=== PATIENT | female | born 1980 | race American Indian/Alaskan Native ===

== ENCOUNTER 2016-10-02 18:18 | Observation (INO) | payer MEDICAID ==
[2016-10-02 18:19] VITALS: BMI 24.3
[2016-10-02 18:38] VITALS: BP 132/86; PULSE 100; RESP 20; TEMP 98.8; O2SAT 96
[2016-10-02] MEDS ORDERED: Sodium Chloride 0.9% 1,000 ML IV ONE (19:29)
--- NOTE | 2016-10-02 19:29 | C.PDOC ---
History Of Present Illness Patient was brought by EMS for acute ETOH intoxication. Patient was drinking heavily since this morning. Denies any physical complaints at this time. Time Seen by Provider: 10/02/16 19:28 Chief Complaint (Nursing): Substance Abuse History Per: Patient History/Exam Limitations: no limitations Onset/Duration Of Symptoms: Hrs Current Symptoms Are (Timing): Better Suicide/Self Injury Attempted (Context): None Modifying Factor(s): Alcohol Severity: None Pain Scale Rating Of: 0 Associated Symptoms: denies: Depression, Suicidal Thoughts, Suicidal Plan Involuntary Hold By: None Recent travel outside of the [place]: No Additional History Per: Patient Past Medical History Reviewed: Historical Data, Nursing Documentation, Vital Signs Vital Signs: Last Vital Signs Temp 98.8 F 10/02/16 18:37 Pulse 100 H 10/02/16 18:37 Resp 20 10/02/16 18:37 BP 132/86 10/02/16 18:37 Pulse Ox 96 10/02/16 19:53 - Medical History PMH: Anemia, Anxiety (NO MEDS AT PRESENT), Arthritis, Asthma, Depression (NO MEDS AT PRESENT), Diabetes, Gastritis, Gastrointestinal Ulcer, Gall Bladder Disease, Pancreatitis Surgical History: Cholecystectomy, Endoscopy - [facility] Procedures CLOSED ENDOSCOPIC BIOPSY OF LARGE INTESTINE (01/22/15) ESOPHAGOGASTRODUODENOSCOPY [EGD] W/CLOSED BIOPSY (01/24/15) Family History: States: No Known Family Hx - Social History Hx Tobacco Use: Yes Hx Alcohol Use: Yes Hx Substance Use: No - Immunization History Hx Tetanus Toxoid Vaccination: Yes Hx Influenza Vaccination: No Hx Pneumococcal Vaccination: No Review Of Systems Constitutional: Negative for: Fever, Chills Eyes: Negative for: Redness ENT: Negative for: Throat Pain Cardiovascular: Negative for: Chest Pain Respiratory: Negative for: Shortness of Breath Gastrointestinal: Negative for: Nausea, Vomiting, Diarrhea Musculoskeletal: Negative for: Back Pain Skin: Negative for: Rash Neurological: Positive for: Other (ETOH intoxication). Negative for: Altered Mental Status Psych: Negative for: Anxiety Physical Exam - Physical Exam Appears: Non-toxic Skin: Warm, Dry Head: Atraumatic Oral Mucosa: Moist Neck: Supple Chest: Symmetrical, No Tenderness Cardiovascular: Rhythm Regular, No Murmur Respiratory: No Rales, No Rhonchi, No Wheezing Gastrointestinal/Abdominal: Soft, No Tenderness Back: Normal Inspection Extremity: Normal ROM Extremity: Bilateral: Atraumatic Neurological/Psych: Oriented x3 Gait: Steady ED Course And Treatment O2 Sat by Pulse Oximetry: 96 (Room air) Pulse Ox Interpretation: Normal Progress Note: Blood work and urinalysis ordered. IV fluids administered. went to re-asses the pt , but pt had eloped before any blood work has been done ED OBSERVATION Discharge: Yes Date of observation admission: 10/02/16 Time of observation admission: 19:31 - Observation admission statement Patient is being placed in observation because:: acute alcohol intoxication - Goals of Observation Goals of observation are:: sobriety Disposition Counseled Patient/Family Regarding: Studies Performed, Diagnosis - Disposition Disposition: ELOPEMENT - ER ONLY Disposition Time: 19:29 Condition: FAIR - Clinical Impression Clinical Impression: Alcohol intoxication - Scribe Statement The provider has reviewed the documentation as recorded by the Scribli Krishna All medical record entries made by the Scribe were at my direction and personally dictated by me. I have reviewed the chart and agree that the record accurately reflects my personal performance of the history, physical exam, medical decision making, and the department course for this patient. I have also personally directed, reviewed, and agree with the discharge instructions and disposition.
== END 2016-10-02 20:12 | disposition home or self-care (01) ==
LOC: C.ER 18:18 → C.9OBSV 19:30
PROVIDERS: ADMIT Emergency Medicine; ATTEND Emergency Medicine
DX: F10.120 Alcohol abuse with intoxication, uncomplicated (principal); Y90.9 Presence of alcohol in blood, level not specified; Z87.891 Personal history of nicotine dependence
CPT/HCPCS: 99282; G0378

== ENCOUNTER 2016-11-28 15:44 | Inpatient (IN) | payer MEDICAID ==
[2016-11-28 16:06] VITALS: BMI 26.6
[2016-11-28] MEDS ORDERED: Aluminum Hydroxide/Magnesium Hydroxide Susp (30 mL) PO STA (16:12)
[2016-11-28] MEDS ORDERED: Lidocaine 2% Viscous 100 ml PO STA (16:12)
[2016-11-28] MEDS ORDERED: Sodium Chloride 0.9% 500 ML IV ONE (16:12)
[2016-11-28] MEDS ORDERED: Belladonna-Phenobarbital PO STA (16:12)
[2016-11-28] MEDS ORDERED: Sodium Chloride 0.9% 1,000 ML ONE (16:31)
[2016-11-28] MEDS ORDERED: Aluminum Hydroxide/Magnesium Hydroxide Susp (30 mL) ONE (16:31)
[2016-11-28] MEDS ORDERED: Belladonna-Phenobarbital ONE (16:31)
[2016-11-28 16:32] LABS: BASO % 0.9 % (0.0-2.0); EOS # 0.1 K/uL (0.0-0.7); EOS % 1.7 % (0.0-4.0); HEMOGLOBIN 9.5 g/dL (11.0-16.0); LYMPH # 1.4 K/uL (1.0-4.3); LYMPH % 32.1 % (20.0-40.0); MEAN CORPUSCULAR HGB CONC 31.1 g/dL (33.0-37.0); MONO # 0.3 K/uL (0.0-0.8); MONO % 6.5 % (0.0-10.0); NEUT # 2.6 K/uL (1.8-7.0); NEUT % 58.8 % (50.0-75.0); NRBC % 0.1 % (0.0-2.0); RBC 3.95 Mil/uL (3.80-5.20); RED CELL DISTRIBUTION WIDTH 18.1 % (11.5-14.5); WHITE BLOOD COUNT 4.5 K/uL (4.8-10.8)
[2016-11-28 16:44] LABS: ALBUMIN 3.9 g/dL (3.5-5.0)
[2016-11-28 16:47] LABS: ALB/GLOB RATIO 1.4 (1.0-2.1); ALT/SGPT 40 U/L (9-52); AST/SGOT 54 U/L (14-36); BLOOD UREA NITROGEN 7 mg/dL (7-17); CALCIUM 8.9 mg/dl (8.6-10.4); GFR AFRICAN-AMERICAN > 60; GFR NON-AFRICAN AMERICAN > 60
[2016-11-28 16:53] LABS: LIPASE < 10 U/L (23-300)
[2016-11-28 17:23] LABS: BARBITURATES, UR NEGATIVE (NEGATIVE); BENZODIAZEPINES, UR NEGATIVE (NEGATIVE)
--- NOTE | 2016-11-28 17:23 | RAD ---
PROCEDURE: CHEST RADIOGRAPH, 1 VIEW HISTORY: abd pain COMPARISON: Comparison is made to 11/19/2014 FINDINGS: LUNGS: Clear. PLEURA: No pneumothorax or pleural fluid seen. CARDIOVASCULAR: Normal. OSSEOUS STRUCTURES: No significant abnormalities. VISUALIZED UPPER ABDOMEN: Normal. OTHER FINDINGS: Right-sided Infusaport is seen in place. IMPRESSION: No active disease.
[2016-11-28 17:27] LABS: OPIATES, UR NEGATIVE (NEGATIVE); PHENCYCLIDINE, UR NEGATIVE (NEGATIVE)
[2016-11-28] MEDS ORDERED: HYDROmorphone 0.5 mg/0.5 ml ISec IVP STA ×3 (17:33→18:43)
[2016-11-28 17:39] LABS: HCG,QUALITATIVE URINE NEGATIVE (NEGATIVE)
[2016-11-28 17:45] LABS: SQUAMOUS EPITHIAL 2 /hpf (0-5); URINE BILIRUBIN NEGATIVE (NEGATIVE); URINE BLOOD NEGATIVE (NEGATIVE); URINE CLARITY Clear (Clear); URINE COLOR Yellow (YELLOW); URINE GLUCOSE (UA) 3+ mg/dL (Normal); URINE LEUKOCYTE ESTERASE NEG Leu/uL (Negative); URINE NITRATE NEGATIVE (NEGATIVE); URINE PROTEIN 2+ mg/dL (NEGATIVE)
[2016-11-28] MEDS ORDERED: Sodium Chloride 0.9% 1,000 ML IV ONE (18:43)
--- NOTE | 2016-11-28 18:55 | C.PDOC ---
Time Seen by Provider: 11/28/16 16:04 Chief Complaint (Nursing): Chest Pain Past Medical History Vital Signs: Last Vital Signs Temp 99.6 F 11/28/16 16:05 Pulse 89 11/28/16 17:40 Resp 16 11/28/16 17:40 BP 135/91 H 11/28/16 17:40 Pulse Ox 98 11/28/16 17:40 - Medical History PMH: Anemia, Anxiety (NO MEDS AT PRESENT), Arthritis, Asthma, Depression (NO MEDS AT PRESENT), Diabetes, Gastritis, Gastrointestinal Ulcer, Gall Bladder Disease, Pancreatitis, Seizures Denies: Chronic Kidney Disease Surgical History: Cholecystectomy, Endoscopy - [facility] Procedures CLOSED ENDOSCOPIC BIOPSY OF LARGE INTESTINE (01/22/15) ESOPHAGOGASTRODUODENOSCOPY [EGD] W/CLOSED BIOPSY (01/24/15) Family History: States: Unknown Family Hx - Social History Hx Tobacco Use: Yes Hx Alcohol Use: Yes Hx Substance Use: No - Immunization History Hx Tetanus Toxoid Vaccination: Yes Hx Influenza Vaccination: No Hx Pneumococcal Vaccination: No ED Course And Treatment - Laboratory Results Result Diagrams: 11/28/16 16:26 11/28/16 16:26 O2 Sat by Pulse Oximetry: 98 Disposition Discussed With DrAnnette: Abhishek Booth Counseled Patient/Family Regarding: Studies Performed, Diagnosis - Disposition Disposition: HOSPITALIZED Disposition Time: 18:55 Condition: GUARDED - Clinical Impression Clinical Impression: Gastritis, Abdominal pain Decision To Admit - Pt Status Changed To: Hospital Disposition Of: Inpatient - Admit Certification Admit to Inpatient:: After my assessment, the patient will require hospitalization for at least two midnights. This is because of the severity of symptoms shown, intensity of services needed, and/or the medical risk in this patient being treated as an outpatient. - InPatient: Physician Admission Certification: I certify that this patient requires 2 or more midnights of care for the following reason:: unable to tolerate PO, will need GI work up and probable endoscopy - . Bed Request Type: Regular Patient Diagnosis: Gastritis, Abdominal pain
--- NOTE | 2016-11-28 19:01 | C.PDOC ---
History Of Present Illness 36 y/o female, with PMHx of asthma, HTN, DM, chronic pancreatitis, gastroparesis , and gastritis, presents to the ED for evaluation of epigastric pain which began around 2 days ago. She describes her pain as burning in nature and notes her pain radiates towards her chest. Patient also notes slight nausea and had slight vomiting in ED. As per patient, she has a previous history of alcohol abuse but notes she has not been drinking. She denies fever, chills, headache, shortness of breath. ADditionally, bob requests Dilaudid for pain and states she is allergic to morphine. Time Seen by Provider: 11/28/16 16:04 Chief Complaint (Nursing): Chest Pain History Per: Patient History/Exam Limitations: no limitations Onset/Duration Of Symptoms: Days Current Symptoms Are (Timing): Still Present Quality: "Pain", Other (+burning ) Associated Symptoms: Nausea Additional History Per: Patient Past Medical History Reviewed: Historical Data, Nursing Documentation, Vital Signs Vital Signs: Last Vital Signs Temp 98.7 F 12/02/16 17:00 Pulse 115 H 12/02/16 17:00 Resp 20 12/02/16 17:00 BP 137/97 H 12/02/16 17:00 Pulse Ox 100 12/02/16 17:00 - Medical History PMH: Anemia, Anxiety (NO MEDS AT PRESENT), Arthritis, Asthma, Depression (NO MEDS AT PRESENT), Diabetes, Gastritis, Gastrointestinal Ulcer, Gall Bladder Disease, Pancreatitis, Seizures Surgical History: Cholecystectomy, Endoscopy - [facility] Procedures CLOSED ENDOSCOPIC BIOPSY OF LARGE INTESTINE (01/22/15) ESOPHAGOGASTRODUODENOSCOPY [EGD] W/CLOSED BIOPSY (01/24/15) Family History: States: Unknown Family Hx - Social History Hx Tobacco Use: Yes Hx Alcohol Use: Yes Hx Substance Use: No - Immunization History Hx Tetanus Toxoid Vaccination: Yes Hx Influenza Vaccination: No Hx Pneumococcal Vaccination: No Review Of Systems Constitutional: Negative for: Fever, Chills Cardiovascular: Positive for: Chest Pain Respiratory: Negative for: Shortness of Breath Gastrointestinal: Positive for: Nausea, Vomiting, Abdominal Pain (epigastric ) Physical Exam - Physical Exam Appears: Non-toxic, Other (+painful distress ) Skin: Normal Color, Warm, Dry Head: Atraumatic, Normacephalic Eye(s): bilateral: Normal Inspection Oral Mucosa: Moist Neck: Supple Chest: Symmetrical, No Deformity, No Tenderness Cardiovascular: Rhythm Regular, No Murmur Respiratory: Normal Breath Sounds, No Rales, No Rhonchi, No Wheezing Gastrointestinal/Abdominal: Soft, No Tenderness (epigastric ), No Guarding, No Rebound Back: Normal Inspection, No Vertebral Tenderness Extremity: Normal ROM, No Tenderness, No Calf Tenderness, Capillary Refill ( less than 2 seconds), No Deformity, No Other (pitting edema ) Neurological/Psych: Normal Speech, Normal Cognition Gait: Steady ED Course And Treatment - Laboratory Results Result Diagrams: 12/01/16 07:14 11/30/16 06:38 ECG: Interpreted By Me, Viewed By Me ECG Rhythm: Sinus Rhythm Interpretation Of ECG: NSP [address] elevations or depressions. Rate From EC O2 Sat by Pulse Oximetry: 98 (on RA) Pulse Ox Interpretation: Normal - Other Rad CXR X-Ray: Interpreted by Me, Viewed By Me, Read By Radiologist Interpretation: Accession No. : [id number]. Patient Name / ID : DARIO Doan / [id number]. Exam Date : 11/28/2016 16:23:06 ( Approved ). Study Comment : Sex / Age : F / 36Y. Creator : Robert Galindo. Dictator : Robert Galindo. Sensory Scientist : Rehabilitation Nurse : Robert Galindo. Approver2 : Report Date : 11/28/2016 17:22:26. My Comment : . PROCEDURE: CHEST RADIOGRAPH, 1 VIEW. HISTORY: abd pain. COMPARISON: Comparison is made to 11/19/2014. FINDINGS: LUNGS: Clear. PLEURA: No pneumothorax or pleural fluid seen. CARDIOVASCULAR: Normal. OSSEOUS STRUCTURES: No significant abnormalities. VISUALIZED UPPER ABDOMEN: Normal. OTHER FINDINGS: Right-sided Infusaport is seen in place. IMPRESSION: No active disease. Medical Decision Making Medical Decision Making: Impression: 36y/o female with burning epigastric pain Prior Records reviewed: Patient has presented to ED multiples in the past for complaints related to abdominal pain. Patient has presented multiple times requesting Dilaudid. Progress: labs, EKG ordered and reviewed. Patient received Dilaudid IV, PO, Lidocaine 2% Viscous, Maalox PO, Pepcid IV, Zofran IV, and IV Fluids CXR ordered to r/o pneumothorax; results show no indication of such. Case discussed with Dr. Heath Booth who advises to order CT A/P. Disposition - Disposition Disposition: HOSPITALIZED Disposition Time: 18:55 Condition: GUARDED - Clinical Impression Clinical Impression: Gastritis, Abdominal pain - Scribe Statement The provider has reviewed the documentation as recorded by the Scribe (Fern Manuel) Provider Attestation: All medical record entries made by the Scribe were at my direction and personally dictated by me. I have reviewed the chart and agree that the record accurately reflects my personal performance of the history, physical exam, medical decision making, and the department course for this patient. I have also personally directed, reviewed, and agree with the discharge instructions and disposition.
[2016-11-28] MEDS ORDERED: HYDROmorphone 1 mg/ml ISec ONE (19:42)
[2016-11-28] MEDS ORDERED: (Novolog) Insulin Aspart, Recombinant 100 u/ml 10 ml vial SC ONE (21:38)
[2016-11-28] MEDS ORDERED: Albuterol HFA 90 mcg/actuation (8 g) IH PRN (21:42)
[2016-11-28] MEDS: Dextrose 5%/0.9% NS 1,000 ML IV SCH (22:05)
[2016-11-28] MEDS: HYDROmorphone 0.5 mg/0.5 ml ISec IVP PRN (22:16)
[2016-11-28] MEDS ORDERED: Insulin Detemir 100 units/ml Vial (Levemir) SC STA (23:26)
[2016-11-29] MEDS: HYDROmorphone 0.5 mg/0.5 ml ISec IVP PRN ×4 (04:06→22:28)
[2016-11-29] MEDS: Dextrose 5%/0.9% NS 1,000 ML IV SCH ×3 (06:29→21:49)
[2016-11-29 07:10] LABS: EOS # 0.2 K/uL (0.0-0.7); EOS % 4.2 % (0.0-4.0); HEMOGLOBIN 8.4 g/dL (11.0-16.0); LYMPH # 2.2 K/uL (1.0-4.3); MEAN CELL VOLUME 77.3 fL (81.0-99.0); MEAN CORPUSCULAR HEMOGLOBIN 24.3 pg (27.0-31.0); MEAN CORPUSCULAR HGB CONC 31.4 g/dL (33.0-37.0); MEAN PLATELET VOLUME 8.8 fL (7.2-11.7); MONO # 0.4 K/uL (0.0-0.8); MONO % 8.6 % (0.0-10.0); NEUT # 1.8 K/uL (1.8-7.0); NEUT % 38.2 % (50.0-75.0); RBC 3.47 Mil/uL (3.80-5.20); RED CELL DISTRIBUTION WIDTH 18.7 % (11.5-14.5); WHITE BLOOD COUNT 4.6 K/uL (4.8-10.8)
[2016-11-29 07:52] LABS: GFR AFRICAN-AMERICAN > 60; GFR NON-AFRICAN AMERICAN > 60
[2016-11-29 07:53] LABS: ALB/GLOB RATIO 1.3 (1.0-2.1); ALT/SGPT 34 U/L (9-52); AST/SGOT 38 U/L (14-36); BLOOD UREA NITROGEN 3 mg/dL (7-17); CALCIUM 8.1 mg/dl (8.6-10.4)
[2016-11-29 07:54] LABS: HDL CHOLESTEROL 51 mg/dL (30-70)
[2016-11-29 08:04] LABS: LDL CHOLESTEROL 74 mg/dL (0-129)
[2016-11-29] MEDS: (Novolog) Insulin Aspart, Recombinant 100 u/ml 10 ml vial SC SCH ×4 (08:14→21:57)
--- NOTE | 2016-11-29 08:25 | RAD ---
PROCEDURE: Radiographs of the chest and abdomen (obstructive series) HISTORY: abdominal pain COMPARISON: Comparison is made to the previous chest x-ray dated 11/28/[address] of the abdomen dated 11/07/2016 TECHNIQUE: AP radiograph of the chest, with upright and supine radiographs of the abdomen. FINDINGS: CHEST: Lungs: Clear. Cardiovascular: Normal size heart. No pulmonary vascular congestion. Pleura: No pleural fluid. No pneumothorax. Other findings: Right-sided Infusaport is seen in place. ABDOMEN AND PELVIS: Bowel: Unremarkable bowel gas pattern. No evidence of mechanical obstruction. Free air: None. Bones: Unremarkable. Other findings: Surgical clips at the right upper abdomen suggestive of prior cholecystectomy. Foci of calcification at the epigastric and mid upper abdomen corresponding to the calcifications seen in the pancreas in the prior CT and suggestive of chronic pancreatitis IMPRESSION: No radiographic evidence of acute pathology in the chest and abdomen. . No evidence of mechanical bowel obstruction.
[2016-11-29] MEDS ORDERED: Insulin Detemir 100 units/ml Vial (Levemir) SC SCH ×2 (10:00→22:00)
--- NOTE | 2016-11-29 10:22 | CP.PCM.PN ---
Subjective - Date & Time of Evaluation Date of Evaluation: 11/29/16 Time of Evaluation: 10:10 - Subjective Subjective: Patient is seen and examined at bedside. She is still complaining of epigastric burning pain radiating to the throat. Nauseous, no vomiting since last night. denies any other complaints. Objective - Vital Signs/Intake and Output Vital Signs (last 24 hours): Temp Pulse Resp BP Pulse Ox 98.2 F 63 20 152/95 H 100 11/29/16 08:30 11/29/16 08:30 11/29/16 08:30 11/29/16 08:30 11/29/16 08:30 Intake and Output: 11/29/16 11/29/16 06:59 18:59 Intake Total 1000 Balance 1000 - Medications Medications: Current Medications Albuterol (Ventolin Hfa 90 Mcg/Actuation (8 G)) 2 puff IH RQ6 PRN PRN Reason: SOB Hydromorphone HCl (Dilaudid) 0.5 mg IVP Q6H PRN PRN Reason: Pain, moderate (4-7) Last Admin: 11/29/16 10:06 Dose: 0.5 mg Dextrose/Sodium Chloride (Dextrose 5%/0.9% Ns 1000 Ml) 1,000 mls @ 100 mls/hr IV .Q10H ANUP Last Admin: 11/29/16 06:29 Dose: 100 mls/hr Insulin Aspart (Novolog) 0 unit SC ACHS ANUP PRN Reason: Protocol Last Admin: 11/29/16 08:14 Dose: Not Given Insulin Detemir (Levemir) 12 unit SC Q12H ANUP Metoclopramide HCl (Reglan) 10 mg IVP DAILY [facility] Ondansetron HCl (Zofran Inj) 4 mg IVP Q8 PRN PRN Reason: Nausea/Vomiting Pantoprazole Sodium (Protonix Inj) 40 mg IVP Q12 ANUP Last Admin: 11/28/16 22:12 Dose: 40 mg - Labs Labs: 11/29/16 07:00 11/29/16 07:00 Assessment and Plan - Assessment and Plan (Free Text) Assessment: Young female with Acute gastritis symptoms, H/O chronic gastritis, IDDM, S/P hospital discharge from [facility] 2 days ago, admitted for DKA, Chronic pancreatitis, Gastroparesis, h/ o ETOH abuse, Asthma Plan: Start clear liquids. Start Maalox as needed Supplement potassium for hypokalemia Continue with protonix BID Endocrinology and GI consults requested Continue with pain meds as needed
[2016-11-29] MEDS ORDERED: Potassium Chloride 20 mEq ER Tab PO STA (10:51)
[2016-11-29] MEDS: Alum-Mag Hydrox-Simethicone Susp (30 mL) PO SCH ×2 (12:25→18:17)
[2016-11-29 14:09] LABS: FOLATE 19.6 ng/mL
[2016-11-29 14:54] LABS: IRON 43 ug/dL (37-170)
[2016-11-29 15:04] LABS: % IRON SATURATION 14 (20-55); TOTAL IRON BINDING CAPACITY 315 ug/dL (250-450)
[2016-11-29] MEDS ORDERED: (Novolog) Insulin Aspart, Recombinant 100 u/ml 10 ml vial SC SCH (16:30)
[2016-11-30] MEDS: Sodium Chloride 0.45% 1,000 ML IV SCH (00:23)
[2016-11-30] MEDS: Alum-Mag Hydrox-Simethicone Susp (30 mL) PO SCH ×3 (03:00→17:36)
--- NOTE | 2016-11-30 03:16 | HP ---
CHIEF COMPLAINT: Severe epigastric burning pain associated with nausea and vomiting, not able to tolerate any p.o. feeds for the past 2 days. HISTORY OF PRESENT ILLNESS: Ms. Anderson is a 36-year-old female with past medical history of insulin-dependent diabetes mellitus for the past 10 years, asthma, questionable seizure disorder, chronic pancreatitis from ETOH abuse, chronic gastritis, history of gastroparesis, anxiety, who has been following up with Dr. Castro as per the patient and did not want to follow up with him and is in the process of looking for a new physician, would like to follow up with Dr. Chisholm in the future, who was admitted to [facility] on Wednesday with complaints of epigastric burning pain associated with nausea and vomiting and at [facility], she was found to be in DKA. She was treated and she discharged on Wednesday. The patient claims that after her hospital discharge, her epigastric burning pain persisted and since then she has not been able to tolerate any p.o. feeds because of the pain, now feels like a ball of fire coming up from epigastric region to the throat. The pain was 8-9/10, not associated with any headache, dizziness, diaphoresis, not associated with any other symptoms. As such, she was not able to tolerate any p.o. feeds, thus she came into the emergency room. In the emergency room, the patient was given multiple doses of pain medications and antacids with which the patient's symptoms persisted and not able to tolerate p.o. The patient is being admitted for further evaluation and management. When I examined the patient, she denies any headaches, dizziness, denies any vomiting, but complaining of nausea. Her burning pain is slightly better with Dilaudid. Denies any abdominal pain, diarrhea, or constipation. Denies any urinary complaints. Denies any leg pains or leg cramps. Denies any other neurologic symptoms. PAST MEDICAL HISTORY: As described chronic gastritis, chronic pancreatitis, gastroparesis, ETOH abuse, asthma, diabetes mellitus, questionable seizure disorder, not on any medication. PAST SURGICAL HISTORY: Cholecystectomy. FAMILY HISTORY: Coronary artery disease and bypass surgery in mother. Hypertension in mother. Father has history of asthma. PERSONAL HISTORY: She is , having 1 daughter, currently unemployed. SOCIAL HISTORY: She smokes 6 cigarettes per day for many years. Used to drink 1 pint of vodka every day. She stopped drinking about a year ago. Denies any other drug abuse. ALLERGIES: SHE IS ALLERGIC TO MORPHINE, DEVELOPS HIVES AND ITCHING. HOME MEDICATIONS: Include: 1. Protonix 40 mg daily. 2. Reglan 10 mg daily. 3. Levemir 20 units twice a day. 4. Neurontin 300 mg p.o. t.i.d. 5. Pepcid 20 mg daily. 6. Creon 31,000 units p.o. b.i.d. 7. Albuterol as needed. 8. NovoLog 10 units t.i.d. 9. Pancrease. 10. Metformin. REVIEW OF SYSTEMS: As described in history of present illness. All other systems reviewed and were found to be negative. PHYSICAL EXAMINATION GENERAL: Young female lying in bed in no acute distress. VITAL SIGNS: Blood pressure 152/95, pulse 63, respirations 20, temperature 98.2 degrees Fahrenheit, and O2 saturation 100% on room air. HEENT: Pupils are equal, round, and reacting to light and accommodation. Extraocular muscles intact. No icterus. Mild pallor. No oral thrush. No cranial congestion. NECK: Supple. No JVD. No thyromegaly. CVS: S1 and S2 present and regular. CHEST/LUNGS: Clear bilaterally on expiration. Bilateral vesicular breath sounds. No wheezing. No rhonchi. ABDOMEN: Soft. Bowel sounds present. Epigastric tenderness noted. No guarding. No rigidity. No rebound tenderness noted. EDGER HAND: Alert, awake, and oriented x3. No focal deficits noted. EXTREMITIES: No edema. Palpable peripheral pulses. LABORATORY DATA: From ED shows WBC of 4.5, hemoglobin 9.5, hematocrit 30.4, and platelets 151. Sodium 135, potassium 3.7, chloride 98, bicarbonate 22, BUN 7, creatinine 0.6, glucose 283, calcium 8.9, total bilirubin 0.6, AST 54, ALT 40, alkaline phosphatase 83, total protein 6.5, albumin 3.9, lipase less than 10. UA: Specific gravity 1.036, pH 5.0, protein 2+, glucose 3+, ketones 1+. Urine drug screen negative. Beta HCG negative. Abdominal series negative for any obstruction or any acute pathology. Chest x-ray, no active disease. ASSESSMENT: A young female with multiple medical problems with ethanol abuse resulting in chronic pancreatitis, chronic gastritis, gastroparesis, insulin-dependent diabetes mellitus, asthma, questionable seizure disorder, anxiety, who was [facility] for diabetic ketoacidosis and discharged on Wednesday. The patient returning to [facility] ED for epigastric burning pain, nausea, vomiting, not able to tolerate oral. The patient is being admitted for further management. 1. Epigastric burning pain, probably secondary to exacerbation of her gastritis symptoms. 2. Gastroparesis. 3. Chronic pancreatitis. 4. Uncontrolled diabetes mellitus. 5. History of anxiety, not on any medication. 6. Status post colonoscopy in 11/2015 and status post esophagogastroduodenoscopy in 01/2015, negative Helicobacter pylori. PLAN: The patient is being admitted to medical floor. The patient is kept n.p.o., given IV fluids, D5 normal saline at 100 mL an hour, given medication of Dilaudid, continue with Protonix 40 mg IV twice daily. I will do Accu-Chek q.6 hours. We will obtain hemoglobin A1c level and obtain GI consult with *------*, who was known to the patient. We will obtain endocrinology consult with Dr. Machuca. When the patient is able to tolerate p.o., we will start clear liquids and then advance as tolerated. We will give Zofran as needed and Reglan as ordered. I will give SCD for DVT prophylaxis. We will ask further recommendation as her clinical course progresses. Abhishek Booth MD
[2016-11-30] MEDS: HYDROmorphone 0.5 mg/0.5 ml ISec IVP PRN ×4 (04:31→23:58)
[2016-11-30 06:57] LABS: HEMOGLOBIN 8.2 g/dL (11.0-16.0); MEAN CELL VOLUME 77.2 fL (81.0-99.0); MEAN CORPUSCULAR HEMOGLOBIN 24.3 pg (27.0-31.0); MEAN CORPUSCULAR HGB CONC 31.5 g/dL (33.0-37.0); MEAN PLATELET VOLUME 9.4 fL (7.2-11.7); RBC 3.37 Mil/uL (3.80-5.20); RED CELL DISTRIBUTION WIDTH 17.8 % (11.5-14.5); WHITE BLOOD COUNT 4.5 K/uL (4.8-10.8)
[2016-11-30 07:19] LABS: ALBUMIN 3.1 g/dL (3.5-5.0); ALT/SGPT 31 U/L (9-52); AST/SGOT 24 U/L (14-36); CALCIUM 8.3 mg/dl (8.6-10.4); GFR AFRICAN-AMERICAN > 60; GFR NON-AFRICAN AMERICAN > 60
--- NOTE | 2016-11-30 07:42 | PN ---
ENDOCRINOLOGY FOLLOWUP NOTE: SUBJECTIVE: This is a 36-year-old female with recent uncontrolled type 2 insulin-requiring diabetes, presenting here with diffuse abdominal pain and apparent intractable vomiting episodes and is now being followed closely for metabolic management. The patient apparently is chemically dependent on Dilaudid medications for pain relief and has been to several hospitals in the past and also to this hospital for several readmissions with the same identical complaint of abdominal pain. Her GI workup apparently has been all normal at this time as noted. LABORATORY DATA: Her latest chemistry showed a BUN of 3, sodium 138, potassium 3.4, chloride 102, CO2 of 25, glucose 139, and creatinine 0.7. Her glucose levels now are ranging from 162-169 and 384 mg/dL. ASSESSMENT AND PLAN: Her diffuse abdominal pain has subsided at this time, and her diet has been advanced to a liquid diet for lunchtime and we will actually advance to a regular solid, carb-consistent diet as ordered with heart-healthy portions also as ordered for dinnertime today. We will also modify her basal and bolus insulin regimen and increase Levemir to 20 units subcutaneous at bedtime daily to start tonight. We will also be adding NovoLog given as 8 units subcutaneous t.i.d before meals as given. We will titrate incrementally as indicated to optimize metabolic control. We will obtain serial lipase and lipid profile levels as ordered. We will follow, advise, and support. Marie De La Rosa MD
[2016-11-30 07:44] LABS: ALB/GLOB RATIO 1.2 (1.0-2.1); BLOOD UREA NITROGEN 2 mg/dL (7-17)
[2016-11-30] MEDS: (Novolog) Insulin Aspart, Recombinant 100 u/ml 10 ml vial SC SCH ×7 (08:43→22:00)
[2016-11-30] MEDS ORDERED: Potassium Chloride 20 mEq ER Tab PO STA (10:11)
--- NOTE | 2016-11-30 10:12 | CP.PCM.PN ---
Subjective - Date & Time of Evaluation Date of Evaluation: 11/30/16 Time of Evaluation: 10:20 - Subjective Subjective: Progress nite dictated # [id number] Objective - Vital Signs/Intake and Output Vital Signs (last 24 hours): Temp Pulse Resp BP Pulse Ox 98.2 F 74 20 129/85 100 11/30/16 07:27 11/30/16 07:27 11/30/16 07:27 11/30/16 07:27 11/30/16 07:27 Intake and Output: 11/30/16 11/30/16 06:59 18:59 Intake Total 6850 Balance 6850 - Medications Medications: Current Medications Al Hydrox/Mg Hydrox/Simethicone (Maalox Plus 30 Ml) 30 ml PO Q8H [facility] Last Admin: 11/30/16 03:00 Dose: 30 ml Albuterol (Ventolin Hfa 90 Mcg/Actuation (8 G)) 2 puff IH RQ6 PRN PRN Reason: SOB Hydromorphone HCl (Dilaudid) 0.5 mg IVP Q6H PRN PRN Reason: Pain, moderate (4-7) Last Admin: 11/30/16 04:31 Dose: 0.5 mg Sodium Chloride (Sodium Chloride 0.45%) 1,000 mls @ 75 mls/hr IV .[id number] [facility] Last Admin: 11/30/16 00:23 Dose: 75 mls/hr Insulin Aspart (Novolog) 0 unit SC ACHS ANUP PRN Reason: Protocol Last Admin: 11/30/16 08:43 Dose: Not Given Insulin Aspart (Novolog) 10 unit SC AC [facility] Last Admin: 11/30/16 08:43 Dose: Not Given Insulin Detemir (Levemir) 20 unit SC HS [facility] Last Admin: 11/29/16 21:55 Dose: 20 unit Metoclopramide HCl (Reglan) 10 mg IVP DAILY [facility] Last Admin: 11/30/16 09:19 Dose: 10 mg Ondansetron HCl (Zofran Inj) 4 mg IVP Q8 PRN PRN Reason: Nausea/Vomiting Pantoprazole Sodium (Protonix Inj) 40 mg IVP Q12 [facility] Last Admin: 11/30/16 09:19 Dose: 40 mg Potassium Chloride (K-Dur 20 Meq Er Tab) 40 meq PO STAT STA Stop: 11/30/16 10:12 - Labs Labs: 11/30/16 06:38 11/30/16 06:38
[2016-11-30] MEDS ORDERED: Sodium Chloride 0.9% 1,000 ML IV ONE (13:50)
[2016-11-30] MEDS ORDERED: Propofol 10 mg/ml Inj (20 ML) ONE ×2 (13:50→14:00)
[2016-11-30 16:17] VITALS: RESP 20
[2016-11-30] MEDS: Sucralfate 1 gm/10 ml Oral Susp UD PO SCH (16:30)
[2016-11-30] MEDS: LIPASE/PROTEASE/AMYLASE 4,200 U ECC PO SCH (18:00)
[2016-11-30] MEDS ORDERED: Insulin Detemir 100 units/ml Vial (Levemir) SC SCH ×2 (22:00)
--- NOTE | 2016-12-01 00:13 | CON ---
DATE: 11/29/2016 HISTORY OF PRESENT ILLNESS: I was called for a GI consultation by the admitting MD. The patient is seen and fully examined and chart reviewed on 11/29/2016 for GI consultation. All the available lab and radiology study results, current and previous medication list, current and previous medical events as well as allergies to medication list were reviewed, is discussed at length with the staff on the floor. This is a 36-year-old female, with past medical history including, but not limited to chronic pancreatitis, peptic ulcer disease, diabetic gastroparesis, apparently was admitted to the hospital due to severe midepigastric pain, started couple of days ago, sharp, burning in nature, radiates to the lower abdomen as well as her chest with nausea, dyspepsia, with more than 1 episode of vomiting. No reported active bleeding. No chills or fever. No actual chest pain or palpitation. PAST MEDICAL HISTORY: Including but not limited to: 1. Osteoarthritis. 2. Bronchial asthma. 3. Depression. 4. Severe anxiety syndrome. 5. Recurrent episodes of pancreatitis. 6. Seizure disorder. 7. Peptic ulcer disease. 8. Diabetic gastroparesis with gastric ulcer. 9. Status post cholecystectomy. 10. Periods of anemia before. FAMILY HISTORY: Unknown. SOCIAL HISTORY: Reports cigarette smoking and alcohol intake. CURRENT MEDICATIONS: Medication list were reviewed. ALLERGIES TO MEDICATIONS: MORPHINE AND SHELLFISH. LABORATORY DATA: Most recent lab workup showed low hemoglobin of 8.4, hematocrit 26.8 with low indices, highly suggestive of hypochromic microcytic anemia, with low white blood cells and thrombocytopenia of 125 with low potassium of 3.4, low BUN and creatinine 3 and 0.5. Increased blood glucose level of 384, AST mildly elevated *------*, but normal AST with low albumin 3.0, low total protein 5.3. B12 and folate was reported to be within normal limit. Abdominal obstructive series was reported to be negative. PHYSICAL EXAMINATION GENERAL: A 36-year-old female, awake, alert and oriented complaining of severe abdominal pain. VITAL SIGNS: Afebrile, pulse of 82, respiratory rate 20-22, with blood pressure of 130/84. HEENT: Showed pale dry oral mucous membrane. Nonicteric sclerae. LUNGS: Scattered crepitation. Decreased air entry at bases. HEART: Positive S1 and S2. ABDOMEN: Soft with diffuse tenderness mainly in the mid epigastric area. No masses or organomegaly. No rebound tenderness or guarding. RECTAL: Patient refused. EXTREMITIES: Without edema, clubbing or cyanosis. NEUROLOGIC: No neurological deficits, sensory or motor. IMPRESSION: 1. Acute gastritis with element of gastroparesis. 2. Rule out gastric versus duodenal ulcer. 3. Chronic pancreatitis by history. 4. Poorly controlled diabetes mellitus. 5. Hypochromic microcytic anemia through large blood loss versus occult gastrointestinal malignancy, less likely. 6. Known history of depression as well as severe anxiety syndrome. SUGGESTIONS: 1. I agree with your plan. 2. Reglan IV. 3. *------*. 4. Proton pump inhibitors IV. 5. Cancer markers. 6. Abdominal ultrasound. 7. Creon p.o. 24,000 units twice a day with meals. 8. Upper endoscopy when the patient is more stable clinically. 9. Further recommendation to follow. Thank you for letting me participate in your patient's case management. Xander Dominique MD
[2016-12-01] MEDS: Sodium Chloride 0.45% 1,000 ML IV SCH (01:24)
[2016-12-01] MEDS: Alum-Mag Hydrox-Simethicone Susp (30 mL) PO SCH ×3 (02:30→17:55)
--- NOTE | 2016-12-01 02:36 | PN ---
DATE: 11/30/2016 SUBJECTIVE: The patient was seen and examined this morning. The patient is feeling slightly better. Her epigastric pain is improved from yesterday, but still not able to tolerate p.o. feeds. She is scheduled for possible endoscopy today. Denies any other new complaints. PHYSICAL EXAMINATION GENERAL: Young female, lying in bed, in no acute distress. VITAL SIGNS: Blood pressure 109/79, pulse 77, respirations 12, temperature 97.8 degrees Fahrenheit, O2 saturations 100% on room air. HEENT: Pupils equal, round, and reacting to light and accommodation. Extraocular muscles intact. No icterus. Positive pallor. No oral thrush. No pharyngeal congestion. NECK: Supple. No JVD. No thyromegaly. CHEST: Lungs are clear bilaterally on respiration. LUNGS: Bilateral vesicular breath sounds. No wheezing. No rhonchi. CARDIOVASCULAR: S1 and S2 present, regular. ABDOMEN: Soft. Bowel sounds present. Epigastric tenderness noted. No guarding, no rigidity, no rebound tenderness noted. [employer]: Alert, awake, and oriented x3. No focal deficits noted. EXTREMITIES: No edema. Palpable peripheral pulses. LABORATORY DATA: Labs from this morning, WBC 4.5, hemoglobin 8.2, hematocrit 26, platelets 123. Sodium 135, potassium 3.5, chloride 100, bicarbonate 26, BUN 2, creatinine 0.6, glucose 127, total bilirubin 0.4, AST 24, ALT 31, alkaline phosphatase 52, total protein 5.6, albumin 3.1. Urine test negative. MEDICATIONS: Her medications include Maalox, albuterol, Dilaudid as needed, insulin, Protonix. ASSESSMENT AND PLAN: Young female with history of diabetes mellitus, gastroparesis, chronic gastritis status post EGD, status post colonoscopy; asthma, recently admitted for DKA, admitted to [facility] for acute gastritis symptoms with persistent nausea and vomiting, not able to tolerate p.o. The patient underwent EGD today consistent with esophagitis, gastritis. Endocrinology and GI consults appreciated, we will continue with current medication, will follow up with the GI. If the patient is clinically stable, we will plan discharging the patient home in a.m. Abhishek Booth MD [facility] # [id number]
[2016-12-01 02:59] LABS: MCH 24.3 pg (27.0-33.0); MCV 79.8 fL (80.0-100.0)
--- NOTE | 2016-12-01 04:56 | PN ---
ROOM: 361 This is a 36-year-old female with recent uncontrolled type 2 insulin-requiring diabetes, presenting here with epigastric pain and apparent chemical dependence on narcotic analgesics, especially Dilaudid and is now also being followed closely for metabolic management. Her oral intake is quite variable at this time as noted. She underwent an upper endoscopy today with concomitant withholding of the morning insulin regimen and expected hyperglycemic accelerations by mid-day today as noted. Her morning glucose levels were actually excellent ranging from 100 to 127 mg/dL. It was 354 early this morning as noted. The latest chemistries showed a BUN of 2, sodium 135, potassium 3.5, chloride 100, CO2 26, glucose 141, and creatinine 0.6. So, at this time, we will modify her basal and bolus insulin regimen and increase the NovoLog to 14 units subcu t.i.d. before meals, to start tonight as ordered. We will also increase and titrate her basal insulin with Levemir to be given as 24 units subcu at bedtime daily to start tonight. We will continue the low-dose correction scale using NovoLog insulin as ordered. We will follow and advise accordingly. Marie De La Rosa MD
[2016-12-01] MEDS: HYDROmorphone 0.5 mg/0.5 ml ISec IVP PRN ×2 (06:10→11:00)
[2016-12-01 07:30] LABS: BASO % 0.4 % (0.0-2.0); EOS # 0.1 K/uL (0.0-0.7); EOS % 2.8 % (0.0-4.0); HEMOGLOBIN 8.9 g/dL (11.0-16.0); LYMPH # 1.3 K/uL (1.0-4.3); MEAN CELL VOLUME 77.5 fL (81.0-99.0); MEAN CORPUSCULAR HEMOGLOBIN 24.4 pg (27.0-31.0); MEAN CORPUSCULAR HGB CONC 31.4 g/dL (33.0-37.0); MEAN PLATELET VOLUME 10.1 fL (7.2-11.7); MONO # 0.4 K/uL (0.0-0.8); MONO % 8.1 % (0.0-10.0); NEUT % 62.7 % (50.0-75.0); NRBC % 0.1 % (0.0-2.0); RBC 3.67 Mil/uL (3.80-5.20); RED CELL DISTRIBUTION WIDTH 18.3 % (11.5-14.5); WHITE BLOOD COUNT 4.9 K/uL (4.8-10.8)
[2016-12-01] MEDS ORDERED: Insulin Detemir 100 units/ml Vial (Levemir) SC SCH ×2 (07:30→22:00)
[2016-12-01] MEDS: (Novolog) Insulin Aspart, Recombinant 100 u/ml 10 ml vial SC SCH ×7 (08:07→21:58)
[2016-12-01] MEDS: Sucralfate 1 gm/10 ml Oral Susp UD PO SCH ×2 (08:10→16:21)
[2016-12-01 08:21] LABS: FERRITIN 45.1 ng/mL
[2016-12-01 08:51] LABS: FOLATE 15.7 ng/mL
[2016-12-01] MEDS: LIPASE/PROTEASE/AMYLASE 4,200 U ECC PO SCH ×3 (10:15→17:52)
--- NOTE | 2016-12-01 10:35 | CP.PCM.PN ---
Subjective - Date & Time of Evaluation Date of Evaluation: 12/01/16 Time of Evaluation: 10:05 - Subjective Subjective: Progress note dictated # [id number] Objective - Vital Signs/Intake and Output Vital Signs (last 24 hours): Temp Pulse Resp BP Pulse Ox 98.3 F 93 H 20 127/84 99 12/01/16 08:00 12/01/16 08:00 12/01/16 08:00 12/01/16 08:00 12/01/16 08:00 Intake and Output: 12/01/16 12/01/16 06:59 18:59 Intake Total 600 180 Balance 600 180 - Medications Medications: Current Medications Al Hydrox/Mg Hydrox/Simethicone (Maalox Plus 30 Ml) 30 ml PO Q8H [facility] Last Admin: 12/01/16 02:30 Dose: Not Given Albuterol (Ventolin Hfa 90 Mcg/Actuation (8 G)) 2 puff IH RQ6 PRN PRN Reason: SOB Docusate Sodium (Colace) 100 mg PO DAILY [facility] Last Admin: 12/01/16 10:15 Dose: 100 mg Ferrous Sulfate (Feosol) 325 mg PO TID [facility] Last Admin: 12/01/16 10:15 Dose: 325 mg Hydromorphone HCl (Dilaudid) 0.5 mg IVP Q6H PRN PRN Reason: Pain, moderate (4-7) Last Admin: 12/01/16 06:10 Dose: 0.5 mg Sodium Chloride (Sodium Chloride 0.45%) 1,000 mls @ 75 mls/hr IV .[id number] [facility] Last Admin: 12/01/16 01:24 Dose: Not Given Insulin Aspart (Novolog) 0 unit SC ACHS [facility] PRN Reason: Protocol Last Admin: 12/01/16 08:07 Dose: 3 unit Insulin Aspart (Novolog) 14 unit SC AC [facility] Last Admin: 12/01/16 08:07 Dose: 14 unit Insulin Detemir (Levemir) 24 unit SC HS [facility] Last Admin: 11/30/16 21:57 Dose: 24 unit Metoclopramide HCl (Reglan) 10 mg IVP DAILY [facility] Last Admin: 11/30/16 09:19 Dose: 10 mg Metoclopramide HCl (Reglan) 5 mg IVP Q6 [facility] Last Admin: 12/01/16 06:11 Dose: 5 mg Ondansetron HCl (Zofran Inj) 4 mg IVP Q8 PRN PRN Reason: Nausea/Vomiting Pantoprazole Sodium (Protonix Inj) 40 mg IVP Q12 [facility] Last Admin: 11/30/16 21:35 Dose: 40 mg Sucralfate (Carafate Oral Susp) 1 gm PO ACBD [facility] Last Admin: 12/01/16 08:10 Dose: 1 gm - Labs Labs: 12/01/16 07:14 11/30/16 06:38
[2016-12-01] MEDS: Ferric Sodium Gluconat Complex 62.5 mg/5 ml Vial IVPB SCH (11:35)
--- NOTE | 2016-12-01 15:34 | CP.PCM.CON ---
History of Present Illness - History of Present Illness History of Present Illness: 36 year old female with a history of alcohol abuse complicated by pancreatitis, DM s/p complicated by DKA recently discharged from [facility], admitted with burning epigatric pain, found to be anemic. The patient is s/p EGD which revealed a non bleeding gastric ulcer, esophagitis and gastritis. She denies abnormal bleeding and bruising. She does note her periods used to be heavy but have normalized. She denies fevers and chills. She has no weightloss. Past medical history: DM, alcohol abuse, pancreatitis. Past surgical history: Cholecystectomy Family history: Denies hematologic and oncologic problems Social history: Smokes 5 cigarettes daily, drinks a pint of vodka daily, denies illicit drug use. Allergies: Morphine, Shellfish Review of systems: All remaining review of systems including HEENT, cardiovascular, respiratory, gastrointestinal, genitourinary, musculoskeletal, dermatologic, neurologic, and psychiatric are negative unless mentioned in the HPI. Past Patient History - Infectious Disease Hx of Infectious Diseases: None - Past Medical History & Family History Past Medical History?: Yes - Past Social History Smoking Status: Light Smoker < 10 Cigarettes Daily - CARDIAC Hx Cardiac Disorders: No - PULMONARY Hx Respiratory Disorders: Yes Hx Asthma: Yes - NEUROLOGICAL Hx Neurological Disorder: Yes Hx Seizures: Yes - HEENT Hx HEENT Problems: No - RENAL Hx Chronic Kidney Disease: No - ENDOCRINE/METABOLIC Hx Endocrine Disorders: Yes Hx Diabetes Mellitus Type 1: Yes - HEMATOLOGICAL/ONCOLOGICAL Hx Blood Disorders: Yes Hx Anemia: Yes - INTEGUMENTARY Hx Dermatological Problems: No - MUSCULOSKELETAL/RHEUMATOLOGICAL Hx Musculoskeletal Disorders: Yes Hx Arthritis: Yes Hx Falls: No - GASTROINTESTINAL Hx Gastrointestinal Disorders: Yes Hx Gall Bladder Disease: Yes Hx Gastritis: Yes Hx Pancreatitis: Yes - GENITOURINARY/GYNECOLOGICAL Hx Genitourinary Disorders: No - PSYCHIATRIC Hx Psychophysiologic Disorder: Yes Hx Anxiety: Yes (NO MEDS AT PRESENT) Hx Depression: Yes (NO MEDS AT PRESENT) Hx Substance Use: No - SURGICAL HISTORY Hx Surgeries: Yes Hx Cholecystectomy: Yes - ANESTHESIA Hx Anesthesia: Yes Hx Anesthesia Reactions: No Hx Malignant Hyperthermia: No Has any member of the family had a problem w/ anesthesia?: No Meds Allergies/Adverse Reactions: Allergies Allergy/AdvReac Type Severity Reaction Status Date / Time morphine Allergy ANAPHYLAXIS Verified 11/28/16 15:56 shellfish derived Allergy ANAPHYLAXIS Verified 11/28/16 15:56 - Medications Medications: Current Medications Al Hydrox/Mg Hydrox/Simethicone (Maalox Plus 30 Ml) 30 ml PO Q8H [facility] Last Admin: 12/01/16 11:35 Dose: 30 ml Albuterol (Ventolin Hfa 90 Mcg/Actuation (8 G)) 2 puff IH RQ6 PRN PRN Reason: SOB Docusate Sodium (Colace) 100 mg PO DAILY [facility] Last Admin: 12/01/16 10:15 Dose: 100 mg Ferric Sodium Gluconate Complex (Ferrlecit) 125 mg IVPB DAILY [facility] Stop: 12/06/16 11:16 Last Admin: 12/01/16 11:35 Dose: 125 mg Ferrous Sulfate (Feosol) 325 mg PO TID [facility] Last Admin: 12/01/16 13:40 Dose: 325 mg Sodium Chloride (Sodium Chloride 0.45%) 1,000 mls @ 75 mls/hr IV .[id number] [facility] Last Admin: 12/01/16 01:24 Dose: Not Given Insulin Aspart (Novolog) 0 unit SC ACHS [facility] PRN Reason: Protocol Last Admin: 12/01/16 12:43 Dose: Not Given Insulin Aspart (Novolog) 14 unit SC AC [facility] Last Admin: 12/01/16 12:42 Dose: 14 unit Insulin Detemir (Levemir) 34 unit SC HS [facility] Metoclopramide HCl (Reglan) 10 mg IVP DAILY [facility] Last Admin: 12/01/16 11:35 Dose: 10 mg Metoclopramide HCl (Reglan) 5 mg IVP Q6 [facility] Last Admin: 12/01/16 11:52 Dose: Not Given Ondansetron HCl (Zofran Inj) 4 mg IVP Q8 PRN PRN Reason: Nausea/Vomiting Pantoprazole Sodium (Protonix Inj) 40 mg IVP Q12 [facility] Last Admin: 12/01/16 11:34 Dose: 40 mg Sucralfate (Carafate Oral Susp) 1 gm PO ACBD [facility] Last Admin: 12/01/16 08:10 Dose: 1 gm Physical Exam - Head Exam Head Exam: ATRAUMATIC - Eye Exam Eye Exam: Normal appearance - ENT Exam ENT Exam: Mucous Membranes Dry - Respiratory Exam Respiratory Exam: NORMAL BREATHING PATTERN - Cardiovascular Exam Cardiovascular Exam: +S1, +S2 - GI/Abdominal Exam GI & Abdominal Exam: Normal Bowel Sounds - Extremities Exam Extremities exam: Positive for: normal inspection - Neurological Exam Neurological exam: Oriented x3 - Psychiatric Exam Psychiatric exam: Normal Affect, Normal Mood - Skin Skin Exam: Warm Results - Vital Signs Recent Vital Signs: Last Vital Signs Temp 98.3 F 12/01/16 08:00 Pulse 93 H 12/01/16 08:00 Resp 20 12/01/16 08:00 BP 127/84 12/01/16 08:00 Pulse Ox 99 12/01/16 08:00 - Labs Result Diagrams: 12/01/16 07:14 11/30/16 06:38 Labs: Laboratory Results - last 24 hr 11/29/16 11/30/16 11/30/16 13:39 17:58 21:24 WBC RBC Hgb Hct MCV MCH MCHC RDW Plt Count MPV Neut % (Auto) Lymph % (Auto) Dent % (Auto) Eos % (Auto) Baso % (Auto) Neut # Lymph # Dent # Eos # Baso # Differential Comment Retic Count Hemoglobinopathy Red Blood Count 3.42 L Hemoglobinopathy Hct 27.3 L Hemoglobinopathy Hgb 8.3 L Hemoglobinopathy MCV 79.8 L Hemoglobinopathy MCH 24.3 L Hemoglobinopathy RDW 19.1 H POC Glucose (mg/dL) 421 H* 294 H Ferritin Vitamin B12 Folate Stool Occult Blood Blood Type Antibody Screen 11/30/16 12/01/16 12/01/16 23:00 07:14 07:14 WBC 4.9 RBC 3.67 L Hgb 8.9 L Hct 28.4 L MCV 77.5 L MCH 24.4 L MCHC 31.4 L RDW 18.3 H Plt Count 104 L MPV 10.1 Neut % (Auto) 62.7 Lymph % (Auto) 26.0 Dent % (Auto) 8.1 Eos % (Auto) 2.8 Baso % (Auto) 0.4 Neut # 3.0 Lymph # 1.3 Dent # 0.4 Eos # 0.1 Baso # 0.0 Differential Comment Retic Count Hemoglobinopathy Red Blood Count Hemoglobinopathy Hct Hemoglobinopathy Hgb Hemoglobinopathy MCV Hemoglobinopathy MCH Hemoglobinopathy RDW POC Glucose (mg/dL) Ferritin 45.1 Vitamin B12 540 Folate 15.7 Stool Occult Blood Negative Blood Type Antibody Screen 12/01/16 12/01/16 12/01/16 07:14 07:14 07:20 WBC RBC Hgb Hct MCV MCH MCHC RDW Plt Count MPV Neut % (Auto) Lymph % (Auto) Dent % (Auto) Eos % (Auto) Baso % (Auto) Neut # Lymph # Dent # Eos # Baso # Differential Comment Cancelled Retic Count 2.2 H Hemoglobinopathy Red Blood Count Hemoglobinopathy Hct Hemoglobinopathy Hgb Hemoglobinopathy MCV Hemoglobinopathy MCH Hemoglobinopathy RDW POC Glucose (mg/dL) 362 H Ferritin Vitamin B12 Folate Stool Occult Blood Blood Type A POSITIVE Antibody Screen Negative 12/01/16 10:36 WBC RBC Hgb Hct MCV MCH MCHC RDW Plt Count MPV Neut % (Auto) Lymph % (Auto) Dent % (Auto) Eos % (Auto) Baso % (Auto) Neut # Lymph # Dent # Eos # Baso # Differential Comment Retic Count Hemoglobinopathy Red Blood Count Hemoglobinopathy Hct Hemoglobinopathy Hgb Hemoglobinopathy MCV Hemoglobinopathy MCH Hemoglobinopathy RDW POC Glucose (mg/dL) 232 H Ferritin Vitamin B12 Folate Stool Occult Blood Blood Type Antibody Screen Assessment & Plan (1) Anemia Assessment and Plan: borderline iron stores; likely chronic blood loss EGD findings noted will give IV ferrlecit outpatient f/u of blood counts Thank you f Status: Acute (2) Thrombocytopenia Assessment and Plan: mild likely alcohol related Status: Acute (3) Leukopenia Assessment and Plan: mild, improved likely alcohol related Thank you for this interesting consult. Status: Acute
--- NOTE | 2016-12-01 15:58 | PN ---
LOCATION: [facility], Bed B. SUBJECTIVE: This is a 36-year-old female seen and examined in rounds without significant clinical changes, but intermittent periods of abdominal pain, receiving Dilaudid with relief. The entire chart is reviewed including, but not limited to most recent lab and radiologic study results, current and previous medication list, current and previous medical events. The patient still has low hemoglobin of 8.9, hematocrit 28.4 with low indices, highly suggestive of hypochromic microcytic anemia with low platelet count 104, with reticulocyte count elevated to 2.2. Blood glucose level is still elevated to 362 with normal B12 and normal folate level so far. PHYSICAL EXAMINATION: GENERAL: A 36-year-old female, afebrile, awake, alert, oriented. VITAL SIGNS: Pulse of 90, blood pressure 132/82, respiratory rate 18-20. HEENT: Showed pale dry oral mucous membrane. Nonicteric sclerae. LUNG: Few scattered crepitation. Decreased air entry at bases. HEART: Positive S1 and S2. ABDOMEN: Soft, bowel sounds are present. No masses or organomegaly. No rebound tenderness or guarding. Midepigastric tenderness was positive. RECTAL: Patient refused. EXTREMITIES: Without significant edema, clubbing or cyanosis. NEUROLOGIC: No reported new neurological deficits, sensory or motor. IMPRESSION: 1. Re-exacerbation of peptic ulcer disease, pathology results are still pending. 2. Known history of seizure disorder. 3. Poorly controlled diabetes mellitus with evidence of diabetic gastroparesis. 4. Status post cholecystectomy by history. 5. Hypochromic macrocytic anemia of unclear etiology, rule out lower gastrointestinal tract blood loss. 6. Known history of bronchial asthma. 7. Reported episodes of acute pancreatitis, which could be secondary to alcohol intake, by history. SUGGESTIONS: 1. I agree with your plan. 2. Abdominal ultrasound with attention to biliary tree and pancreas. 3. Pancreatic enzymes, p.o., Creon [id number] unit twice a day. 4. Further recommendations to follow. Xander Dominique MD
[2016-12-01] MEDS ORDERED: Potassium Chloride 20 mEq ER Tab PO STA (16:05)
--- NOTE | 2016-12-01 17:17 | CON ---
ENDOCRINOLOGY CONSULT DATE: ROOM: 361 HISTORY OF PRESENT ILLNESS: This is a 36-year-old female with known history of type 2 insulin-requiring diabetes, presenting here with diffuse abdominal pain, localized specifically to the epigastric area and apparently of progressive intensity, prompting an ER consult and subsequent admission. She has had multiple admissions for the same nature of abdominal pain and apparently is chemically dependent on narcotic analgesics, especially Dilaudid with an apparent allergy to morphine. In fact, in the emergency room, she was again begging for Dilaudid for pain relief as noted. PAST MEDICAL HISTORY: As mentioned above, history of type 2 insulin-requiring diabetes, on a combination of Levemir given as 20 units subcu b.i.d. with NovoLog given as 10 units subcu t.i.d. before meals and metformin 500 mg b.i.d.; history of hypertension; cardiovascular disease; dyslipidemia; history of chronic asthma with occasional admissions for asthmatic bronchitis; history of chronic recurrent pancreatitis related to underlying chronic alcoholism; history of chronic gastritis and apparent gastroparesis; history of seizure disorder, but is not on any kind of medications at this time; history of generalized anxiety and depression, but has been off psychotropic medications; also history of chronic anemia is noted. FAMILY HISTORY: Positive for diabetes and hypertension. SOCIAL HISTORY: Admits to chronic alcoholism, although denies any recent use of alcohol in the past week or so prior to admission. She denies any other substance abuse, however, admits to nicotine dependence also. REVIEW OF SYSTEMS: Admits to episodic bouts of dizziness and lightheadedness, worse on the day of admission, with occasional bifrontal headaches, easy fatigability and tiredness with suboptimal energy level. No chest pains or palpitations, but admits to occasional bouts of shortness of breath, especially with exertion. Her oral intake is variable with nausea, dyspepsia, vague upper abdominal pain, and supervening episodic bouts of vomiting prompting this admission. Also, admits to occasional precordial chest pain with shortness of breath, especially on exertion. Her oral intake is variable, with nausea, dyspepsia, and vague upper abdominal pain, again worse in the last 2 days prior to admission. Also, admits to persistent polyuria and nocturia and a about 5-pound or so weight loss. PHYSICAL EXAMINATION GENERAL: This is an obviously ill female in no apparent distress. VITAL SIGNS: Blood pressure 140/80, pulse of 70 beats per minute and regular, temperature 98, respirations 20. Height is 5 feet 8 inches and weight is 175 pounds. HEENT: Head normocephalic. Sclerae anicteric, with pink conjunctivae, and fundoscopy not possible at this time. Ears, nose, and throat are otherwise normal. NECK: Supple. Thyroid gland is normal sized. No carotid bruits or any cervical adenopathy ------. LUNGS: Scattered rhonchi. CARDIOPULMONARY: S1, S2 are rapid and regular. ABDOMEN: Flat, soft, with massive direct tenderness, but no evidence of rebound tenderness. Bowel sounds are present. LABORATORY DATA: The chemistry shows a BUN of 7, sodium 135, potassium 3.7, chloride 98, CO2 of 22, glucose 283, and creatinine 0.6. Glucose levels have ranged from 335 to 384 mg/dL. Her lipase level is less than 10. ASSESSMENT: This is a 36-year-old female with recent uncontrolled type 2 insulin-requiring diabetes presenting here with hyperglycemia accelerations related to poor suboptimal metabolic control of her diabetic condition, especially as an outpatient as noted. She also has chronic recurrent pancreatitis, presenting most significantly with diffuse epigastric and upper abdominal pain. Since she has some underlying dyslipidemia, this is clearly a secondary type 2 diabetes and is clearly insulin-requiring as noted. PLAN: As discussed with the patient and staff, we will intensify her glucose monitoring to at least done four times a day at a.c. and bedtime with minimal coverage with NovoLog insulin, only to be given above 300. ------ hyperglycemia and detailed orders have been given. As her oral intake improves and as she is advanced to solid foods following a GI workup at this time, then we will start her back on her basal and bolus insulin regimen as well. We will titrate ------. We will also modify the ------ hyperglycemia and details orders have been given. We will follow back. Marie De La Rosa MD
--- NOTE | 2016-12-01 23:37 | PN ---
DATE: 12/01/2016 SUBJECTIVE: The patient is seen and examined at bedside. The patient is feeling better; still complaining of epigastric pain. Requesting for more pain medication. Not able to tolerate p.o. Denies any other complaints. PHYSICAL EXAMINATION GENERAL: Young female lying in bed, in no acute distress. VITAL SIGNS: Blood pressure 127/84, pulse 93, respirations 20, temperature 98 and O2 sat 99% on room air. HEENT: Pupils equal, round and reactive to light and accommodation. Extraocular muscles intact. No icterus. Positive pallor. No oral thrush. No cranial contusion. NECK: Supple. No JVD. No thyromegaly. CHEST: Lungs are clear bilaterally on respiration. LUNGS: Bilaterally with clear breath sounds. No wheezing. No rhonchi. CARDIOVASCULAR: S1 and S2 present, regular. ABDOMEN: Soft. Bowel sounds present. Nontender. No guarding. No rigidity. No rebound tenderness noted. AUTO BODY MAN: Alert, awake, and oriented x3. No focal deficits noted. EXTREMITIES: No edema. Palpable peripheral pulses. LABORATORY DATA: WBC 4.9, hemoglobin 8.9, hematocrit 28.4 and platelets 104. Retic count 2.2. B12 is 540, folate 15.7, glucose 232, ferritin 45.1. Occult blood negative. Sickle cell screen negative. Hemoglobin electrophoresis pending. MEDICATIONS: Include Maalox 30 p.o. q.8 hours, albuterol, Colace 100 mg daily, Ferrlecit 125 mg IV daily, Feosol 325 mg p.o. t.i.d., insulin 14 units subq before meals and 34 units of Levemir subq at bedtime, Reglan 5 mg IV push q.6 hours, *------* Protonix 40 mg IV push q.12 hours, Carafate 1 g p.o. before meals twice a day. ASSESSMENT AND PLAN: *------* with chronic gastritis, acute gastritis, gastroparesis, uncontrolled diabetes mellitus, chronic pancreatitis, anemia, probably anemia of chronic disease and chronic blood loss. We will continue with current therapy. Hematology consult appreciated. The patient is started on IV Ferrlecit. We will continue with IV Ferrlecit and p.o. iron. We will advance diet as tolerated. We will continue with Carafate. We will hold Dilaudid. Continue with current insulin regimen. Follow up with gastroenterology. Abhishek Booth MD
--- NOTE | 2016-12-02 00:22 | PN ---
ENDOCRINOLOGY FOLLOWUP NOTE DATE: ROOM: 361 SUBJECTIVE: This is a 36-year-old female with recent uncontrolled type 2 insulin-requiring diabetes, now being followed closely for metabolic management. Her glycemic levels are fluctuating and today's glucose levels have ranged from 232 to 362 mg/dL. It was 2 nights before at bedtime. The latest chemistry showed a BUN of 2, sodium 135, potassium 3.5, chloride 100, CO2 of 26, glucose 141 and creatinine 0.6, so at this time, we will modify her basal and bolus insulin regimen and increase the Levemir of 34 units subcu at bedtime daily to start tonight. We will also increase the NovoLog to 14 units subcu t.i.d. before meals to start at dinner time today as ordered. We will continue the low-dose correction scale using NovoLog insulin as given. We will titrate incremental as indicated to optimize metabolic control. We will follow and advise accordingly. Marie De La Rosa MD
[2016-12-02] MEDS ORDERED: HYDROmorphone 0.5 mg/0.5 ml ISec IVP STA (01:05)
[2016-12-02] MEDS ORDERED: (Novolog) Insulin Aspart, Recombinant 100 u/ml 10 ml vial SC ONE (02:06)
[2016-12-02] MEDS: Alum-Mag Hydrox-Simethicone Susp (30 mL) PO SCH ×3 (02:32→18:13)
[2016-12-02] MEDS: Sodium Chloride 0.45% 1,000 ML IV SCH ×2 (03:35→18:13)
[2016-12-02] MEDS: LIPASE/PROTEASE/AMYLASE 4,200 U ECC PO SCH ×4 (08:00→18:08)
[2016-12-02] MEDS: Sucralfate 1 gm/10 ml Oral Susp UD PO SCH ×2 (08:11→18:13)
[2016-12-02] MEDS: (Novolog) Insulin Aspart, Recombinant 100 u/ml 10 ml vial SC SCH ×7 (08:12→22:38)
--- NOTE | 2016-12-02 10:33 | CP.PCM.PN ---
Subjective - Date & Time of Evaluation Date of Evaluation: 12/02/16 Time of Evaluation: 10:10 - Subjective Subjective: Progress note dictated #[id number] Objective - Vital Signs/Intake and Output Vital Signs (last 24 hours): Temp Pulse Resp BP Pulse Ox 98.5 F 86 20 119/70 100 12/02/16 07:26 12/02/16 07:26 12/02/16 07:26 12/02/16 07:26 12/02/16 07:26 Intake and Output: 12/02/16 12/02/16 06:59 18:59 Intake Total 360 Balance 360 - Medications Medications: Current Medications Al Hydrox/Mg Hydrox/Simethicone (Maalox Plus 30 Ml) 30 ml PO Q8H [facility] Last Admin: 12/02/16 02:32 Dose: Not Given Albuterol (Ventolin Hfa 90 Mcg/Actuation (8 G)) 2 puff IH RQ6 PRN PRN Reason: SOB Docusate Sodium (Colace) 100 mg PO DAILY [facility] Last Admin: 12/01/16 10:15 Dose: 100 mg Ferric Sodium Gluconate Complex (Ferrlecit) 125 mg IVPB DAILY [facility] Stop: 12/06/16 11:16 Last Admin: 12/01/16 11:35 Dose: 125 mg Ferrous Sulfate (Feosol) 325 mg PO TID [facility] Last Admin: 12/01/16 17:52 Dose: 325 mg Sodium Chloride (Sodium Chloride 0.45%) 1,000 mls @ 75 mls/hr IV .[id number] [facility] Last Admin: 12/02/16 03:35 Dose: Not Given Insulin Aspart (Novolog) 0 unit SC ACHS [facility] PRN Reason: Protocol Last Admin: 12/02/16 08:12 Dose: Not Given Insulin Aspart (Novolog) 14 unit SC AC [facility] Last Admin: 12/02/16 08:12 Dose: Not Given Insulin Detemir (Levemir) 34 unit SC HS [facility] Last Admin: 12/01/16 21:53 Dose: 34 unit Metoclopramide HCl (Reglan) 10 mg IVP DAILY [facility] Last Admin: 12/01/16 11:35 Dose: 10 mg Metoclopramide HCl (Reglan) 5 mg IVP Q6 [facility] Last Admin: 12/02/16 06:00 Dose: Not Given Ondansetron HCl (Zofran Inj) 4 mg IVP Q8 PRN PRN Reason: Nausea/Vomiting Pantoprazole Sodium (Protonix Inj) 40 mg IVP Q12 [facility] Last Admin: 12/01/16 21:52 Dose: 40 mg Sucralfate (Carafate Oral Susp) 1 gm PO ACBD [facility] Last Admin: 12/02/16 08:11 Dose: Not Given - Labs Labs: 12/01/16 07:14 11/30/16 06:38
[2016-12-02] MEDS: Ferric Sodium Gluconat Complex 62.5 mg/5 ml Vial IVPB SCH (11:45)
[2016-12-02] MEDS ORDERED: Tramadol 25 mg PO STA (20:06)
--- NOTE | 2016-12-02 20:55 | DS ---
DATE: 12/02/2016 Room 361 at [facility]. SUBJECTIVE: This is a 36-year-old female with recent uncontrolled type 2 insulin requiring diabetes, now being followed closely for metabolic management. She is also undergoing GI workup at this time for recurrent abdominal pain as noted. LABORATORY DATA: Her latest chemistry showed a BUN of 2, sodium 135, potassium 3.5, chloride 100, CO2 of 26, glucose 141, and creatinine 0.6. Her glucose levels have ranged from 294 to 362, 306, and 364 mg/dL. The fasting glucose this morning was 498 mg/dL. ASSESSMENT AND PLAN: So at this time, we will modify her basal and bolus insulin regimen and increase the Levemir to 40 units subcutaneous at bedtime daily and NovoLog to 16 units subcutaneous t.i.d. before meals as ordered. We will titrate incremental as indicated to optimize metabolic control. We will continue her low-dose correction scale using NovoLog insulin as given. We will repeat the chemistry and supplement accordingly as needed. We also reinforced diabetic education and dietary instructions at the time of this admission as noted. We will also consult with the psychology for behavioral therapies regarding her constant dependence on narcotic analgesics for pain relief. We will follow and advice accordingly. Marie De La Rosa MD
[2016-12-02] MEDS ORDERED: Insulin Detemir 100 units/ml Vial (Levemir) SC SCH (22:00)
[2016-12-03] MEDS: Alum-Mag Hydrox-Simethicone Susp (30 mL) PO SCH ×2 (02:30→11:25)
[2016-12-03] MEDS: Sodium Chloride 0.45% 1,000 ML IV SCH (06:30)
[2016-12-03 06:36] LABS: BASO % 0.7 % (0.0-2.0); EOS # 0.1 K/uL (0.0-0.7); EOS % 2.4 % (0.0-4.0); HEMOGLOBIN 9.8 g/dL (11.0-16.0); LYMPH # 2.1 K/uL (1.0-4.3); LYMPH % 38.7 % (20.0-40.0); MEAN CELL VOLUME 77.4 fL (81.0-99.0); MEAN CORPUSCULAR HEMOGLOBIN 24.6 pg (27.0-31.0); MEAN CORPUSCULAR HGB CONC 31.8 g/dL (33.0-37.0); MEAN PLATELET VOLUME 9.1 fL (7.2-11.7); MONO # 0.9 K/uL (0.0-0.8); MONO % 16.1 % (0.0-10.0); NEUT # 2.3 K/uL (1.8-7.0); NEUT % 42.1 % (50.0-75.0); NRBC % 0.1 % (0.0-2.0); RBC 3.98 Mil/uL (3.80-5.20); RED CELL DISTRIBUTION WIDTH 19.2 % (11.5-14.5); WHITE BLOOD COUNT 5.5 K/uL (4.8-10.8)
[2016-12-03 07:13] LABS: ALBUMIN 3.4 g/dL (3.5-5.0)
[2016-12-03 07:16] LABS: ALB/GLOB RATIO 1.4 (1.0-2.1); AST/SGOT 20 U/L (14-36); GFR AFRICAN-AMERICAN > 60; GFR NON-AFRICAN AMERICAN > 60
[2016-12-03 07:17] LABS: ALT/SGPT 29 U/L (9-52); BLOOD UREA NITROGEN 8 mg/dL (7-17); CALCIUM 8.7 mg/dl (8.6-10.4)
--- NOTE | 2016-12-03 08:17 | PN ---
DATE: 12/02/2016 SUBJECTIVE: Patient is seen and examined at bedside. Patient is still complaining of epigastric burning pain and not able to tolerate regular diet. Denies any other complaints. All other systems reviewed and were found to be negative. PHYSICAL EXAMINATION GENERAL: Young female lying in bed, in no acute distress. VITAL SIGNS: Blood pressure 137/97, pulse 115, respirations 20, temperature 98.7 degrees Fahrenheit, O2 sat 100% on room air. HEENT: Pupils equal and reacting to light and accommodation. Extraocular muscles intact. No icterus. Positive pallor. No oral thrush. No pharyngeal congestion. NECK: Supple. No JVD. LUNGS: Bilateral vesicular breath sounds. No wheezing. No rhonchi. CVS: S1 and S2 present, regular. ABDOMEN: Soft, nontender, bowel sounds present. No guarding. No rigidity. No rebound tenderness noted. ENERGY ECONOMIST: Alert, awake, oriented x 3. No focal deficits noted. EXTREMITIES: No edema. Palpable peripheral pulses. MEDICATIONS: Include Maalox, albuterol, Flexeril, Colace, Ferrlecit, Feosol, Levemir, Reglan, Protonix, IV fluids, Carafate. LABORATORY DATA: Her Accu-Cheks are high at 484, 498, 306, 364, 358. ASSESSMENT AND PLAN: A young female with history of diabetes mellitus, chronic pancreatitis, gastroparesis, acute gastritis on chronic gastritis, esophagitis status post EGD consistent with esophagitis, gastritis, with consistent symptoms and not able to tolerate p.o., anemia, on IV iron therapy, uncontrolled diabetes mellitus. Continue with current medications. We will follow up with GI. We will adjust her insulin regimen as her Accu-Cheks are high. If patient tolerates p.o. feeds, we will plan discharging the patient home in a.m. Abhishek Booth MD
[2016-12-03] MEDS: Sucralfate 1 gm/10 ml Oral Susp UD PO SCH (08:32)
[2016-12-03] MEDS: (Novolog) Insulin Aspart, Recombinant 100 u/ml 10 ml vial SC SCH ×3 (08:33→11:24)
[2016-12-03 08:54] VITALS: BP 120/82; PULSE 95; TEMP 98.8; O2SAT 99
[2016-12-03 10:34] LABS: HEMOGLOBIN A 87.5 Percent (>96.0); HEMOGLOBIN A2 3.8 Percent (1.8-3.5)
--- NOTE | 2016-12-03 11:14 | CP.PCM.PN ---
Subjective - Date & Time of Evaluation Date of Evaluation: 12/03/16 Objective - Vital Signs/Intake and Output Vital Signs (last 24 hours): Temp Pulse Resp BP Pulse Ox 98.8 F 95 H 20 120/82 99 12/03/16 08:53 12/03/16 08:53 12/03/16 08:53 12/03/16 08:53 12/03/16 08:53 Intake and Output: 12/03/16 12/03/16 06:59 18:59 Intake Total 400 Balance 400 - Medications Medications: Current Medications Al Hydrox/Mg Hydrox/Simethicone (Maalox Plus 30 Ml) 30 ml PO Q8H [facility] Last Admin: 12/03/16 02:30 Dose: Not Given Albuterol (Ventolin Hfa 90 Mcg/Actuation (8 G)) 2 puff IH RQ6 PRN PRN Reason: SOB Cyclobenzaprine HCl (Flexeril) 10 mg PO Q8 [facility] Stop: 12/05/16 14:01 Last Admin: 12/03/16 06:21 Dose: 10 mg Docusate Sodium (Colace) 100 mg PO DAILY [facility] Last Admin: 12/02/16 11:46 Dose: Not Given Ferric Sodium Gluconate Complex (Ferrlecit) 125 mg IVPB DAILY [facility] Stop: 12/06/16 11:16 Last Admin: 12/02/16 11:45 Dose: 125 mg Ferrous Sulfate (Feosol) 325 mg PO TID [facility] Last Admin: 12/02/16 17:58 Dose: 325 mg Sodium Chloride (Sodium Chloride 0.45%) 1,000 mls @ 75 mls/hr IV .[id number] [facility] Last Admin: 12/03/16 06:30 Dose: Not Given Insulin Aspart (Novolog) 0 unit SC ACHS [facility] PRN Reason: Protocol Last Admin: 12/03/16 08:34 Dose: 5 unit Insulin Aspart (Novolog) 16 unit SC AC [facility] Last Admin: 12/03/16 08:33 Dose: 16 unit Insulin Detemir (Levemir) 40 unit SC HS [facility] Last Admin: 12/02/16 22:10 Dose: Not Given Metoclopramide HCl (Reglan) 10 mg IVP DAILY [facility] Last Admin: 12/02/16 11:00 Dose: 10 mg Metoclopramide HCl (Reglan) 5 mg IVP Q6 [facility] Last Admin: 12/03/16 06:00 Dose: Not Given Ondansetron HCl (Zofran Inj) 4 mg IVP Q8 PRN PRN Reason: Nausea/Vomiting Pantoprazole Sodium (Protonix Inj) 40 mg IVP Q12 [facility] Last Admin: 12/02/16 22:38 Dose: Not Given Sucralfate (Carafate Oral Susp) 1 gm PO ACBD [facility] Last Admin: 12/03/16 08:32 Dose: Not Given - Labs Labs: 12/03/16 06:26 12/03/16 06:26
[2016-12-03] MEDS: LIPASE/PROTEASE/AMYLASE 4,200 U ECC PO SCH (11:27)
[2016-12-03] MEDS ORDERED: (Novolog) Insulin Aspart, Recombinant 100 u/ml 10 ml vial SC SCH (11:30)
[2016-12-03] MEDS: Ferric Sodium Gluconat Complex 62.5 mg/5 ml Vial IVPB SCH (11:34)
--- NOTE | 2016-12-03 14:47 | PN ---
ENDOCRINOLOGY FOLLOWUP NOTE Room 361, [facility]. SUBJECTIVE: This is a 36-year-old female with recent uncontrolled type 2 insulin-requiring diabetes, now with marked hyperglycemic acceleration overnight. On the report, her dietary regimen and is being followed closely for metabolic management. LABORATORY DATA: Her glycemic levels are fluctuating and today's glucose levels have ranged from 496 to over 500 mg/dL. It was 132 to 368 last night as noticed. The latest chemistry showed a BUN of 8, sodium of 130, potassium of 5.2, chloride of 91, CO2 of 28, glucose of 404, and creatinine of 0.7. ASSESSMENT AND PLAN: So, at this time, we will modify her basal and bolus insulin regimen and increase the Levemir to 50 units subcutaneously at bedtime daily to start tonight. We will also increase the NovoLog to 24 units subcutaneously t.i.d. before meals to start at lunch time today as ordered. We will continue the low-dose correction scale using NovoLog insulin as given. We will consult ____ nurse educator and storage garage manager for nutritional counseling especially for adherence to the meal portions and meal trays as given. We will follow and advise accordingly. Marie De La Rosa MD
[2016-12-03] MEDS ORDERED: Insulin Detemir 100 units/ml Vial (Levemir) SC SCH (22:00)
--- NOTE | 2016-12-04 13:59 | CARD ---
APPROVED REPORT EKG Measurement Heart [id number] <Conclusion> Normal sinus rhythm with sinus arrhythmia Normal ECG
== END 2016-12-03 01:30 | disposition left against medical advice (07) | DRG 182 ==
LOC: C.ER 15:44 → C.9E 18:56 → C.3T 20:38
PROVIDERS: ADMIT Internal Medicine; ATTEND Internal Medicine
PROC: 0DB68ZX Excision of Stomach, Via Natural or Artificial Opening Endoscopic, Diagnostic (ICD-10-PCS; principal; 2016-11-30 13:55)
DX: K29.00 Acute gastritis without bleeding (principal); E11.43 Type 2 diabetes mellitus with diabetic autonomic (poly)neuropathy; K31.84 Gastroparesis; K25.9 Gastric ulcer, unspecified as acute or chronic, without hemorrhage or perforation; D69.59 Other secondary thrombocytopenia; K86.0 Alcohol-induced chronic pancreatitis; E11.65 Type 2 diabetes mellitus with hyperglycemia; K86.1 Other chronic pancreatitis; I10 Essential (primary) hypertension; F10.20 Alcohol dependence, uncomplicated; D50.9 Iron deficiency anemia, unspecified; F17.210 Nicotine dependence, cigarettes, uncomplicated; G40.909 Epilepsy, unspecified, not intractable, without status epilepticus; I25.10 Atherosclerotic heart disease of native coronary artery without angina pectoris; J45.909 Unspecified asthma, uncomplicated; K21.0 Gastro-esophageal reflux disease with esophagitis; F41.8 Other specified anxiety disorders; M19.90 Unspecified osteoarthritis, unspecified site; Z79.4 Long term (current) use of insulin; Z90.49 Acquired absence of other specified parts of digestive tract

== ENCOUNTER 2017-09-08 22:48 | Inpatient (IN) | payer MEDICAID ==
[2017-09-08 22:49] VITALS: BMI 24.3
[2017-09-08] MEDS ORDERED: Sodium Chloride 0.9% 1,000 ML IV ONE (23:30)
[2017-09-08 23:53] LABS: BASO # 0.1 K/uL (0.0-0.2); BASO % 1.1 % (0.0-2.0); EOS % 0.2 % (0.0-4.0); HEMOGLOBIN 12.3 g/dL (11.0-16.0); LYMPH # 2.2 K/uL (1.0-4.3); LYMPH % 19.6 % (20.0-40.0); MEAN CELL VOLUME 77.2 fL (81.0-99.0); MEAN CORPUSCULAR HEMOGLOBIN 24.9 pg (27.0-31.0); MEAN CORPUSCULAR HGB CONC 32.2 g/dL (33.0-37.0); MEAN PLATELET VOLUME 8.9 fL (7.2-11.7); MONO # 0.5 K/uL (0.0-0.8); MONO % 4.3 % (0.0-10.0); NEUT # 8.4 K/uL (1.8-7.0); NEUT % 74.8 % (50.0-75.0); NRBC % 0.1 % (0.0-2.0); RBC 4.93 Mil/uL (3.80-5.20); RED CELL DISTRIBUTION WIDTH 18.1 % (11.5-14.5); WHITE BLOOD COUNT 11.3 K/uL (4.8-10.8)
[2017-09-09] MEDS ORDERED: Iohexol 350mg/ml 100 ML ONE (00:08)
[2017-09-09 00:48] LABS: ALB/GLOB RATIO 1.4 (1.0-2.1); ALBUMIN 4.7 g/dL (3.5-5.0); ALT/SGPT 23 U/L (9-52); AST/SGOT 40 U/L (14-36); BLOOD UREA NITROGEN 16 mg/dL (7-17); CALCIUM 9.2 mg/dl (8.6-10.4); GFR AFRICAN-AMERICAN > 60; GFR NON-AFRICAN AMERICAN > 60; LIPASE 31 U/L (23-300)
[2017-09-09 01:09] LABS: VENOUS BLOOD GAS BASE EXCESS -17.4 mmol/L (0.0-2.0); VENOUS BLOOD GAS PCO2 25 mmHg (40-60); VENOUS BLOOD GAS PO2 52 mm/Hg (30-55); VENOUS BLOOD PH 7.18 (7.32-7.43)
[2017-09-09] MEDS ORDERED: Sodium Chloride 0.9% 1,000 ML IV ONE (01:30)
[2017-09-09] MEDS ORDERED: Sodium Bicarbonate (8.4%) 50 Meq Syringe IVP ONE ×2 (01:30)
[2017-09-09 01:33] LABS: SQUAMOUS EPITHIAL 1 /hpf (0-5); URINE BILIRUBIN NEGATIVE (NEGATIVE); URINE BLOOD 1+ (NEGATIVE); URINE CLARITY Clear (Clear); URINE COLOR Yellow (YELLOW); URINE GLUCOSE (UA) 1+ mg/dL (Normal); URINE LEUKOCYTE ESTERASE NEG Leu/uL (Negative); URINE PROTEIN 1+ mg/dL (NEGATIVE); URINE UROBILINOGEN NORMAL mg/dL (0.2-1.0)
[2017-09-09] MEDS ORDERED: Sodium Chloride 0.9% 1,000 ML ONE (01:37)
[2017-09-09] MEDS ORDERED: Sodium Bicarbonate (8.4%) 50 Meq Syringe ONE (01:37)
--- NOTE | 2017-09-09 02:05 | C.PDOC ---
History Of Present Illness 37 year old female presents to the ER with a complaint of multiple episodes of vomiting and feeling nauseous for the past few days, associated with mild abdominal pain. Patient states the vomiting is nonbilious and nonbloody. Patient admits to drinking today and notes she did not take her insulin. Denies fever, chest pain, SOB, or cough. Time Seen by Provider: 09/08/17 23:29 Chief Complaint (Nursing): Abdominal Pain History Per: Patient History/Exam Limitations: no limitations Onset/Duration Of Symptoms: Days Current Symptoms Are (Timing): Still Present Radiation Of Pain To:: None Quality Of Discomfort: Unable To Describe Associated Symptoms: Nausea, Vomiting. denies: Fever, Chills, Other (Chest pain , SOB, cough) Exacerbating Factors: None Alleviating Factors: None Recent travel outside of the [place]: No Abnormal Vaginal Bleeding: No Past Medical History Reviewed: Historical Data, Nursing Documentation, Vital Signs Vital Signs: Last Vital Signs Temp 98.9 F 09/09/17 03:56 Pulse 108 H 09/09/17 03:56 Resp 15 09/09/17 03:56 BP 122/62 09/09/17 03:56 Pulse Ox 97 09/09/17 05:01 - Medical History PMH: Anemia, Anxiety (NO MEDS AT PRESENT), Arthritis, Asthma, Depression (NO MEDS AT PRESENT), Diabetes, Gastritis, Gastrointestinal Ulcer, Gall Bladder Disease, Pancreatitis, Seizures Surgical History: Cholecystectomy, Endoscopy - [facility] Procedures CLOSED ENDOSCOPIC BIOPSY OF LARGE INTESTINE (01/22/15) ESOPHAGOGASTRODUODENOSCOPY [EGD] W/CLOSED BIOPSY (01/24/15) EXCISION OF STOMACH, ENDO, DIAGN (11/28/16) Family History: States: Unknown Family Hx - Social History Hx Tobacco Use: Yes Hx Alcohol Use: Yes Hx Substance Use: No - Immunization History Hx Tetanus Toxoid Vaccination: Yes Hx Influenza Vaccination: No Hx Pneumococcal Vaccination: No Review Of Systems Constitutional: Negative for: Fever, Chills Cardiovascular: Negative for: Chest Pain Respiratory: Negative for: Cough, Shortness of Breath Gastrointestinal: Positive for: Nausea, Vomiting, Abdominal Pain Physical Exam - Physical Exam Appears: Non-toxic Skin: Normal Color, Warm, Dry Head: Atraumatic, Normacephalic Eye(s): bilateral: Normal Inspection Oral Mucosa: Dry Chest: Symmetrical, No Tenderness Cardiovascular: Rhythm Regular Respiratory: Normal Breath Sounds, No Rales, No Rhonchi, No Wheezing Gastrointestinal/Abdominal: Soft, Tenderness (mild diffuse), No Guarding, No Rebound Neurological/Psych: Oriented x3, Normal Speech ED Course And Treatment - Laboratory Results Result Diagrams: 09/08/17 23:49 09/09/17 03:37 O2 Sat by Pulse Oximetry: 97 (room air) Pulse Ox Interpretation: Normal Progress Note: Case discussed with skiing teacher, Dr. Ruff, who states patient does not require ICU but recommend slow bicarbonate drip with aggressive hydration. Patient is to be admitted to PMD Dr. Castro. Disposition - Disposition Disposition: HOSPITALIZED Disposition Time: 03:30 Condition: STABLE - Clinical Impression Clinical Impression: Alcoholic ketoacidosis - Scribe Statement The provider has reviewed the documentation as recorded by the Scribli Krishna All medical record entries made by the Scribe were at my direction and personally dictated by me. I have reviewed the chart and agree that the record accurately reflects my personal performance of the history, physical exam, medical decision making, and the department course for this patient. I have also personally directed, reviewed, and agree with the discharge instructions and disposition.
--- NOTE | 2017-09-09 02:15 | CT ---
EXAM: CT Abdomen and Pelvis With Intravenous Contrast CLINICAL HISTORY: 37 years old, female; Pain; Abdominal pain; Patient HX: 11-08-15 images sent; Additional info: Diffuse abdominal pain TECHNIQUE: Axial computed tomography images of the abdomen and pelvis with intravenous contrast. All CT scans at this facility use one or more dose reduction techniques, viz.: automated exposure control; ma/kV adjustment per patient size (including targeted exams where dose is matched to indication; i.e. head); or iterative reconstruction technique. Coronal and sagittal reformatted images were created and reviewed. CONTRAST: 100 mL of [id number] administered intravenously. COMPARISON: CT - ABD PELVIS W/O PO OR IV CONT 2015-11-08 10:09 FINDINGS: Lung bases: Unremarkable. No mass. No consolidation. ABDOMEN: Liver: There is a diffuse decrease in hepatic parenchymal density, consistent with fatty infiltration. Trace pneumobilia in the left hepatic lobe probably secondary to previous surgery. Gallbladder and bile ducts: There has been a cholecystectomy. No ductal dilation. Pancreas: There are punctate pancreatic parenchymal calcifications, consistent with chronic pancreatitis. No ductal dilation. Spleen: Unremarkable. No splenomegaly. Adrenals: Unremarkable. No mass. Kidneys and ureters: Unremarkable. No solid mass. No hydronephrosis. Stomach and bowel: Unremarkable. No obstruction. No mucosal thickening. PELVIS: Appendix: A normal appendix is identified. A normal appendix is identified. Bladder: Unremarkable. No mass. Reproductive: Low-density mass in the posterior uterus measuring 5.6 x 1.2 cm probably a fibroid. There is a tampon present. ABDOMEN and PELVIS: Intraperitoneal space: Unremarkable. No free air. No significant fluid collection. Bones/joints: No acute fracture. No dislocation. Soft tissues: Unremarkable. Vasculature: Unremarkable. No abdominal aortic aneurysm. Lymph nodes: Unremarkable. No enlarged lymph nodes. IMPRESSION: No acute findings. Fatty liver. Cholecystectomy. Trace left hepatic lobe pneumobilia probably secondary to prior surgery. Uterine fibroid.
[2017-09-09] MEDS ORDERED: Morphine 4 MG/ML VIAL IV STA (02:27)
[2017-09-09] MEDS ORDERED: Morphine 4 MG/ML VIAL ONE (02:33)
[2017-09-09 03:56] LABS: ALB/GLOB RATIO 1.4 (1.0-2.1); ALBUMIN 3.4 g/dL (3.5-5.0); ALT/SGPT 18 U/L (9-52); AST/SGOT 36 U/L (14-36); BLOOD UREA NITROGEN 14 mg/dL (7-17); GFR AFRICAN-AMERICAN > 60; GFR NON-AFRICAN AMERICAN > 60
[2017-09-09 04:03] LABS: VENOUS BLOOD GAS PCO2 23 mmHg (40-60); VENOUS BLOOD GAS PO2 49 mm/Hg (30-55); VENOUS BLOOD PH 7.23 (7.32-7.43)
[2017-09-09] MEDS ORDERED: Sodium Bicarbonate (8.4%) 50 Meq Syringe IV ONE (04:16)
[2017-09-09 07:36] VITALS: BP 121/67; PULSE 90; RESP 18; TEMP 98.1; O2SAT 98
[2017-09-09] MEDS ORDERED: Sodium Bicarbonate 8.4% 100 MEQ in Sodium Chloride 0.45% 900 ML IV SCH (09:45)
--- NOTE | 2017-09-09 23:36 | CP.PCM.HP ---
History of Present Illness - History of Present Illness History of Present Illness: CC: abdominal pain History Of Present Illness 37 year old female who is non complaint to medications, diet and chronic alcoholic with abusive habbits presents to the ER with a complaint of multiple episodes of vomiting and feeling nauseous for the past few days, associated with mild abdominal pain. Patient states the vomiting is nonbilious and nonbloody. Patient admits to drinking today and notes she did not take her insulin. Denies fever, chest pain, SOB, or cough.she denies any urinary complains Present on Admission - Present on Admission Any Indicators Present on Admission: Yes Review of Systems - Review of Systems Systems not reviewed;Unavailable: Acuity of Condition, Unstable Vital Signs - Constitutional Constitutional: Fatigue, Lethargy, Malaise - Cardiovascular Cardiovascular: Dyspnea - Respiratory Respiratory: absent: As Per HPI, Cough, Dyspnea, Hemoptysis, Dyspnea on Exertion , Wheezing, Snoring, Stridor, Pain on Inspiration, Chest Congestion, Excessive Mucous Production, Change in Mucous Color, Pain with Coughing, Other - Gastrointestinal Gastrointestinal: As Per HPI, Abdominal Pain, Nausea - Genitourinary Genitourinary: absent: As Per HPI, Change in Urinary Stream, Difficulty Urinating, Dysuria, Flank Pain, Hematuria, Pyuria, Nocturia, Urinary Incontinence, Urinary Frequency, Urinary Hesitance, Urinary Urgency, Voiding Freq/Small Amts, Freq UTI, Hx Renal/Bladder Calculi, Hx /Renal Surgery, Bladder Distension, Other - Reproductive: Female Reproductive:Female: absent: As Per HPI, Amenorrhea, Amenorrhea/ Control, Currently Menstual, Cycle <21 Days, Cycle >35 Days, Cycle Variable, Menses 1-7 Days, Menses >/= 8 Days, Menses Variable, Cycle > 4 Weeks Between, No Menses for 6 Months, Heavy Menses, Light Menses, Normal Menses, Spotting Between Cycles , S/P Hysterectomy, Menopausal, Post Menopausal, Premenarche, Abnormal Vaginal Bleeding, Dysmenorrhea, Dyspareunia, Genital Lesions, Genital Pruritis, Pelvic Pain, Prolapse Symptoms, Sexual Dysfunction, Vaginal Discharge, Vaginal Dryness , Vaginal Odor, Vaginal Pruritis, Other - Endocrine Endocrine: absent: As Per HPI, Change in Body Appearance, Change in Libido, Cold Intolorance, Deepening of Voice, Excessive Sweating, Fatigue, Flushing, Heat Intolorance, Increase in Ring/Shoe/Hat Size, Palpitations, Polydipsia, Polyphagia, Polyuria, Other Past Patient History - Infectious Disease Hx of Infectious Diseases: None - Past Medical History & Family History Past Medical History?: Yes - Past Social History Smoking Status: Light Smoker < 10 Cigarettes Daily - PULMONARY Hx Asthma: Yes - NEUROLOGICAL Hx Seizures: Yes - HEENT Hx HEENT Problems: No - RENAL Hx Chronic Kidney Disease: No - ENDOCRINE/METABOLIC Hx Endocrine Disorders: Yes Hx Diabetes Mellitus Type 1: Yes - HEMATOLOGICAL/ONCOLOGICAL Hx Anemia: Yes - INTEGUMENTARY Hx Dermatological Problems: No - MUSCULOSKELETAL/RHEUMATOLOGICAL Hx Arthritis: Yes - GASTROINTESTINAL Hx Gall Bladder Disease: Yes Hx Gastritis: Yes Hx Pancreatitis: Yes - GENITOURINARY/GYNECOLOGICAL Hx Genitourinary Disorders: No - PSYCHIATRIC Hx Anxiety: Yes (NO MEDS AT PRESENT) Hx Depression: Yes (NO MEDS AT PRESENT) Hx Substance Use: No - SURGICAL HISTORY Hx Cholecystectomy: Yes - ANESTHESIA Hx Anesthesia: Yes Hx Anesthesia Reactions: No Hx Malignant Hyperthermia: No Meds Allergies/Adverse Reactions: Allergies Allergy/AdvReac Type Severity Reaction Status Date / Time shellfish derived Allergy ANAPHYLAXIS Verified 09/08/17 23:21 Physical Exam - Constitutional Appears: Toxic, Confused - Head Exam Head Exam: ATRAUMATIC, NORMAL INSPECTION, NORMOCEPHALIC - Eye Exam Eye Exam: EOMI, Normal appearance, PERRL Pupil Exam: NORMAL ACCOMODATION, PERRL - Respiratory Exam Respiratory Exam: Clear to Auscultation Bilateral, NORMAL BREATHING PATTERN - Cardiovascular Exam Cardiovascular Exam: REGULAR RHYTHM - GI/Abdominal Exam GI & Abdominal Exam: Normal Bowel Sounds, Soft. absent: Tenderness - Rectal Exam Rectal Exam: Deferred Results - Vital Signs Recent Vital Signs: Last Vital Signs Temp 98.1 F 09/09/17 07:35 Pulse 90 09/09/17 07:35 Resp 18 09/09/17 07:35 BP 121/67 09/09/17 07:35 Pulse Ox 98 09/09/17 07:35 - Labs Result Diagrams: 09/08/17 23:49 09/09/17 03:37 Labs: Laboratory Results - last 24 hr 09/08/17 09/08/17 09/09/17 23:49 23:49 01:03 WBC 11.3 H D RBC 4.93 Hgb 12.3 D Hct 38.1 MCV 77.2 L MCH 24.9 L MCHC 32.2 L RDW 18.1 H Plt Count 264 MPV 8.9 Neut % (Auto) 74.8 Lymph % (Auto) 19.6 L [place] % (Auto) 4.3 Eos % (Auto) 0.2 Baso % (Auto) 1.1 Neut # (Auto) 8.4 H Lymph # (Auto) 2.2 [place] # (Auto) 0.5 Eos # (Auto) 0.0 Baso # (Auto) 0.1 pO2 52 VBG pH 7.18 L* VBG pCO2 25 L VBG HCO3 10.8 VBG Total CO2 10.1 L VBG O2 Sat (Calc) 82.3 H VBG Base Excess -17.4 L VBG Potassium 5.7 H Glucose 318 H Lactate 6.6 H* Crit Value Called To Mery rn Crit Value Called By Tiffany restaurant area director Crit Value Read Back Y Blood Gas Notified Time 108 Sodium 140 139.0 Potassium 6.1 H Chloride 102 102.0 Carbon Dioxide 8 L* D Anion Gap 35 H BUN 16 Creatinine 1.0 Est GFR ( Amer) > 60 Est GFR (Non-Af Amer) > 60 Random Glucose 290 H Calcium 9.2 Total Bilirubin 0.5 AST 40 H ALT 23 Alkaline Phosphatase 116 Total Protein 8.1 Albumin 4.7 Globulin 3.4 Albumin/Globulin Ratio 1.4 Lipase 31 Venous Blood Potassium 5.7 H Urine Color Urine Clarity Urine pH Ur Specific [place] Urine Protein Urine Glucose (UA) Urine Ketones Urine Blood Urine Nitrate Urine Bilirubin Urine Urobilinogen Ur Leukocyte Esterase Urine WBC (Auto) Urine RBC (Auto) Ur Squamous Epith Cells Hyaline Casts Alcohol, Quantitative 195 H Serum Ketones Small 09/09/17 09/09/17 09/09/17 01:26 03:37 03:55 WBC RBC Hgb Hct MCV MCH MCHC RDW Plt Count MPV Neut % (Auto) Lymph % (Auto) [place] % (Auto) Eos % (Auto) Baso % (Auto) Neut # (Auto) Lymph # (Auto) [place] # (Auto) Eos # (Auto) Baso # (Auto) pO2 49 VBG pH 7.23 L VBG pCO2 23 L VBG HCO3 11.9 VBG Total CO2 10.3 L VBG O2 Sat (Calc) 83.5 H VBG Base Excess -16.0 L VBG Potassium 4.9 Glucose 282 H Lactate 5.3 H* Crit Value Called To Karolyn pearson/rn Crit Value Called By Jose Daniel santizo/rt Crit Value Read Back Y Blood Gas Notified Time 405 Sodium 142 140.0 Potassium 5.0 Chloride 112 H 110.0 H Carbon Dioxide 9 L* Anion Gap 27 H BUN 14 Creatinine 0.8 Est GFR ( Amer) > 60 Est GFR (Non-Af Amer) > 60 Random Glucose 230 H Calcium 7.0 L Total Bilirubin 0.4 AST 36 ALT 18 Alkaline Phosphatase 81 Total Protein 5.9 L Albumin 3.4 L D Globulin 2.5 Albumin/Globulin Ratio 1.4 Lipase Venous Blood Potassium 4.9 Urine Color Yellow Urine Clarity Clear Urine pH 5.0 Ur Specific [place] 1.019 Urine Protein 1+ H Urine Glucose (UA) 1+ Urine Ketones 2+ H Urine Blood 1+ H Urine Nitrate Negative Urine Bilirubin Negative Urine Urobilinogen Normal Ur Leukocyte Esterase Neg Urine WBC (Auto) 1 Urine RBC (Auto) 1 Ur Squamous Epith Cells 1 Hyaline Casts 3-5 H Alcohol, Quantitative Serum Ketones Assessment & Plan (1) Abdominal pain Status: Acute (2) Alcohol intoxication Status: Acute (3) Anemia Status: Acute (4) Chronic pancreatitis due to acute alcohol intoxication Status: Acute
== END 2017-09-09 10:33 | disposition left against medical advice (07) | DRG 749 ==
LOC: C.ER 22:48 → C.5S 09-09 04:18
PROVIDERS: ADMIT Internal Medicine; ATTEND Internal Medicine
PROC: HZ2ZZZZ Detoxification Services for Substance Abuse Treatment (ICD-10-PCS; principal; 2017-09-09)
DX: F10.120 Alcohol abuse with intoxication, uncomplicated (principal); E87.2 Acidosis; K86.0 Alcohol-induced chronic pancreatitis; D64.9 Anemia, unspecified; J45.909 Unspecified asthma, uncomplicated; Z79.4 Long term (current) use of insulin; F17.210 Nicotine dependence, cigarettes, uncomplicated; E11.9 Type 2 diabetes mellitus without complications; Y90.6 Blood alcohol level of 120-199 mg/100 ml

== ENCOUNTER 2017-09-26 12:10 | Inpatient (IN) | payer MEDICAID ==
[2017-09-26 12:10] VITALS: BMI 24.3
[2017-09-26] MEDS ORDERED: Sodium Chloride 0.9% 1,000 ML IV STA ×2 (12:29→13:52)
[2017-09-26 12:46] LABS: BASO % 0.6 % (0.0-2.0); EOS % 1.1 % (0.0-4.0); HEMOGLOBIN 11.2 g/dL (11.0-16.0); LYMPH # 0.9 K/uL (1.0-4.3); MEAN CELL VOLUME 76.7 fL (81.0-99.0); MEAN CORPUSCULAR HEMOGLOBIN 25.2 pg (27.0-31.0); MEAN CORPUSCULAR HGB CONC 32.8 g/dL (33.0-37.0); MEAN PLATELET VOLUME 8.4 fL (7.2-11.7); MONO # 0.2 K/uL (0.0-0.8); MONO % 6.1 % (0.0-10.0); NEUT # 2.2 K/uL (1.8-7.0); NEUT % 66.2 % (50.0-75.0); NRBC % 0.2 % (0.0-2.0); RBC 4.46 Mil/uL (3.80-5.20); RED CELL DISTRIBUTION WIDTH 17.8 % (11.5-14.5)
[2017-09-26 12:52] LABS: VENOUS BLOOD GAS BASE EXCESS -13.1 mmol/L (0.0-2.0); VENOUS BLOOD GAS PCO2 29 mmHg (40-60); VENOUS BLOOD GAS PO2 37 mm/Hg (30-55); VENOUS BLOOD PH 7.25 (7.32-7.43)
[2017-09-26] MEDS ORDERED: Sodium Chloride 0.9% 1,000 ML ONE (12:53)
[2017-09-26 12:55] LABS: WHITE BLOOD COUNT 3.3 K/uL (4.8-10.8)
--- NOTE | 2017-09-26 13:05 | RAD ---
PROCEDURE: CHEST RADIOGRAPH, 1 VIEW HISTORY: Cough. Right side port. COMPARISON: Frontal chest radiograph 11/28/2016. FINDINGS: Right MediPort unchanged in position. LUNGS: Clear. PLEURA: No pneumothorax or pleural fluid seen. CARDIOVASCULAR: Normal. OSSEOUS STRUCTURES: No significant abnormalities. VISUALIZED UPPER ABDOMEN: Normal. OTHER FINDINGS: None. IMPRESSION: No interval acute cardiopulmonary disease appreciated.
[2017-09-26 13:23] LABS: ALB/GLOB RATIO 1.4 (1.0-2.1); ALBUMIN 4.5 g/dL (3.5-5.0); ALT/SGPT 35 U/L (9-52); AST/SGOT 39 U/L (14-36); BLOOD UREA NITROGEN 9 mg/dL (7-17); CALCIUM 9.1 mg/dl (8.6-10.4); GFR AFRICAN-AMERICAN > 60; GFR NON-AFRICAN AMERICAN > 60; LIPASE 16 U/L (23-300)
[2017-09-26] MEDS ORDERED: Insulin Human Regular 100 UNIT in Sodium Chloride 0.9% 99 ML IV STA ×2 (13:53→17:41)
[2017-09-26] MEDS ORDERED: Sodium Chloride 0.9% 1,000 ML IV ONE (14:00)
--- NOTE | 2017-09-26 14:05 | C.PDOC ---
History Of Present Illness Pt was seen here yesterday and diagnosed with DKA and she left AMA. She returns here today because she is not feeling better. Time Seen by Provider: 09/26/17 12:23 Chief Complaint (Nursing): Abdominal Pain History Per: Patient Onset/Duration Of Symptoms: Days Current Symptoms Are (Timing): Still Present Severity: Severe Location Of Pain/Discomfort: Epigastric Quality Of Discomfort: Unable To Describe Associated Symptoms: Nausea, Vomiting Alleviating Factors: None Additional History Per: Prior Records Past Medical History Reviewed: Historical Data, Nursing Documentation, Vital Signs Vital Signs: Last Vital Signs Temp 99.2 F 09/26/17 12:16 Pulse 103 H 09/26/17 12:16 Resp 18 09/26/17 12:16 BP 113/82 09/26/17 12:16 Pulse Ox 100 09/26/17 12:16 - Medical History PMH: Anemia, Anxiety, Arthritis, Asthma, Depression, Diabetes, Gastritis, Gastrointestinal Ulcer, Gall Bladder Disease, Pancreatitis, Seizures Surgical History: Cholecystectomy, Endoscopy - [facility] Procedures CLOSED ENDOSCOPIC BIOPSY OF LARGE INTESTINE (01/22/15) DETOXIFICATION SERVICES FOR SUBSTANCE ABUSE TREATMENT (09/09/17) ESOPHAGOGASTRODUODENOSCOPY [EGD] W/CLOSED BIOPSY (01/24/15) EXCISION OF STOMACH, ENDO, DIAGN (11/28/16) Family History: States: Unknown Family Hx - Social History Hx Tobacco Use: Yes Hx Alcohol Use: Yes Hx Substance Use: No - Immunization History Hx Tetanus Toxoid Vaccination: Yes Hx Influenza Vaccination: No Hx Pneumococcal Vaccination: No Review Of Systems Except As Marked, All Systems Reviewed And Found Negative. Constitutional: Positive for: Weakness, Malaise. Negative for: Fever Respiratory: Positive for: Cough. Negative for: Hemoptysis Gastrointestinal: Positive for: Nausea, Vomiting, Abdominal Pain Musculoskeletal: Negative for: Neck Pain Skin: Negative for: Rash Neurological: Negative for: Weakness, Numbness Physical Exam - Physical Exam Appears: In Acute Distress, Chronically Ill Skin: Normal Color, Warm, Dry Head: Atraumatic, Normacephalic Eye(s): bilateral: PERRL, EOMI Neck: Normal ROM, Supple Cardiovascular: Rhythm Regular Respiratory: Normal Breath Sounds, No Accessory Muscle Use Gastrointestinal/Abdominal: Soft, Tenderness (epigastric) Back: No CVA Tenderness Extremity: Normal ROM Neurological/Psych: Oriented x3, Normal Motor, Normal Sensation ED Course And Treatment - Laboratory Results Result Diagrams: 09/26/17 12:42 09/26/17 12:42 Lab Interpretation: Abnormal Interpretation Of Abnormal: Acidosis. hyperglycemia. Elevated ketones. O2 Sat by Pulse Oximetry: 100 Pulse Ox Interpretation: Normal - Radiology CXR: Viewed By Me, Read By Radiologist CXR Interpretation: Yes: No Acute Disease - Physician Consult Information Physician Contacted: Lyn Manuel (ICU) Outcome Of Conversation: He evaluated pt in the ED. Progress - Interventions Interventions:: Observation, Intravenous fluid - Medications Administered Intravenous: Antiemetic, Opiate - Data Reviewed Data Reviewed: Lab, Diagnostic imaging, Old records - Patient Status Patient status: Partially improved - Continuity of Care Discussed patient case with:: Patient, ED Nurse, PMD Discussed pt. case with production consultant/specialty: Pulmonary/Crit. Care - Patient Plan Patient Plan: Admission, ICU Disposition Discussed With : Ismael Castro Comment: He accepted pt on his service. Doctor Will See Patient In The: Hospital Counseled Patient/Family Regarding: Studies Performed, Diagnosis - Disposition Disposition: HOSPITALIZED Disposition Time: 14:08 Condition: SERIOUS - Clinical Impression Clinical Impression: DKA (diabetic ketoacidoses)
[2017-09-26] MEDS ORDERED: Morphine 4 MG/ML VIAL ONE (14:07)
--- NOTE | 2017-09-26 14:20 | CP.PCM.CON ---
History of Present Illness - History of Present Illness History of Present Illness: 37 y/o female with pmx of Diabetes, diabetic gastropathy, currently smoking ( puja 100) presents to [facility] with co abdominal pain. LMP 4 weeks ago , pain described as dull (similar to previous DKA), PAtient denies any exacerbating or relieving factor, no recent travel, no sick contact, (+)ETOH Review of Systems - Constitutional Constitutional: Malaise, Weakness. absent: Increased Appetite - Cardiovascular Cardiovascular: absent: Chest Pain, Chest Pain at Rest, Chest Pain with Activity , Syncope - Respiratory Respiratory: Cough. absent: Excessive Mucous Production - Gastrointestinal Gastrointestinal: Abdominal Pain, Vomiting. absent: Diarrhea, Hematemesis, Hematochezia, Loose Stools - Genitourinary Genitourinary: absent: Hematuria, Pyuria - Reproductive: Female Reproductive:Female: Normal Menses. absent: Currently Menstual, Dyspareunia, Pelvic Pain, Sexual Dysfunction - Endocrine Endocrine: Polydipsia, Polyuria Past Patient History - Infectious Disease Hx of Infectious Diseases: None - Past Medical History & Family History Past Medical History?: Yes - Past Social History Smoking Status: Light Smoker < 10 Cigarettes Daily - PULMONARY Hx Asthma: Yes - NEUROLOGICAL Hx Seizures: Yes - HEENT Hx HEENT Problems: No - RENAL Hx Chronic Kidney Disease: No - ENDOCRINE/METABOLIC Hx Endocrine Disorders: Yes Hx Diabetes Mellitus Type 1: Yes Other/Comment: Diabetic Ketoacidosis - 08/2017 - HEMATOLOGICAL/ONCOLOGICAL Hx Anemia: Yes - INTEGUMENTARY Hx Dermatological Problems: No - MUSCULOSKELETAL/RHEUMATOLOGICAL Hx Arthritis: Yes - GASTROINTESTINAL Hx Gall Bladder Disease: Yes Hx Gastritis: Yes Hx Pancreatitis: Yes - GENITOURINARY/GYNECOLOGICAL Hx Genitourinary Disorders: No - PSYCHIATRIC Hx Anxiety: Yes Hx Depression: Yes Hx Substance Use: No - SURGICAL HISTORY Hx Cholecystectomy: Yes - ANESTHESIA Hx Anesthesia: Yes Hx Anesthesia Reactions: No Hx Malignant Hyperthermia: No Meds Allergies/Adverse Reactions: Allergies Allergy/AdvReac Type Severity Reaction Status Date / Time shellfish derived Allergy ANAPHYLAXIS Verified 09/26/17 12:15 - Medications Medications: Current Medications Sodium Chloride (Sodium Chloride 0.9%) 1,000 mls @ 1,000 mls/hr IV .Q1H ONE Stop: 09/26/17 14:59 Insulin Human Regular 100 unit (/ Sodium Chloride) 100 mls @ 2 mls/hr IV .Q24H STA PRN Reason: Protocol Stop: 09/27/17 13:52 Sodium Chloride (Sodium Chloride 0.9%) 1,000 mls @ 1,000 mls/hr IV .Q1H STA Stop: 09/26/17 14:51 Insulin Detemir (Levemir) 20 unit SC BID ANUP Metoclopramide HCl (Reglan) 10 mg IVP ACHS ANUP Physical Exam - Head Exam Head Exam: ATRAUMATIC, NORMAL INSPECTION, NORMOCEPHALIC - Eye Exam Pupil Exam: NORMAL ACCOMODATION - ENT Exam ENT Exam: Mucous Membranes Moist - Respiratory Exam Respiratory Exam: Clear to Auscultation Bilateral, NORMAL BREATHING PATTERN. absent: Rhonchi, Wheezes, Respiratory Distress, Stridor - Cardiovascular Exam Cardiovascular Exam: REGULAR RHYTHM, +S1, +S2 - GI/Abdominal Exam GI & Abdominal Exam: Normal Bowel Sounds, Soft, Tenderness. absent: Rebound, Rigid - Extremities Exam Additional comments: dry skin Results - Vital Signs Recent Vital Signs: Last Vital Signs Temp 99.2 F 09/26/17 12:16 Pulse 103 H 09/26/17 12:16 Resp 18 09/26/17 12:16 BP 113/82 09/26/17 12:16 Pulse Ox 100 09/26/17 14:09 - Labs Result Diagrams: 09/26/17 12:42 09/26/17 12:42 Labs: Laboratory Results - last 24 hr 09/26/17 09/26/17 09/26/17 12:42 12:42 12:48 WBC 3.3 L D RBC 4.46 Hgb 11.2 Hct 34.2 MCV 76.7 L MCH 25.2 L MCHC 32.8 L RDW 17.8 H Plt Count 273 MPV 8.4 Neut % (Auto) 66.2 Lymph % (Auto) 26.0 [place] % (Auto) 6.1 Eos % (Auto) 1.1 Baso % (Auto) 0.6 Neut # (Auto) 2.2 Lymph # (Auto) 0.9 L [place] # (Auto) 0.2 Eos # (Auto) 0.0 Baso # (Auto) 0.0 pO2 37 VBG pH 7.25 L VBG pCO2 29 L VBG HCO3 13.7 VBG Total CO2 13.6 L VBG O2 Sat (Calc) 74.7 H VBG Base Excess -13.1 L VBG Potassium 4.1 Glucose 423 H* D Lactate 0.9 FiO2 21.0 Crit Value Called To Madelin Crit Value Called By Arley Crit Value Read Back Y Blood Gas Notified Time 1252 Sodium 133 130.0 L Potassium 4.3 Chloride 99 97.0 L Carbon Dioxide 11 L* D Anion Gap 28 H BUN 9 Creatinine 0.8 Est GFR ( Amer) > 60 Est GFR (Non-Af Amer) > 60 Random Glucose 386 H Calcium 9.1 Phosphorus 2.9 Magnesium 1.7 Total Bilirubin 1.0 AST 39 H ALT 35 Alkaline Phosphatase 103 Total Protein 7.6 Albumin 4.5 Globulin 3.1 Albumin/Globulin Ratio 1.4 Lipase 16 L Venous Blood Potassium 4.1 B-Hydroxybutyrate 5.73 H Assessment & Plan - Assessment and Plan (Free Text) Assessment: DKA: likely non-compliance, start insulin ggt and IVF NS, switch to D51/2NS at 125 ml/hr when BGM < 200, BGM q1hrs, CMP/mag/phos q6hrs -check HBA1c and lipids, utox, oxycodone -check BHCG -dvt ppx heparin sq -pud ppx protonix Patient states that she has has many DKA episodes with poor IV access for which she had a subQ portcath Patient remains hemodynamically stable. lactic, UA, utox pending - Date & Time Date: 09/26/17 Time: 14:00
[2017-09-26] MEDS ORDERED: Sodium Chloride 0.9% 2,000 ML ONE (14:22)
[2017-09-26 16:38] LABS: AMYLASE 68 U/L (30-110)
[2017-09-26] MEDS ORDERED: Morphine 4 MG/ML VIAL IV PRN ×2 (17:22→21:27)
[2017-09-26] MEDS ORDERED: Sodium Chloride 0.9% 1,000 ML IV SCH (17:30)
[2017-09-26] MEDS: Insulin Detemir 100 units/ml Vial (Levemir) SC SCH (18:04)
[2017-09-26] MEDS: Potassium Ch 20mEq in D5-1/2NS 1,000 ML IV SCH (18:14)
[2017-09-26 21:05] LABS: ALB/GLOB RATIO 1.2 (1.0-2.1); ALBUMIN 3.5 g/dL (3.5-5.0); ALT/SGPT 40 U/L (9-52); AST/SGOT 30 U/L (14-36); BLOOD UREA NITROGEN 7 mg/dL (7-17); CALCIUM 8.5 mg/dl (8.6-10.4); GFR AFRICAN-AMERICAN > 60; GFR NON-AFRICAN AMERICAN > 60
[2017-09-26] MEDS: Magnesium Sulfate 1 gm in D5W 1 GM/100 ML BAG IVPB SCH ×2 (21:42→22:26)
[2017-09-26] MEDS: Potassium Chloride 20 mEq/15 ml LIQ UD PO SCH (21:48)
[2017-09-26] MEDS ORDERED: Potassium Phosphate 15 MMOLE in Sodium Chloride 0.9% 250 ML IVPB ONE (22:00)
--- NOTE | 2017-09-27 00:01 | CP.PCM.HP ---
History of Present Illness - History of Present Illness History of Present Illness: CC:abdominal pain History of Present Illness: 37 y/o female with pmx of Diabetes, diabetic gastropathy, currently smoking ( puja 100) presents to [facility] with co abdominal pain. LMP 4 weeks ago , pain described as dull (similar to previous DKA), PAtient denies any exacerbating or relieving factor, no recent travel, no sick contact, (+)ETOH Present on Admission - Present on Admission Any Indicators Present on Admission: Yes Past Patient History - Infectious Disease Hx of Infectious Diseases: None - Past Medical History & Family History Past Medical History?: Yes - Past Social History Smoking Status: Light Smoker < 10 Cigarettes Daily - CARDIAC Hx Cardiac Disorders: No - PULMONARY Hx Respiratory Disorders: Yes Hx Asthma: Yes - NEUROLOGICAL Hx Neurological Disorder: Yes Hx Seizures: Yes - HEENT Hx HEENT Problems: No - RENAL Hx Chronic Kidney Disease: No - ENDOCRINE/METABOLIC Hx Endocrine Disorders: Yes Hx Diabetes Mellitus Type 1: Yes Other/Comment: Diabetic Ketoacidosis - 08/2017 - HEMATOLOGICAL/ONCOLOGICAL Hx Blood Disorders: Yes Hx Anemia: Yes - INTEGUMENTARY Hx Dermatological Problems: No - MUSCULOSKELETAL/RHEUMATOLOGICAL Hx Musculoskeletal Disorders: Yes Hx Arthritis: Yes Hx Falls: No - GASTROINTESTINAL Hx Gastrointestinal Disorders: Yes Hx Gall Bladder Disease: Yes Hx Gastritis: Yes Hx Pancreatitis: Yes - GENITOURINARY/GYNECOLOGICAL Hx Genitourinary Disorders: No - PSYCHIATRIC Hx Psychophysiologic Disorder: Yes Hx Anxiety: Yes Hx Depression: Yes Hx Substance Use: No - SURGICAL HISTORY Hx Surgeries: Yes Hx Cholecystectomy: Yes - ANESTHESIA Hx Anesthesia: Yes Hx Anesthesia Reactions: No Hx Malignant Hyperthermia: No Meds Allergies/Adverse Reactions: Allergies Allergy/AdvReac Type Severity Reaction Status Date / Time shellfish derived Allergy ANAPHYLAXIS Verified 09/26/17 12:15 Physical Exam - Constitutional Appears: Toxic, No Acute Distress - Eye Exam Eye Exam: EOMI, Normal appearance, PERRL Pupil Exam: NORMAL ACCOMODATION, PERRL - ENT Exam ENT Exam: Mucous Membranes Moist, Normal Exam - Neck Exam Neck exam: Positive for: Normal Inspection - Respiratory Exam Respiratory Exam: Clear to Auscultation Bilateral, NORMAL BREATHING PATTERN - Cardiovascular Exam Cardiovascular Exam: REGULAR RHYTHM - GI/Abdominal Exam GI & Abdominal Exam: Normal Bowel Sounds, Tenderness Results - Vital Signs Recent Vital Signs: Last Vital Signs Temp 98.1 F 09/26/17 20:00 Pulse 79 09/26/17 23:09 Resp 10 L 09/26/17 23:09 BP 121/71 09/26/17 23:09 Pulse Ox 98 09/26/17 22:09 - Labs Result Diagrams: 09/27/17 06:14 09/27/17 10:50 Labs: Laboratory Results - last 24 hr 09/26/17 09/26/17 09/26/17 12:42 12:42 12:48 WBC 3.3 L D RBC 4.46 Hgb 11.2 Hct 34.2 MCV 76.7 L MCH 25.2 L MCHC 32.8 L RDW 17.8 H Plt Count 273 MPV 8.4 Neut % (Auto) 66.2 Lymph % (Auto) 26.0 [place] % (Auto) 6.1 Eos % (Auto) 1.1 Baso % (Auto) 0.6 Neut # (Auto) 2.2 Lymph # (Auto) 0.9 L [place] # (Auto) 0.2 Eos # (Auto) 0.0 Baso # (Auto) 0.0 pO2 37 VBG pH 7.25 L VBG pCO2 29 L VBG HCO3 13.7 VBG Total CO2 13.6 L VBG O2 Sat (Calc) 74.7 H VBG Base Excess -13.1 L VBG Potassium 4.1 Glucose 423 H* D Lactate 0.9 FiO2 21.0 Crit Value Called To Madelin Crit Value Called By Arley Crit Value Read Back Y Blood Gas Notified Time 1252 Sodium 133 130.0 L Potassium 4.3 Chloride 99 97.0 L Carbon Dioxide 11 L* D Anion Gap 28 H BUN 9 Creatinine 0.8 Est GFR ( Amer) > 60 Est GFR (Non-Af Amer) > 60 POC Glucose (mg/dL) Random Glucose 386 H Calcium 9.1 Phosphorus 2.9 Magnesium 1.7 Total Bilirubin 1.0 AST 39 H ALT 35 Alkaline Phosphatase 103 Total Protein 7.6 Albumin 4.5 Globulin 3.1 Albumin/Globulin Ratio 1.4 Amylase 68 Lipase 16 L Beta HCG, Quant < 2.39 Venous Blood Potassium 4.1 B-Hydroxybutyrate 5.73 H 09/26/17 09/26/17 09/26/17 14:39 15:48 17:08 WBC RBC Hgb Hct MCV MCH MCHC RDW Plt Count MPV Neut % (Auto) Lymph % (Auto) [place] % (Auto) Eos % (Auto) Baso % (Auto) Neut # (Auto) Lymph # (Auto) [place] # (Auto) Eos # (Auto) Baso # (Auto) pO2 VBG pH VBG pCO2 VBG HCO3 VBG Total CO2 VBG O2 Sat (Calc) VBG Base Excess VBG Potassium Glucose Lactate FiO2 Crit Value Called To Crit Value Called By Crit Value Read Back Blood Gas Notified Time Sodium Potassium Chloride Carbon Dioxide Anion Gap BUN Creatinine Est GFR ( Amer) Est GFR (Non-Af Amer) POC Glucose (mg/dL) 326 H 282 H 289 H Random Glucose Calcium Phosphorus Magnesium Total Bilirubin AST ALT Alkaline Phosphatase Total Protein Albumin Globulin Albumin/Globulin Ratio Amylase Lipase Beta HCG, Quant Venous Blood Potassium B-Hydroxybutyrate 09/26/17 09/26/17 09/26/17 18:02 19:01 19:58 WBC RBC Hgb Hct MCV MCH MCHC RDW Plt Count MPV Neut % (Auto) Lymph % (Auto) [place] % (Auto) Eos % (Auto) Baso % (Auto) Neut # (Auto) Lymph # (Auto) [place] # (Auto) Eos # (Auto) Baso # (Auto) pO2 VBG pH VBG pCO2 VBG HCO3 VBG Total CO2 VBG O2 Sat (Calc) VBG Base Excess VBG Potassium Glucose Lactate FiO2 Crit Value Called To Crit Value Called By Crit Value Read Back Blood Gas Notified Time Sodium Potassium Chloride Carbon Dioxide Anion Gap BUN Creatinine Est GFR ( Amer) Est GFR (Non-Af Amer) POC Glucose (mg/dL) 240 H 219 H 199 H Random Glucose Calcium Phosphorus Magnesium Total Bilirubin AST ALT Alkaline Phosphatase Total Protein Albumin Globulin Albumin/Globulin Ratio Amylase Lipase Beta HCG, Quant Venous Blood Potassium B-Hydroxybutyrate 09/26/17 09/26/17 09/26/17 20:38 20:57 21:57 WBC RBC Hgb Hct MCV MCH MCHC RDW Plt Count MPV Neut % (Auto) Lymph % (Auto) [place] % (Auto) Eos % (Auto) Baso % (Auto) Neut # (Auto) Lymph # (Auto) [place] # (Auto) Eos # (Auto) Baso # (Auto) pO2 VBG pH VBG pCO2 VBG HCO3 VBG Total CO2 VBG O2 Sat (Calc) VBG Base Excess VBG Potassium Glucose Lactate FiO2 Crit Value Called To Crit Value Called By Crit Value Read Back Blood Gas Notified Time Sodium 135 Potassium 3.3 L Chloride 105 Carbon Dioxide 16 L Anion Gap 17 BUN 7 Creatinine 0.6 L Est GFR ( Amer) > 60 Est GFR (Non-Af Amer) > 60 POC Glucose (mg/dL) 155 H 151 H Random Glucose 181 H Calcium 8.5 L Phosphorus 1.6 L Magnesium 1.6 Total Bilirubin 1.2 AST 30 ALT 40 Alkaline Phosphatase 85 Total Protein 6.3 Albumin 3.5 D Globulin 2.9 Albumin/Globulin Ratio 1.2 Amylase Lipase Beta HCG, Quant Venous Blood Potassium B-Hydroxybutyrate 1.36 H 09/26/17 23:04 WBC RBC Hgb Hct MCV MCH MCHC RDW Plt Count MPV Neut % (Auto) Lymph % (Auto) [place] % (Auto) Eos % (Auto) Baso % (Auto) Neut # (Auto) Lymph # (Auto) [place] # (Auto) Eos # (Auto) Baso # (Auto) pO2 VBG pH VBG pCO2 VBG HCO3 VBG Total CO2 VBG O2 Sat (Calc) VBG Base Excess VBG Potassium Glucose Lactate FiO2 Crit Value Called To Crit Value Called By Crit Value Read Back Blood Gas Notified Time Sodium Potassium Chloride Carbon Dioxide Anion Gap BUN Creatinine Est GFR ( Amer) Est GFR (Non-Af Amer) POC Glucose (mg/dL) 158 H Random Glucose Calcium Phosphorus Magnesium Total Bilirubin AST ALT Alkaline Phosphatase Total Protein Albumin Globulin Albumin/Globulin Ratio Amylase Lipase Beta HCG, Quant Venous Blood Potassium B-Hydroxybutyrate Assessment & Plan (1) Abdominal pain Status: Acute (2) Alcohol intoxication Status: Acute (3) Chronic pancreatitis due to acute alcohol intoxication Status: Acute (4) DKA (diabetic ketoacidoses) Assessment and Plan: DKA: likely non-compliance, start insulin ggt and IVF NS, switch to D51/2NS at 125 ml/hr when BGM < 200, BGM q1hrs, CMP/mag/phos q6hrs -check HBA1c and lipids, utox, oxycodone -check BHCG -dvt ppx heparin sq -pud ppx protonix Patient states that she has has many DKA episodes with poor IV access for which she had a subQ portcath Patient remains hemodynamically stable. lactic, UA, utox pending Status: Acute
[2017-09-27 00:15] VITALS: O2SAT 100
[2017-09-27] MEDS: Potassium Chloride 20 mEq/15 ml LIQ UD PO SCH (00:16)
[2017-09-27 03:02] LABS: ALB/GLOB RATIO 1.3 (1.0-2.1); ALBUMIN 3.7 g/dL (3.5-5.0); ALT/SGPT 31 U/L (9-52); AST/SGOT 31 U/L (14-36); BLOOD UREA NITROGEN 5 mg/dL (7-17); CALCIUM 8.3 mg/dl (8.6-10.4); GFR AFRICAN-AMERICAN > 60; GFR NON-AFRICAN AMERICAN > 60
[2017-09-27] MEDS ORDERED: Sodium Phosphate 15 MMOLE in Dextrose 5% In Water 250 ML IV SCH (03:45)
[2017-09-27] MEDS: Potassium Ch 20mEq in D5-1/2NS 1,000 ML IV SCH (04:39)
[2017-09-27 06:20] LABS: BASO % 0.4 % (0.0-2.0); EOS % 0.7 % (0.0-4.0); HEMOGLOBIN 10.1 g/dL (11.0-16.0); MEAN CELL VOLUME 75.8 fL (81.0-99.0); MEAN CORPUSCULAR HEMOGLOBIN 24.9 pg (27.0-31.0); MEAN CORPUSCULAR HGB CONC 32.8 g/dL (33.0-37.0); MEAN PLATELET VOLUME 8.6 fL (7.2-11.7); MONO # 0.2 K/uL (0.0-0.8); MONO % 5.2 % (0.0-10.0); NEUT # 2.9 K/uL (1.8-7.0); NEUT % 69.7 % (50.0-75.0); NRBC % 0.2 % (0.0-2.0); RBC 4.06 Mil/uL (3.80-5.20); RED CELL DISTRIBUTION WIDTH 17.8 % (11.5-14.5); WHITE BLOOD COUNT 4.2 K/uL (4.8-10.8)
[2017-09-27 06:41] LABS: ALB/GLOB RATIO 1.3 (1.0-2.1); ALBUMIN 3.5 g/dL (3.5-5.0); ALT/SGPT 33 U/L (9-52); AST/SGOT 29 U/L (14-36); BLOOD UREA NITROGEN 5 mg/dL (7-17); CALCIUM 8.1 mg/dl (8.6-10.4); GFR AFRICAN-AMERICAN > 60; GFR NON-AFRICAN AMERICAN > 60
[2017-09-27] MEDS: (Novolog) Insulin Aspart, Recombinant 100 u/ml 10 ml vial SC SCH ×2 (07:40→11:52)
[2017-09-27 08:21] VITALS: TEMP 98.3
[2017-09-27] MEDS: Insulin Detemir 100 units/ml Vial (Levemir) SC SCH (09:37)
[2017-09-27 11:19] LABS: BLOOD UREA NITROGEN 4 mg/dL (7-17); CALCIUM 9.3 mg/dl (8.6-10.4); GFR AFRICAN-AMERICAN > 60; GFR NON-AFRICAN AMERICAN > 60
[2017-09-27 12:14] VITALS: BP 136/82; PULSE 120; RESP 14
--- NOTE | 2017-09-27 12:25 | CP.CCUPN ---
CCU Subjective - Physician Review Events Since Last Encounter (Free Text): 09/27/17 12:23 Patient is a 37-year-old female admitted to the hospital with acute DKA, secondary to noncompliance with insulin. Patient visit ID fluid, insulin drip, currently that anion gap improved Patient is feeling better, tolerating the oral feeding CCU Objective - Vital Signs / Intake & Output Vital Signs (Last 4 hours): Vital Signs Temp Pulse Resp BP Pulse Ox 09/27/17 12:11 136/82 09/27/17 12:05 120 H 14 09/27/17 12:00 82 8 L 09/27/17 11:59 98.3 F 09/27/17 11:00 84 11 L 09/27/17 10:09 82 12 113/71 09/27/17 10:00 83 12 100 09/27/17 09:09 93 H 19 124/78 100 09/27/17 09:00 99 H 11 L 100 Intake and Output (Last 8hrs): Intake & Output 09/26/17 09/27/17 09/27/17 22:59 06:59 14:59 Intake Total 406 1156 1590 Output Total 0 Balance 406 1156 1590 Weight 160 lb 4.8 oz Intake: Intake, IV Amount 406 1156 750 Right Chest Port-A-Cath, 6 4 Distal Port Right Chest Port-A-Cath, 352 150 Medial Port Right Port-A-Cath 400 800 600 Oral 0 0 840 Output: Oral Regurgitation 0 Other: # Voids Urine, Voided 1 1 0 # Bowel Movements 0 0 - Physical Exam Narrative Physical Exam (Free Text): 09/27/17 12:24 Patient clinically improving. Chest good air entry the left costal nontender abdomen - Medications Active Medications: Active Medications Generic Name Dose Route Start Last Admin Trade Name Freq PRN Reason Stop Dose Admin Famotidine 20 mg 09/27/17 10:00 09/27/17 09:37 Pepcid PO 20 mg DAILY ANUP Administration Gabapentin 300 mg 09/27/17 14:00 Neurontin PO TID ANUP Heparin Sodium (Porcine) 5,000 units 09/26/17 22:00 09/27/17 06:11 Heparin SC 5,000 units Q8 ANUP Administration Home Med 1 ecc 09/27/17 11:00 Lipase/Protease/Amylase [Creon Dr 36,000 Units Capsule] PO DAILY ANUP Potassium Chloride/Dextrose/Sod Cl 1,000 mls @ 100 mls/hr 09/26/17 18:15 04:39 Potassium Chl 20 Meq In D5-1/2ns IV 100 mls/hr .Q10H ANUP Administration Sodium Phosphate 15 mmole/ 255 mls @ 50 mls/hr 09/27/17 03:45 09/27/17 04:39 Dextrose IV 09/27/17 13:44 50 mls/hr .Q5H6M ANUP Administration Insulin Aspart 9 unit 09/27/17 07:30 09/27/17 11:52 Novolog SC 9 unit ACTID ANUP Administration Insulin Detemir 30 unit 09/27/17 22:00 Levemir SC HS [facility] - Patient Studies Lab Studies: Lab Studies 09/27/17 09/27/17 09/27/17 Range/Units 11:13 10:50 07:19 WBC (4.8-10.8) K/uL RBC (3.80-5.20) Mil/uL Hgb (11.0-16.0) g/dL Hct (34.0-47.0) % MCV (81.0-99.0) fL MCH (27.0-31.0) pg MCHC (33.0-37.0) g/dL RDW (11.5-14.5) % Plt Count (130-400) K/uL MPV (7.2-11.7) fL Neut % (Auto) (50.0-75.0) % Lymph % (Auto) (20.0-40.0) % Bucks % (Auto) (0.0-10.0) % Eos % (Auto) (0.0-4.0) % Baso % (Auto) (0.0-2.0) % Neut # (Auto) (1.8-7.0) K/uL Lymph # (Auto) (1.0-4.3) K/uL Bucks # (Auto) (0.0-0.8) K/uL Eos # (Auto) (0.0-0.7) K/uL Baso # (Auto) (0.0-0.2) K/uL pO2 (30-55) mm/Hg VBG pH (7.32-7.43) VBG pCO2 (40-60) mmHg VBG HCO3 mmol/L VBG Total CO2 (22-28) mmol/L VBG O2 Sat (Calc) (40-65) % VBG Base Excess (0.0-2.0) mmol/L VBG Potassium (3.6-5.2) mmol/L Glucose (65-105) mg/dl Lactate (0.7-2.1) mmol/L FiO2 % Crit Value Called To Crit Value Called By Crit Value Read Back Blood Gas Notified Time Sodium 136 (132-148) mmol/L Potassium 4.1 (3.6-5.2) mmol/L Chloride 104 (98-107) mmol/L Carbon Dioxide 20 L (22-30) mmol/L Anion Gap 16 (10-20) BUN 4 L (7-17) mg/dL Creatinine 0.6 L (0.7-1.2) mg/dL Est GFR ( Amer) > 60 Est GFR (Non-Af Amer) > 60 POC Glucose (mg/dL) 154 H 214 H (65-110) mg/dL Random Glucose 150 H (65-105) mg/dL Hemoglobin A1c (4.2-6.5) % Calcium 9.3 (8.6-10.4) mg/dl Phosphorus (2.5-4.5) mg/dL Magnesium (1.6-2.3) mg/dL Total Bilirubin (0.2-1.3) mg/dL AST (14-36) U/L ALT (9-52) U/L Alkaline Phosphatase (38-126) U/L Total Protein (6.3-8.3) g/dL Albumin (3.5-5.0) g/dL Globulin (2.2-3.9) gm/dL Albumin/Globulin Ratio (1.0-2.1) Amylase (30-110) U/L Lipase (23-300) U/L Beta HCG, Quant mIU/ML Venous Blood Potassium (3.6-5.2) mmol/L B-Hydroxybutyrate (0.02-0.27) mM 09/27/17 09/27/17 09/27/17 Range/Units 06:14 06:14 06:14 WBC 4.2 L (4.8-10.8) K/uL RBC 4.06 (3.80-5.20) Mil/uL Hgb 10.1 L (11.0-16.0) g/dL Hct 30.8 L (34.0-47.0) % MCV 75.8 L (81.0-99.0) fL MCH 24.9 L (27.0-31.0) pg MCHC 32.8 L (33.0-37.0) g/dL RDW 17.8 H (11.5-14.5) % Plt Count 264 (130-400) K/uL MPV 8.6 (7.2-11.7) fL Neut % (Auto) 69.7 (50.0-75.0) % Lymph % (Auto) 24.0 (20.0-40.0) % Bucks % (Auto) 5.2 (0.0-10.0) % Eos % (Auto) 0.7 (0.0-4.0) % Baso % (Auto) 0.4 (0.0-2.0) % Neut # (Auto) 2.9 (1.8-7.0) K/uL Lymph # (Auto) 1.0 (1.0-4.3) K/uL Bucks # (Auto) 0.2 (0.0-0.8) K/uL Eos # (Auto) 0.0 (0.0-0.7) K/uL Baso # (Auto) 0.0 (0.0-0.2) K/uL pO2 (30-55) mm/Hg VBG pH (7.32-7.43) VBG pCO2 (40-60) mmHg VBG HCO3 mmol/L VBG Total CO2 (22-28) mmol/L VBG O2 Sat (Calc) (40-65) % VBG Base Excess (0.0-2.0) mmol/L VBG Potassium (3.6-5.2) mmol/L Glucose (65-105) mg/dl Lactate (0.7-2.1) mmol/L FiO2 % Crit Value Called To Crit Value Called By Crit Value Read Back Blood Gas Notified Time Sodium 134 (132-148) mmol/L Potassium 4.4 (3.6-5.2) mmol/L Chloride 106 (98-107) mmol/L Carbon Dioxide 17 L (22-30) mmol/L Anion Gap 16 (10-20) BUN 5 L (7-17) mg/dL Creatinine 0.5 L (0.7-1.2) mg/dL Est GFR ( Amer) > 60 Est GFR (Non-Af Amer) > 60 POC Glucose (mg/dL) (65-110) mg/dL Random Glucose 133 H (65-105) mg/dL Hemoglobin A1c 10.3 H (4.2-6.5) % Calcium 8.1 L (8.6-10.4) mg/dl Phosphorus 2.9 (2.5-4.5) mg/dL Magnesium 1.9 (1.6-2.3) mg/dL Total Bilirubin 0.7 (0.2-1.3) mg/dL AST 29 (14-36) U/L ALT 33 (9-52) U/L Alkaline Phosphatase 80 (38-126) U/L Total Protein 6.2 L (6.3-8.3) g/dL Albumin 3.5 (3.5-5.0) g/dL Globulin 2.7 (2.2-3.9) gm/dL Albumin/Globulin Ratio 1.3 (1.0-2.1) Amylase (30-110) U/L Lipase (23-300) U/L Beta HCG, Quant mIU/ML Venous Blood Potassium (3.6-5.2) mmol/L B-Hydroxybutyrate (0.02-0.27) mM 09/27/17 09/27/17 09/27/17 Range/Units 06:08 05:24 04:09 WBC (4.8-10.8) K/uL RBC (3.80-5.20) Mil/uL Hgb (11.0-16.0) g/dL Hct (34.0-47.0) % MCV (81.0-99.0) fL MCH (27.0-31.0) pg MCHC (33.0-37.0) g/dL RDW (11.5-14.5) % Plt Count (130-400) K/uL MPV (7.2-11.7) fL Neut % (Auto) (50.0-75.0) % Lymph % (Auto) (20.0-40.0) % Bucks % (Auto) (0.0-10.0) % Eos % (Auto) (0.0-4.0) % Baso % (Auto) (0.0-2.0) % Neut # (Auto) (1.8-7.0) K/uL Lymph # (Auto) (1.0-4.3) K/uL Bucks # (Auto) (0.0-0.8) K/uL Eos # (Auto) (0.0-0.7) K/uL Baso # (Auto) (0.0-0.2) K/uL pO2 (30-55) mm/Hg VBG pH (7.32-7.43) VBG pCO2 (40-60) mmHg VBG HCO3 mmol/L VBG Total CO2 (22-28) mmol/L VBG O2 Sat (Calc) (40-65) % VBG Base Excess (0.0-2.0) mmol/L VBG Potassium (3.6-5.2) mmol/L Glucose (65-105) mg/dl Lactate (0.7-2.1) mmol/L FiO2 % Crit Value Called To Crit Value Called By Crit Value Read Back Blood Gas Notified Time Sodium (132-148) mmol/L Potassium (3.6-5.2) mmol/L Chloride (98-107) mmol/L Carbon Dioxide (22-30) mmol/L Anion Gap (10-20) BUN (7-17) mg/dL Creatinine (0.7-1.2) mg/dL Est GFR ( Amer) Est GFR (Non-Af Amer) POC Glucose (mg/dL) 179 H 165 H 148 H (65-110) mg/dL Random Glucose (65-105) mg/dL Hemoglobin A1c (4.2-6.5) % Calcium (8.6-10.4) mg/dl Phosphorus (2.5-4.5) mg/dL Magnesium (1.6-2.3) mg/dL Total Bilirubin (0.2-1.3) mg/dL AST (14-36) U/L ALT (9-52) U/L Alkaline Phosphatase (38-126) U/L Total Protein (6.3-8.3) g/dL Albumin (3.5-5.0) g/dL Globulin (2.2-3.9) gm/dL Albumin/Globulin Ratio (1.0-2.1) Amylase (30-110) U/L Lipase (23-300) U/L Beta HCG, Quant mIU/ML Venous Blood Potassium (3.6-5.2) mmol/L B-Hydroxybutyrate (0.02-0.27) mM 09/27/17 09/27/17 09/27/17 Range/Units 03:05 02:21 02:14 WBC (4.8-10.8) K/uL RBC (3.80-5.20) Mil/uL Hgb (11.0-16.0) g/dL Hct (34.0-47.0) % MCV (81.0-99.0) fL MCH (27.0-31.0) pg MCHC (33.0-37.0) g/dL RDW (11.5-14.5) % Plt Count (130-400) K/uL MPV (7.2-11.7) fL Neut % (Auto) (50.0-75.0) % Lymph % (Auto) (20.0-40.0) % Bucks % (Auto) (0.0-10.0) % Eos % (Auto) (0.0-4.0) % Baso % (Auto) (0.0-2.0) % Neut # (Auto) (1.8-7.0) K/uL Lymph # (Auto) (1.0-4.3) K/uL Bucks # (Auto) (0.0-0.8) K/uL Eos # (Auto) (0.0-0.7) K/uL Baso # (Auto) (0.0-0.2) K/uL pO2 (30-55) mm/Hg VBG pH (7.32-7.43) VBG pCO2 (40-60) mmHg VBG HCO3 mmol/L VBG Total CO2 (22-28) mmol/L VBG O2 Sat (Calc) (40-65) % VBG Base Excess (0.0-2.0) mmol/L VBG Potassium (3.6-5.2) mmol/L Glucose (65-105) mg/dl Lactate (0.7-2.1) mmol/L FiO2 % Crit Value Called To Crit Value Called By Crit Value Read Back Blood Gas Notified Time Sodium 135 (132-148) mmol/L Potassium 4.9 (3.6-5.2) mmol/L Chloride 107 (98-107) mmol/L Carbon Dioxide 18 L (22-30) mmol/L Anion Gap 16 (10-20) BUN 5 L (7-17) mg/dL Creatinine 0.6 L (0.7-1.2) mg/dL Est GFR ( Amer) > 60 Est GFR (Non-Af Amer) > 60 POC Glucose (mg/dL) 146 H 141 H (65-110) mg/dL Random Glucose 125 H (65-105) mg/dL Hemoglobin A1c (4.2-6.5) % Calcium 8.3 L (8.6-10.4) mg/dl Phosphorus 2.2 L (2.5-4.5) mg/dL Magnesium 2.2 (1.6-2.3) mg/dL Total Bilirubin 0.7 (0.2-1.3) mg/dL AST 31 (14-36) U/L ALT 31 (9-52) U/L Alkaline Phosphatase 87 (38-126) U/L Total Protein 6.7 (6.3-8.3) g/dL Albumin 3.7 (3.5-5.0) g/dL Globulin 3.0 (2.2-3.9) gm/dL Albumin/Globulin Ratio 1.3 (1.0-2.1) Amylase (30-110) U/L Lipase (23-300) U/L Beta HCG, Quant mIU/ML Venous Blood Potassium (3.6-5.2) mmol/L B-Hydroxybutyrate 0.53 H (0.02-0.27) mM 09/27/17 09/27/17 09/26/17 Range/Units 01:10 00:12 23:04 WBC (4.8-10.8) K/uL RBC (3.80-5.20) Mil/uL Hgb (11.0-16.0) g/dL Hct (34.0-47.0) % MCV (81.0-99.0) fL MCH (27.0-31.0) pg MCHC (33.0-37.0) g/dL RDW (11.5-14.5) % Plt Count (130-400) K/uL MPV (7.2-11.7) fL Neut % (Auto) (50.0-75.0) % Lymph % (Auto) (20.0-40.0) % Bucks % (Auto) (0.0-10.0) % Eos % (Auto) (0.0-4.0) % Baso % (Auto) (0.0-2.0) % Neut # (Auto) (1.8-7.0) K/uL Lymph # (Auto) (1.0-4.3) K/uL Bucks # (Auto) (0.0-0.8) K/uL Eos # (Auto) (0.0-0.7) K/uL Baso # (Auto) (0.0-0.2) K/uL pO2 (30-55) mm/Hg VBG pH (7.32-7.43) VBG pCO2 (40-60) mmHg VBG HCO3 mmol/L VBG Total CO2 (22-28) mmol/L VBG O2 Sat (Calc) (40-65) % VBG Base Excess (0.0-2.0) mmol/L VBG Potassium (3.6-5.2) mmol/L Glucose (65-105) mg/dl Lactate (0.7-2.1) mmol/L FiO2 % Crit Value Called To Crit Value Called By Crit Value Read Back Blood Gas Notified Time Sodium (132-148) mmol/L Potassium (3.6-5.2) mmol/L Chloride (98-107) mmol/L Carbon Dioxide (22-30) mmol/L Anion Gap (10-20) BUN (7-17) mg/dL Creatinine (0.7-1.2) mg/dL Est GFR ( Amer) Est GFR (Non-Af Amer) POC Glucose (mg/dL) 138 H 171 H 158 H (65-110) mg/dL Random Glucose (65-105) mg/dL Hemoglobin A1c (4.2-6.5) % Calcium (8.6-10.4) mg/dl Phosphorus (2.5-4.5) mg/dL Magnesium (1.6-2.3) mg/dL Total Bilirubin (0.2-1.3) mg/dL AST (14-36) U/L ALT (9-52) U/L Alkaline Phosphatase (38-126) U/L Total Protein (6.3-8.3) g/dL Albumin (3.5-5.0) g/dL Globulin (2.2-3.9) gm/dL Albumin/Globulin Ratio (1.0-2.1) Amylase (30-110) U/L Lipase (23-300) U/L Beta HCG, Quant mIU/ML Venous Blood Potassium (3.6-5.2) mmol/L B-Hydroxybutyrate (0.02-0.27) mM 09/26/17 09/26/17 09/26/17 Range/Units 21:57 20:57 20:38 WBC (4.8-10.8) K/uL RBC (3.80-5.20) Mil/uL Hgb (11.0-16.0) g/dL Hct (34.0-47.0) % MCV (81.0-99.0) fL MCH (27.0-31.0) pg MCHC (33.0-37.0) g/dL RDW (11.5-14.5) % Plt Count (130-400) K/uL MPV (7.2-11.7) fL Neut % (Auto) (50.0-75.0) % Lymph % (Auto) (20.0-40.0) % Bucks % (Auto) (0.0-10.0) % Eos % (Auto) (0.0-4.0) % Baso % (Auto) (0.0-2.0) % Neut # (Auto) (1.8-7.0) K/uL Lymph # (Auto) (1.0-4.3) K/uL Bucks # (Auto) (0.0-0.8) K/uL Eos # (Auto) (0.0-0.7) K/uL Baso # (Auto) (0.0-0.2) K/uL pO2 (30-55) mm/Hg VBG pH (7.32-7.43) VBG pCO2 (40-60) mmHg VBG HCO3 mmol/L VBG Total CO2 (22-28) mmol/L VBG O2 Sat (Calc) (40-65) % VBG Base Excess (0.0-2.0) mmol/L VBG Potassium (3.6-5.2) mmol/L Glucose (65-105) mg/dl Lactate (0.7-2.1) mmol/L FiO2 % Crit Value Called To Crit Value Called By Crit Value Read Back Blood Gas Notified Time Sodium 135 (132-148) mmol/L Potassium 3.3 L (3.6-5.2) mmol/L Chloride 105 (98-107) mmol/L Carbon Dioxide 16 L (22-30) mmol/L Anion Gap 17 (10-20) BUN 7 (7-17) mg/dL Creatinine 0.6 L (0.7-1.2) mg/dL Est GFR ( Amer) > 60 Est GFR (Non-Af Amer) > 60 POC Glucose (mg/dL) 151 H 155 H (65-110) mg/dL Random Glucose 181 H (65-105) mg/dL Hemoglobin A1c (4.2-6.5) % Calcium 8.5 L (8.6-10.4) mg/dl Phosphorus 1.6 L (2.5-4.5) mg/dL Magnesium 1.6 (1.6-2.3) mg/dL Total Bilirubin 1.2 (0.2-1.3) mg/dL AST 30 (14-36) U/L ALT 40 (9-52) U/L Alkaline Phosphatase 85 (38-126) U/L Total Protein 6.3 (6.3-8.3) g/dL Albumin 3.5 D (3.5-5.0) g/dL Globulin 2.9 (2.2-3.9) gm/dL Albumin/Globulin Ratio 1.2 (1.0-2.1) Amylase (30-110) U/L Lipase (23-300) U/L Beta HCG, Quant mIU/ML Venous Blood Potassium (3.6-5.2) mmol/L B-Hydroxybutyrate 1.36 H (0.02-0.27) mM 09/26/17 09/26/17 09/26/17 Range/Units 19:58 19:01 18:02 WBC (4.8-10.8) K/uL RBC (3.80-5.20) Mil/uL Hgb (11.0-16.0) g/dL Hct (34.0-47.0) % MCV (81.0-99.0) fL MCH (27.0-31.0) pg MCHC (33.0-37.0) g/dL RDW (11.5-14.5) % Plt Count (130-400) K/uL MPV (7.2-11.7) fL Neut % (Auto) (50.0-75.0) % Lymph % (Auto) (20.0-40.0) % Bucks % (Auto) (0.0-10.0) % Eos % (Auto) (0.0-4.0) % Baso % (Auto) (0.0-2.0) % Neut # (Auto) (1.8-7.0) K/uL Lymph # (Auto) (1.0-4.3) K/uL Bucks # (Auto) (0.0-0.8) K/uL Eos # (Auto) (0.0-0.7) K/uL Baso # (Auto) (0.0-0.2) K/uL pO2 (30-55) mm/Hg VBG pH (7.32-7.43) VBG pCO2 (40-60) mmHg VBG HCO3 mmol/L VBG Total CO2 (22-28) mmol/L VBG O2 Sat (Calc) (40-65) % VBG Base Excess (0.0-2.0) mmol/L VBG Potassium (3.6-5.2) mmol/L Glucose (65-105) mg/dl Lactate (0.7-2.1) mmol/L FiO2 % Crit Value Called To Crit Value Called By Crit Value Read Back Blood Gas Notified Time Sodium (132-148) mmol/L Potassium (3.6-5.2) mmol/L Chloride (98-107) mmol/L Carbon Dioxide (22-30) mmol/L Anion Gap (10-20) BUN (7-17) mg/dL Creatinine (0.7-1.2) mg/dL Est GFR ( Amer) Est GFR (Non-Af Amer) POC Glucose (mg/dL) 199 H 219 H 240 H (65-110) mg/dL Random Glucose (65-105) mg/dL Hemoglobin A1c (4.2-6.5) % Calcium (8.6-10.4) mg/dl Phosphorus (2.5-4.5) mg/dL Magnesium (1.6-2.3) mg/dL Total Bilirubin (0.2-1.3) mg/dL AST (14-36) U/L ALT (9-52) U/L Alkaline Phosphatase (38-126) U/L Total Protein (6.3-8.3) g/dL Albumin (3.5-5.0) g/dL Globulin (2.2-3.9) gm/dL Albumin/Globulin Ratio (1.0-2.1) Amylase (30-110) U/L Lipase (23-300) U/L Beta HCG, Quant mIU/ML Venous Blood Potassium (3.6-5.2) mmol/L B-Hydroxybutyrate (0.02-0.27) mM 09/26/17 09/26/17 09/26/17 Range/Units 17:08 15:48 14:39 WBC (4.8-10.8) K/uL RBC (3.80-5.20) Mil/uL Hgb (11.0-16.0) g/dL Hct (34.0-47.0) % MCV (81.0-99.0) fL MCH (27.0-31.0) pg MCHC (33.0-37.0) g/dL RDW (11.5-14.5) % Plt Count (130-400) K/uL MPV (7.2-11.7) fL Neut % (Auto) (50.0-75.0) % Lymph % (Auto) (20.0-40.0) % Bucks % (Auto) (0.0-10.0) % Eos % (Auto) (0.0-4.0) % Baso % (Auto) (0.0-2.0) % Neut # (Auto) (1.8-7.0) K/uL Lymph # (Auto) (1.0-4.3) K/uL Bucks # (Auto) (0.0-0.8) K/uL Eos # (Auto) (0.0-0.7) K/uL Baso # (Auto) (0.0-0.2) K/uL pO2 (30-55) mm/Hg VBG pH (7.32-7.43) VBG pCO2 (40-60) mmHg VBG HCO3 mmol/L VBG Total CO2 (22-28) mmol/L VBG O2 Sat (Calc) (40-65) % VBG Base Excess (0.0-2.0) mmol/L VBG Potassium (3.6-5.2) mmol/L Glucose (65-105) mg/dl Lactate (0.7-2.1) mmol/L FiO2 % Crit Value Called To Crit Value Called By Crit Value Read Back Blood Gas Notified Time Sodium (132-148) mmol/L Potassium (3.6-5.2) mmol/L Chloride (98-107) mmol/L Carbon Dioxide (22-30) mmol/L Anion Gap (10-20) BUN (7-17) mg/dL Creatinine (0.7-1.2) mg/dL Est GFR ( Amer) Est GFR (Non-Af Amer) POC Glucose (mg/dL) 289 H 282 H 326 H (65-110) mg/dL Random Glucose (65-105) mg/dL Hemoglobin A1c (4.2-6.5) % Calcium (8.6-10.4) mg/dl Phosphorus (2.5-4.5) mg/dL Magnesium (1.6-2.3) mg/dL Total Bilirubin (0.2-1.3) mg/dL AST (14-36) U/L ALT (9-52) U/L Alkaline Phosphatase (38-126) U/L Total Protein (6.3-8.3) g/dL Albumin (3.5-5.0) g/dL Globulin (2.2-3.9) gm/dL Albumin/Globulin Ratio (1.0-2.1) Amylase (30-110) U/L Lipase (23-300) U/L Beta HCG, Quant mIU/ML Venous Blood Potassium (3.6-5.2) mmol/L B-Hydroxybutyrate (0.02-0.27) mM 09/26/17 09/26/17 09/26/17 Range/Units 12:48 12:42 12:42 WBC 3.3 L D (4.8-10.8) K/uL RBC 4.46 (3.80-5.20) Mil/uL Hgb 11.2 (11.0-16.0) g/dL Hct 34.2 (34.0-47.0) % MCV 76.7 L (81.0-99.0) fL MCH 25.2 L (27.0-31.0) pg MCHC 32.8 L (33.0-37.0) g/dL RDW 17.8 H (11.5-14.5) % Plt Count 273 (130-400) K/uL MPV 8.4 (7.2-11.7) fL Neut % (Auto) 66.2 (50.0-75.0) % Lymph % (Auto) 26.0 (20.0-40.0) % Bucks % (Auto) 6.1 (0.0-10.0) % Eos % (Auto) 1.1 (0.0-4.0) % Baso % (Auto) 0.6 (0.0-2.0) % Neut # (Auto) 2.2 (1.8-7.0) K/uL Lymph # (Auto) 0.9 L (1.0-4.3) K/uL Bucks # (Auto) 0.2 (0.0-0.8) K/uL Eos # (Auto) 0.0 (0.0-0.7) K/uL Baso # (Auto) 0.0 (0.0-0.2) K/uL pO2 37 (30-55) mm/Hg VBG pH 7.25 L (7.32-7.43) VBG pCO2 29 L (40-60) mmHg VBG HCO3 13.7 mmol/L VBG Total CO2 13.6 L (22-28) mmol/L VBG O2 Sat (Calc) 74.7 H (40-65) % VBG Base Excess -13.1 L (0.0-2.0) mmol/L VBG Potassium 4.1 (3.6-5.2) mmol/L Glucose 423 H* D (65-105) mg/dl Lactate 0.9 (0.7-2.1) mmol/L FiO2 21.0 % Crit Value Called To Madelin Crit Value Called By Arlye Crit Value Read Back Y Blood Gas Notified Time 1252 Sodium 130.0 L 133 (132-148) mmol/L Potassium 4.3 (3.6-5.2) mmol/L Chloride 97.0 L 99 (98-107) mmol/L Carbon Dioxide 11 L* D (22-30) mmol/L Anion Gap 28 H (10-20) BUN 9 (7-17) mg/dL Creatinine 0.8 (0.7-1.2) mg/dL Est GFR ( Amer) > 60 Est GFR (Non-Af Amer) > 60 POC Glucose (mg/dL) (65-110) mg/dL Random Glucose 386 H (65-105) mg/dL Hemoglobin A1c (4.2-6.5) % Calcium 9.1 (8.6-10.4) mg/dl Phosphorus 2.9 (2.5-4.5) mg/dL Magnesium 1.7 (1.6-2.3) mg/dL Total Bilirubin 1.0 (0.2-1.3) mg/dL AST 39 H (14-36) U/L ALT 35 (9-52) U/L Alkaline Phosphatase 103 (38-126) U/L Total Protein 7.6 (6.3-8.3) g/dL Albumin 4.5 (3.5-5.0) g/dL Globulin 3.1 (2.2-3.9) gm/dL Albumin/Globulin Ratio 1.4 (1.0-2.1) Amylase 68 (30-110) U/L Lipase 16 L (23-300) U/L Beta HCG, Quant < 2.39 mIU/ML Venous Blood Potassium 4.1 (3.6-5.2) mmol/L B-Hydroxybutyrate 5.73 H (0.02-0.27) mM Laboratory Results - last 24 hr 09/26/17 09/26/17 09/26/17 12:42 12:42 12:48 WBC 3.3 L D RBC 4.46 Hgb 11.2 Hct 34.2 MCV 76.7 L MCH 25.2 L MCHC 32.8 L RDW 17.8 H Plt Count 273 MPV 8.4 Neut % (Auto) 66.2 Lymph % (Auto) 26.0 Bucks % (Auto) 6.1 Eos % (Auto) 1.1 Baso % (Auto) 0.6 Neut # (Auto) 2.2 Lymph # (Auto) 0.9 L Bucks # (Auto) 0.2 Eos # (Auto) 0.0 Baso # (Auto) 0.0 pO2 37 VBG pH 7.25 L VBG pCO2 29 L VBG HCO3 13.7 VBG Total CO2 13.6 L VBG O2 Sat (Calc) 74.7 H VBG Base Excess -13.1 L VBG Potassium 4.1 Glucose 423 H* D Lactate 0.9 FiO2 21.0 Crit Value Called To Madelin Crit Value Called By Arley Crit Value Read Back Y Blood Gas Notified Time 1252 Sodium 133 130.0 L Potassium 4.3 Chloride 99 97.0 L Carbon Dioxide 11 L* D Anion Gap 28 H BUN 9 Creatinine 0.8 Est GFR ( Amer) > 60 Est GFR (Non-Af Amer) > 60 POC Glucose (mg/dL) Random Glucose 386 H Hemoglobin A1c Calcium 9.1 Phosphorus 2.9 Magnesium 1.7 Total Bilirubin 1.0 AST 39 H ALT 35 Alkaline Phosphatase 103 Total Protein 7.6 Albumin 4.5 Globulin 3.1 Albumin/Globulin Ratio 1.4 Amylase 68 Lipase 16 L Beta HCG, Quant < 2.39 Venous Blood Potassium 4.1 B-Hydroxybutyrate 5.73 H 09/26/17 09/26/17 09/26/17 14:39 15:48 17:08 WBC RBC Hgb Hct MCV MCH MCHC RDW Plt Count MPV Neut % (Auto) Lymph % (Auto) Bucks % (Auto) Eos % (Auto) Baso % (Auto) Neut # (Auto) Lymph # (Auto) Bucks # (Auto) Eos # (Auto) Baso # (Auto) pO2 VBG pH VBG pCO2 VBG HCO3 VBG Total CO2 VBG O2 Sat (Calc) VBG Base Excess VBG Potassium Glucose Lactate FiO2 Crit Value Called To Crit Value Called By Crit Value Read Back Blood Gas Notified Time Sodium Potassium Chloride Carbon Dioxide Anion Gap BUN Creatinine Est GFR ( Amer) Est GFR (Non-Af Amer) POC Glucose (mg/dL) 326 H 282 H 289 H Random Glucose Hemoglobin A1c Calcium Phosphorus Magnesium Total Bilirubin AST ALT Alkaline Phosphatase Total Protein Albumin Globulin Albumin/Globulin Ratio Amylase Lipase Beta HCG, Quant Venous Blood Potassium B-Hydroxybutyrate 09/26/17 09/26/17 09/26/17 18:02 19:01 19:58 WBC RBC Hgb Hct MCV MCH MCHC RDW Plt Count MPV Neut % (Auto) Lymph % (Auto) Bucks % (Auto) Eos % (Auto) Baso % (Auto) Neut # (Auto) Lymph # (Auto) Bucks # (Auto) Eos # (Auto) Baso # (Auto) pO2 VBG pH VBG pCO2 VBG HCO3 VBG Total CO2 VBG O2 Sat (Calc) VBG Base Excess VBG Potassium Glucose Lactate FiO2 Crit Value Called To Crit Value Called By Crit Value Read Back Blood Gas Notified Time Sodium Potassium Chloride Carbon Dioxide Anion Gap BUN Creatinine Est GFR ( Amer) Est GFR (Non-Af Amer) POC Glucose (mg/dL) 240 H 219 H 199 H Random Glucose Hemoglobin A1c Calcium Phosphorus Magnesium Total Bilirubin AST ALT Alkaline Phosphatase Total Protein Albumin Globulin Albumin/Globulin Ratio Amylase Lipase Beta HCG, Quant Venous Blood Potassium B-Hydroxybutyrate 09/26/17 09/26/17 09/26/17 20:38 20:57 21:57 WBC RBC Hgb Hct MCV MCH MCHC RDW Plt Count MPV Neut % (Auto) Lymph % (Auto) Bucks % (Auto) Eos % (Auto) Baso % (Auto) Neut # (Auto) Lymph # (Auto) Bucks # (Auto) Eos # (Auto) Baso # (Auto) pO2 VBG pH VBG pCO2 VBG HCO3 VBG Total CO2 VBG O2 Sat (Calc) VBG Base Excess VBG Potassium Glucose Lactate FiO2 Crit Value Called To Crit Value Called By Crit Value Read Back Blood Gas Notified Time Sodium 135 Potassium 3.3 L Chloride 105 Carbon Dioxide 16 L Anion Gap 17 BUN 7 Creatinine 0.6 L Est GFR ( Amer) > 60 Est GFR (Non-Af Amer) > 60 POC Glucose (mg/dL) 155 H 151 H Random Glucose 181 H Hemoglobin A1c Calcium 8.5 L Phosphorus 1.6 L Magnesium 1.6 Total Bilirubin 1.2 AST 30 ALT 40 Alkaline Phosphatase 85 Total Protein 6.3 Albumin 3.5 D Globulin 2.9 Albumin/Globulin Ratio 1.2 Amylase Lipase Beta HCG, Quant Venous Blood Potassium B-Hydroxybutyrate 1.36 H 09/26/17 09/27/17 09/27/17 23:04 00:12 01:10 WBC RBC Hgb Hct MCV MCH MCHC RDW Plt Count MPV Neut % (Auto) Lymph % (Auto) Bucks % (Auto) Eos % (Auto) Baso % (Auto) Neut # (Auto) Lymph # (Auto) Bucks # (Auto) Eos # (Auto) Baso # (Auto) pO2 VBG pH VBG pCO2 VBG HCO3 VBG Total CO2 VBG O2 Sat (Calc) VBG Base Excess VBG Potassium Glucose Lactate FiO2 Crit Value Called To Crit Value Called By Crit Value Read Back Blood Gas Notified Time Sodium Potassium Chloride Carbon Dioxide Anion Gap BUN Creatinine Est GFR ( Amer) Est GFR (Non-Af Amer) POC Glucose (mg/dL) 158 H 171 H 138 H Random Glucose Hemoglobin A1c Calcium Phosphorus Magnesium Total Bilirubin AST ALT Alkaline Phosphatase Total Protein Albumin Globulin Albumin/Globulin Ratio Amylase Lipase Beta HCG, Quant Venous Blood Potassium B-Hydroxybutyrate 09/27/17 09/27/17 09/27/17 02:14 02:21 03:05 WBC RBC Hgb Hct MCV MCH MCHC RDW Plt Count MPV Neut % (Auto) Lymph % (Auto) Bucks % (Auto) Eos % (Auto) Baso % (Auto) Neut # (Auto) Lymph # (Auto) Bucks # (Auto) Eos # (Auto) Baso # (Auto) pO2 VBG pH VBG pCO2 VBG HCO3 VBG Total CO2 VBG O2 Sat (Calc) VBG Base Excess VBG Potassium Glucose Lactate FiO2 Crit Value Called To Crit Value Called By Crit Value Read Back Blood Gas Notified Time Sodium 135 Potassium 4.9 Chloride 107 Carbon Dioxide 18 L Anion Gap 16 BUN 5 L Creatinine 0.6 L Est GFR ( Amer) > 60 Est GFR (Non-Af Amer) > 60 POC Glucose (mg/dL) 141 H 146 H Random Glucose 125 H Hemoglobin A1c Calcium 8.3 L Phosphorus 2.2 L Magnesium 2.2 Total Bilirubin 0.7 AST 31 ALT 31 Alkaline Phosphatase 87 Total Protein 6.7 Albumin 3.7 Globulin 3.0 Albumin/Globulin Ratio 1.3 Amylase Lipase Beta HCG, Quant Venous Blood Potassium B-Hydroxybutyrate 0.53 H 09/27/17 09/27/17 09/27/17 04:09 05:24 06:08 WBC RBC Hgb Hct MCV MCH MCHC RDW Plt Count MPV Neut % (Auto) Lymph % (Auto) Bucks % (Auto) Eos % (Auto) Baso % (Auto) Neut # (Auto) Lymph # (Auto) Bucks # (Auto) Eos # (Auto) Baso # (Auto) pO2 VBG pH VBG pCO2 VBG HCO3 VBG Total CO2 VBG O2 Sat (Calc) VBG Base Excess VBG Potassium Glucose Lactate FiO2 Crit Value Called To Crit Value Called By Crit Value Read Back Blood Gas Notified Time Sodium Potassium Chloride Carbon Dioxide Anion Gap BUN Creatinine Est GFR ( Amer) Est GFR (Non-Af Amer) POC Glucose (mg/dL) 148 H 165 H 179 H Random Glucose Hemoglobin A1c Calcium Phosphorus Magnesium Total Bilirubin AST ALT Alkaline Phosphatase Total Protein Albumin Globulin Albumin/Globulin Ratio Amylase Lipase Beta HCG, Quant Venous Blood Potassium B-Hydroxybutyrate 09/27/17 09/27/17 09/27/17 06:14 06:14 06:14 WBC 4.2 L RBC 4.06 Hgb 10.1 L Hct 30.8 L MCV 75.8 L MCH 24.9 L MCHC 32.8 L RDW 17.8 H Plt Count 264 MPV 8.6 Neut % (Auto) 69.7 Lymph % (Auto) 24.0 Bucks % (Auto) 5.2 Eos % (Auto) 0.7 Baso % (Auto) 0.4 Neut # (Auto) 2.9 Lymph # (Auto) 1.0 Bucks # (Auto) 0.2 Eos # (Auto) 0.0 Baso # (Auto) 0.0 pO2 VBG pH VBG pCO2 VBG HCO3 VBG Total CO2 VBG O2 Sat (Calc) VBG Base Excess VBG Potassium Glucose Lactate FiO2 Crit Value Called To Crit Value Called By Crit Value Read Back Blood Gas Notified Time Sodium 134 Potassium 4.4 Chloride 106 Carbon Dioxide 17 L Anion Gap 16 BUN 5 L Creatinine 0.5 L Est GFR ( Amer) > 60 Est GFR (Non-Af Amer) > 60 POC Glucose (mg/dL) Random Glucose 133 H Hemoglobin A1c 10.3 H Calcium 8.1 L Phosphorus 2.9 Magnesium 1.9 Total Bilirubin 0.7 AST 29 ALT 33 Alkaline Phosphatase 80 Total Protein 6.2 L Albumin 3.5 Globulin 2.7 Albumin/Globulin Ratio 1.3 Amylase Lipase Beta HCG, Quant Venous Blood Potassium B-Hydroxybutyrate 09/27/17 09/27/17 09/27/17 07:19 10:50 11:13 WBC RBC Hgb Hct MCV MCH MCHC RDW Plt Count MPV Neut % (Auto) Lymph % (Auto) Bucks % (Auto) Eos % (Auto) Baso % (Auto) Neut # (Auto) Lymph # (Auto) Bucks # (Auto) Eos # (Auto) Baso # (Auto) pO2 VBG pH VBG pCO2 VBG HCO3 VBG Total CO2 VBG O2 Sat (Calc) VBG Base Excess VBG Potassium Glucose Lactate FiO2 Crit Value Called To Crit Value Called By Crit Value Read Back Blood Gas Notified Time Sodium 136 Potassium 4.1 Chloride 104 Carbon Dioxide 20 L Anion Gap 16 BUN 4 L Creatinine 0.6 L Est GFR ( Amer) > 60 Est GFR (Non-Af Amer) > 60 POC Glucose (mg/dL) 214 H 154 H Random Glucose 150 H Hemoglobin A1c Calcium 9.3 Phosphorus Magnesium Total Bilirubin AST ALT Alkaline Phosphatase Total Protein Albumin Globulin Albumin/Globulin Ratio Amylase Lipase Beta HCG, Quant Venous Blood Potassium B-Hydroxybutyrate Fingerstick Blood Sugar Results: 154 Review of Systems - Review of Systems All systems: reviewed and no additional remarkable complaints except Critical Care Progress Note - Nutrition Nutrition: Nutrition Category Date Time Status Diabetic [Consistent Carbohydrate] [DIET] Diets 09/27/17 Breakfast Active Assessment/Plan (1) Diabetic acidosis Assessment and plan: Diabetic ketoacidosis, currently stable, transferred to regular medical floor Current Visit: Yes Status: Acute
[2017-09-27] MEDS ORDERED: LIPASE/PROTEASE/AMYLASE 21,000 U ECC PO SCH (18:00)
[2017-09-27] MEDS ORDERED: Insulin Detemir 100 units/ml Vial (Levemir) SC SCH (22:00)
--- NOTE | 2017-09-27 23:08 | CP.PCM.DIS ---
Provider - Provider Date of Admission: 09/26/17 14:09 Attending physician: Ismael Castro MD Time Spent in preparation of Discharge (in minutes): 45 Hospital Course - Lab Results Lab Results: Micro Results 09/26/17 19:58 Naris MRSA Culture (Admit) - Final MRSA NOT DETECTED Most Recent Lab Values WBC 4.2 K/uL (4.8-10.8) L 09/27/17 06:14 RBC 4.06 Mil/uL (3.80-5.20) 09/27/17 06:14 Hgb 10.1 g/dL (11.0-16.0) L 09/27/17 06:14 Hct 30.8 % (34.0-47.0) L 09/27/17 06:14 MCV 75.8 fL (81.0-99.0) L 09/27/17 06:14 MCH 24.9 pg (27.0-31.0) L 09/27/17 06:14 MCHC 32.8 g/dL (33.0-37.0) L 09/27/17 06:14 RDW 17.8 % (11.5-14.5) H 09/27/17 06:14 Plt Count 264 K/uL (130-400) 09/27/17 06:14 MPV 8.6 fL (7.2-11.7) 09/27/17 06:14 Neut % (Auto) 69.7 % (50.0-75.0) 09/27/17 06:14 Lymph % (Auto) 24.0 % (20.0-40.0) 09/27/17 06:14 Weber % (Auto) 5.2 % (0.0-10.0) 09/27/17 06:14 Eos % (Auto) 0.7 % (0.0-4.0) 09/27/17 06:14 Baso % (Auto) 0.4 % (0.0-2.0) 09/27/17 06:14 Neut # (Auto) 2.9 K/uL (1.8-7.0) 09/27/17 06:14 Lymph # (Auto) 1.0 K/uL (1.0-4.3) 09/27/17 06:14 Weber # (Auto) 0.2 K/uL (0.0-0.8) 09/27/17 06:14 Eos # (Auto) 0.0 K/uL (0.0-0.7) 09/27/17 06:14 Baso # (Auto) 0.0 K/uL (0.0-0.2) 09/27/17 06:14 pO2 37 mm/Hg (30-55) 09/26/17 12:48 VBG pH 7.25 (7.32-7.43) L 09/26/17 12:48 VBG pCO2 29 mmHg (40-60) L 09/26/17 12:48 VBG HCO3 13.7 mmol/L 09/26/17 12:48 VBG Total CO2 13.6 mmol/L (22-28) L 09/26/17 12:48 VBG O2 Sat (Calc) 74.7 % (40-65) H 09/26/17 12:48 VBG Base Excess -13.1 mmol/L (0.0-2.0) L 09/26/17 12:48 VBG Potassium 4.1 mmol/L (3.6-5.2) 09/26/17 12:48 Sodium 130.0 mmol/l (132-148) L 09/26/17 12:48 Chloride 97.0 mmol/L (98-107) L 09/26/17 12:48 Glucose 423 mg/dl (65-105) H* D 09/26/17 12:48 Lactate 0.9 mmol/L (0.7-2.1) 09/26/17 12:48 FiO2 21.0 % 09/26/17 12:48 Crit Value Called To Madelin 09/26/17 12:48 Crit Value Called By Arley 09/26/17 12:48 Crit Value Read Back Y 09/26/17 12:48 Blood Gas Notified Time 1252 09/26/17 12:48 Sodium 136 mmol/L (132-148) 09/27/17 10:50 Potassium 4.1 mmol/L (3.6-5.2) 09/27/17 10:50 Chloride 104 mmol/L (98-107) 09/27/17 10:50 Carbon Dioxide 20 mmol/L (22-30) L 09/27/17 10:50 Anion Gap 16 (10-20) 09/27/17 10:50 BUN 4 mg/dL (7-17) L 09/27/17 10:50 Creatinine 0.6 mg/dL (0.7-1.2) L 09/27/17 10:50 Est GFR ( Amer) > 60 09/27/17 10:50 Est GFR (Non-Af Amer) > 60 09/27/17 10:50 POC Glucose (mg/dL) 154 mg/dL (65-110) H 09/27/17 11:13 Random Glucose 150 mg/dL (65-105) H 09/27/17 10:50 Hemoglobin A1c 10.3 % (4.2-6.5) H 09/27/17 06:14 Calcium 9.3 mg/dl (8.6-10.4) 09/27/17 10:50 Phosphorus 2.9 mg/dL (2.5-4.5) 09/27/17 06:14 Magnesium 1.9 mg/dL (1.6-2.3) 09/27/17 06:14 Total Bilirubin 0.7 mg/dL (0.2-1.3) 09/27/17 06:14 AST 29 U/L (14-36) 09/27/17 06:14 ALT 33 U/L (9-52) 09/27/17 06:14 Alkaline Phosphatase 80 U/L (38-126) 09/27/17 06:14 Total Protein 6.2 g/dL (6.3-8.3) L 09/27/17 06:14 Albumin 3.5 g/dL (3.5-5.0) 09/27/17 06:14 Globulin 2.7 gm/dL (2.2-3.9) 09/27/17 06:14 Albumin/Globulin Ratio 1.3 (1.0-2.1) 09/27/17 06:14 Amylase 68 U/L (30-110) 09/26/17 12:42 Lipase 16 U/L (23-300) L 09/26/17 12:42 Beta HCG, Quant < 2.39 mIU/ML 09/26/17 12:42 Venous Blood Potassium 4.1 mmol/L (3.6-5.2) 09/26/17 12:48 B-Hydroxybutyrate 0.53 mM (0.02-0.27) H 09/27/17 02:21 - Hospital Course Hospital Course: Patient is a 37-year-old female admitted to the hospital with acute DKA, secondary to noncompliance with insulin. Patient visit ID fluid, insulin drip, currently that anion gap improved Patient is feeling better, tolerating the oral feeding Pt was transferred to medical floor from ICU for further medical management and observation bit she left AMA Discharge Exam - Head Exam Head Exam: ATRAUMATIC, NORMAL INSPECTION, NORMOCEPHALIC Discharge Plan - Follow Up Plan Condition: GOOD Disposition: AGAINST MEDICAL ADVICE
[2017-09-28 00:46] LABS: SQUAMOUS EPITHIAL 1 /hpf (0-5); URINE BILIRUBIN NEGATIVE (NEGATIVE); URINE BLOOD NEGATIVE (NEGATIVE); URINE CLARITY Clear (Clear); URINE COLOR Straw (YELLOW); URINE GLUCOSE (UA) NORMAL (Normal); URINE LEUKOCYTE ESTERASE NEG Leu/uL (Negative); URINE PROTEIN NEGATIVE (NEGATIVE); URINE UROBILINOGEN NORMAL mg/dL (0.2-1.0)
== END 2017-09-27 15:40 | disposition left against medical advice (07) | DRG 294 ==
LOC: C.ER 12:10 → C.9E 14:09 → C.9I 17:21
PROVIDERS: ADMIT Internal Medicine; ATTEND Internal Medicine
DX: E10.10 Type 1 diabetes mellitus with ketoacidosis without coma (principal); F10.129 Alcohol abuse with intoxication, unspecified; F17.200 Nicotine dependence, unspecified, uncomplicated; J45.909 Unspecified asthma, uncomplicated; K86.1 Other chronic pancreatitis; Z79.4 Long term (current) use of insulin; Z91.14 Patient's other noncompliance with medication regimen

== ENCOUNTER 2017-10-20 18:40 | Emergency (ER) | payer MEDICAID ==
[2017-10-20 18:41] VITALS: BMI 24.3
[2017-10-20 18:58] VITALS: RESP 18
[2017-10-20] MEDS ORDERED: Sodium Chloride 0.9% 1,000 ML IV ONE (19:48)
--- NOTE | 2017-10-20 19:50 | C.PDOC ---
History Of Present Illness 37 year old female with PMHx of diabetes and gastroparesis is sent to the ED from Dr. Castro's office for evaluation of palpitations and frequent abdominal pain. Patient went to see Dr. Castro today at his office c/o non descriptive abdominal pain, during the examination patient was found to be tachycardic and was c/o palpitations and dizziness. Dr. Castro sent her to the ED for evaluation. On the ED patient is only c/o generalized abdominal pain associated with mild nausea and vomiting that is not exacerbated by anything. Patient denies CP, SOB, fever, chills, back pain, weakness, numbness. Time Seen by Provider: 10/20/17 19:41 Chief Complaint (Nursing): Abdominal Pain History Per: Patient History/Exam Limitations: no limitations Onset/Duration Of Symptoms: Days Current Symptoms Are (Timing): Still Present Reports Recently: Treated By A Physician (Dr. Castro) Recent travel outside of the [place]: No Additional History Per: Patient Past Medical History Reviewed: Historical Data, Nursing Documentation, Vital Signs Vital Signs: Last Vital Signs Temp 99 F 10/20/17 18:56 Pulse 106 H 10/20/17 21:20 Resp 18 10/20/17 21:20 BP 122/86 10/20/17 21:20 Pulse Ox 98 10/20/17 21:20 - Medical History PMH: Anemia, Anxiety, Arthritis, Asthma, Depression, Diabetes, Gastritis, Gastrointestinal Ulcer, Gall Bladder Disease, Pancreatitis, Seizures Denies: Chronic Kidney Disease Surgical History: Cholecystectomy, Endoscopy - [facility] Procedures CLOSED ENDOSCOPIC BIOPSY OF LARGE INTESTINE (01/22/15) DETOXIFICATION SERVICES FOR SUBSTANCE ABUSE TREATMENT (09/09/17) ESOPHAGOGASTRODUODENOSCOPY [EGD] W/CLOSED BIOPSY (01/24/15) EXCISION OF STOMACH, ENDO, DIAGN (11/28/16) Family History: States: Unknown Family Hx - Social History Hx Tobacco Use: Yes Hx Alcohol Use: No Hx Substance Use: No - Immunization History Hx Tetanus Toxoid Vaccination: Yes Hx Influenza Vaccination: No Hx Pneumococcal Vaccination: No Review Of Systems Constitutional: Negative for: Fever, Chills Cardiovascular: Positive for: Palpitations. Negative for: Chest Pain Respiratory: Negative for: Cough, Shortness of Breath Gastrointestinal: Positive for: Nausea, Vomiting, Abdominal Pain Skin: Negative for: Rash Neurological: Negative for: Weakness, Numbness Physical Exam - Physical Exam Appears: Non-toxic, No Acute Distress Skin: Normal Color, Warm, Dry Head: Atraumatic, Normacephalic Eye(s): bilateral: Normal Inspection Oral Mucosa: Dry Neck: Normal ROM, Supple Chest: Symmetrical Cardiovascular: Rhythm Regular (tachycardic rate in the 120) Respiratory: Normal Breath Sounds, No Rales, No Rhonchi, No Wheezing Gastrointestinal/Abdominal: Soft, No Tenderness (no localized), No Guarding, No Rebound Extremity: Normal ROM, No Tenderness, No Swelling Neurological/Psych: Oriented x3, Normal Speech Gait: Steady ED Course And Treatment - Laboratory Results Result Diagrams: 10/20/17 19:55 10/20/17 19:55 Lab Interpretation: No Acute Changes ECG: Interpreted By Me ECG Rhythm: Sinus Tachycardia ECG Interpretation: Abnormal O2 Sat by Pulse Oximetry: 100 (ON RA) Pulse Ox Interpretation: Normal - Radiology CXR: Interpreted by Nv CXR Interpretation: Yes: No Acute Disease Reevaluation Time: 22:15 Reassessment Condition: Improved (Heart rate decreased to 95-100 and patient no longer is c/o palpitations or dizziness.) - Physician Consult Information Time Consulting Physician Contacted: 22:16 Physician Contacted: Ismael Castro Outcome Of Conversation: He suggests keeping her on observation but patient prefers to go home. He will see her in the office tomorrow. Medical Decision Making Medical Decision Making: Plan: * EKG * Labs * CXR * IV fluids * UA Disposition Counseled Patient/Family Regarding: Studies Performed, Diagnosis, Need For Followup - Disposition Referrals: Ismael Castro MD [Staff Provider] - Disposition: HOME/ ROUTINE Disposition Time: 22:17 Condition: IMPROVED Instructions: Sinus Tachycardia (DC) Forms: [employer] (Czech) - Clinical Impression Clinical Impression: Sinus tachycardia - Scribe Statement The provider has reviewed the documentation as recorded by the Scribe Anatoliy Jackson All medical record entries made by the Scribe were at my direction and personally dictated by me. I have reviewed the chart and agree that the record accurately reflects my personal performance of the history, physical exam, medical decision making, and the department course for this patient. I have also personally directed, reviewed, and agree with the discharge instructions and disposition.
[2017-10-20 20:02] LABS: BASO % 0.5 % (0.0-2.0); EOS # 0.1 K/uL (0.0-0.7); EOS % 0.6 % (0.0-4.0); LYMPH # 1.5 K/uL (1.0-4.3); LYMPH % 17.4 % (20.0-40.0); MEAN CELL VOLUME 78.2 fL (81.0-99.0); MEAN CORPUSCULAR HEMOGLOBIN 25.3 pg (27.0-31.0); MEAN CORPUSCULAR HGB CONC 32.4 g/dL (33.0-37.0); MEAN PLATELET VOLUME 8.6 fL (7.2-11.7); MONO # 0.5 K/uL (0.0-0.8); MONO % 6.2 % (0.0-10.0); NEUT # 6.4 K/uL (1.8-7.0); NEUT % 75.3 % (50.0-75.0); RBC 5.55 Mil/uL (3.80-5.20); RED CELL DISTRIBUTION WIDTH 20.4 % (11.5-14.5); WHITE BLOOD COUNT 8.5 K/uL (4.8-10.8)
[2017-10-20 20:16] LABS: ALB/GLOB RATIO 1.4 (1.0-2.1); ALBUMIN 5.1 g/dL (3.5-5.0); ALT/SGPT 39 U/L (9-52); AST/SGOT 53 U/L (14-36); BLOOD UREA NITROGEN 4 mg/dL (7-17); CALCIUM 10.2 mg/dl (8.6-10.4); GFR AFRICAN-AMERICAN > 60; GFR NON-AFRICAN AMERICAN > 60
[2017-10-20 20:27] LABS: SQUAMOUS EPITHIAL 2 /hpf (0-5); URINE BACTERIA RARE (<OCC); URINE BILIRUBIN NEGATIVE (NEGATIVE); URINE BLOOD NEGATIVE (NEGATIVE); URINE CALCIUM OXALATE CRYSTALS MOD /hpf (<OCC); URINE CLARITY Hazy (Clear); URINE COLOR Yellow (YELLOW); URINE GLUCOSE (UA) NORMAL (Normal); URINE HYALINE CAST >20 /lpf (0-2); URINE LEUKOCYTE ESTERASE NEG Leu/uL (Negative); URINE PROTEIN 1+ mg/dL (NEGATIVE); URINE UROBILINOGEN NORMAL mg/dL (0.2-1.0)
[2017-10-20 22:26] VITALS: BP 117/84; PULSE 105; TEMP 98.3; O2SAT 98
--- NOTE | 2017-10-21 08:29 | RAD ---
Chest x-ray single frontal view History: Palpitations. Comparison: 11/28/2016 Findings: Lines and tubes in stable position. Bibasilar breast and nipple shadows. Heart size within normal limits. No focal infiltrate or effusion. Impression No focal infiltrate or effusion.
--- NOTE | 2017-10-21 19:55 | CARD ---
APPROVED REPORT EKG Measurement Heart [id number] <Conclusion> Sinus tachycardia Biatrial enlargement Abnormal ECG
== END 2017-10-20 22:26 | disposition home or self-care (01) ==
LOC: C.ER 18:40
DX: R00.0 Tachycardia, unspecified (principal); E11.9 Type 2 diabetes mellitus without complications; Z72.0 Tobacco use
CPT/HCPCS: 71045; 80053; 81001; 82948; 84484; 85025; 85378; 93005; 96360; 99285; J7030

== ENCOUNTER 2018-01-18 20:36 | Emergency (ER) | payer MEDICAID ==
[2018-01-18 20:37] VITALS: BMI 24.3
[2018-01-18 20:46] VITALS: BP 115/72; RESP 16; TEMP 98.6; O2SAT 99
[2018-01-18] MEDS ORDERED: Sodium Chloride 0.9% 1,000 ML IV ONE (21:30)
--- NOTE | 2018-01-18 21:30 | C.PDOC ---
History Of Present Illness 37 y/o female presents to the ED with complaints of generalized abdominal pain for the past few days. Patient admits to drinking daily alcohol for the last month. Describes the pain as dull and achy. Otherwise patient denies any nausea , vomiting, fever, or chills. Time Seen by Provider: 01/18/18 21:29 Chief Complaint (Nursing): Abdominal Pain History Per: Patient History/Exam Limitations: no limitations Onset/Duration Of Symptoms: Days Current Symptoms Are (Timing): Still Present Severity: Mild Pain Scale Rating Of: 4 Location Of Pain/Discomfort: Diffuse Quality Of Discomfort: Dull, Aching Exacerbating Factors: None Recent travel outside of the [place]: No Past Medical History Reviewed: Historical Data, Nursing Documentation, Vital Signs Vital Signs: Last Vital Signs Temp 98.6 F 01/18/18 20:41 Pulse 110 H 01/18/18 22:04 Resp 16 01/18/18 20:41 BP 115/72 01/18/18 20:41 Pulse Ox 99 01/18/18 22:04 - Medical History PMH: Anemia, Anxiety, Arthritis, Asthma, Depression, Diabetes, Gastritis, Gastrointestinal Ulcer, Gall Bladder Disease, Pancreatitis, Seizures Denies: Chronic Kidney Disease Surgical History: Cholecystectomy, Endoscopy - [facility] Procedures CLOSED ENDOSCOPIC BIOPSY OF LARGE INTESTINE (01/22/15) DETOXIFICATION SERVICES FOR SUBSTANCE ABUSE TREATMENT (09/09/17) ESOPHAGOGASTRODUODENOSCOPY [EGD] W/CLOSED BIOPSY (01/24/15) EXCISION OF STOMACH, ENDO, DIAGN (11/28/16) Family History: States: Unknown Family Hx - Social History Hx Tobacco Use: Yes Hx Alcohol Use: Yes Hx Substance Use: No - Immunization History Hx Tetanus Toxoid Vaccination: Yes Hx Influenza Vaccination: No Hx Pneumococcal Vaccination: No Review Of Systems Constitutional: Negative for: Fever, Chills Cardiovascular: Negative for: Chest Pain Respiratory: Negative for: Shortness of Breath Gastrointestinal: Positive for: Abdominal Pain. Negative for: Nausea, Vomiting , Diarrhea, Other (GI bleed) Neurological: Negative for: Weakness, Numbness Physical Exam - Physical Exam Appears: Non-toxic, No Acute Distress Skin: Warm, Dry Head: Normacephalic Eye(s): bilateral: Normal Inspection Oral Mucosa: Moist Neck: Trachea Midline, Supple Chest: Other (Port to right side of chest) Cardiovascular: Rhythm Regular Respiratory: No Rales, No Rhonchi, No Wheezing Gastrointestinal/Abdominal: Soft, Tenderness (Mid-epigastric tenderness), No Guarding, No Rebound Extremity: Bilateral: Atraumatic, Normal ROM Pulses: Left Dorsalis Pedis: Normal, Right Dorsalis Pedis: Normal Neurological/Psych: Oriented x3 Gait: Steady ED Course And Treatment - Laboratory Results Result Diagrams: 01/18/18 21:36 01/18/18 21:36 O2 Sat by Pulse Oximetry: 99 (RA) Pulse Ox Interpretation: Normal Progress Note: Blood work and urine sent. Patient started on IV fluids, 4 mg Zofran, and 20 mg Pepcid. Against Medical Advice - AMA Patient Left Against Medical Advice: The patient declines admission to the hospital and wishes to leave the Emergency Department. This action is against my medical advice. This decision was made with informed refusal. The patient was told that admission to the hospital is necessary. Explanation of the reasons why were discussed. The risks of leaving were explained to the patient and include, but are not limited to, worsening of known or currently unknown conditions, permanent disability and from undiagnosed or untreated conditions. The patient has the capacity to make this informed decision and understands my explanation of the current medical problem and risks of leaving. The patient voluntarily accepts these risks and signed an AMA form documenting our conversation. The patient was given the opportunity to ask questions and reconsider. The patient was encouraged to return to the Emergency Department at any time for further care. Disposition Counseled Patient/Family Regarding: Studies Performed, Diagnosis - Disposition Disposition: AGAINST MEDICAL ADVICE Disposition Time: 21:29 Condition: FAIR Instructions: Alcohol Abuse and Alcoholism (DC), Acute Abdomen (Belly Pain), Adult (DC) Forms: [employer] (Lao) - Clinical Impression Clinical Impression: Alcohol intoxication, Abdominal pain - Scribe Statement The provider has reviewed the documentation as recorded by the Scribe (Sol Beltran) Provider Attestation: All medical record entries made by the Scribe were at my direction and personally dictated by me. I have reviewed the chart and agree that the record accurately reflects my personal performance of the history, physical exam, medical decision making, and the department course for this patient. I have also personally directed, reviewed, and agree with the discharge instructions and disposition.
[2018-01-18 21:42] LABS: BASO # 0.1 K/uL (0.0-0.2); BASO % 0.9 % (0.0-2.0); EOS % 0.2 % (0.0-4.0); HEMOGLOBIN 10.3 g/dL (11.0-16.0); LYMPH # 1.9 K/uL (1.0-4.3); LYMPH % 21.7 % (20.0-40.0); MEAN CORPUSCULAR HEMOGLOBIN 24.6 pg (27.0-31.0); MEAN CORPUSCULAR HGB CONC 32.5 g/dL (33.0-37.0); MEAN PLATELET VOLUME 7.5 fL (7.2-11.7); MONO # 0.5 K/uL (0.0-0.8); MONO % 5.4 % (0.0-10.0); NEUT # 6.2 K/uL (1.8-7.0); NEUT % 71.8 % (50.0-75.0); NRBC % 0.1 % (0.0-2.0); RBC 4.18 Mil/uL (3.80-5.20); RED CELL DISTRIBUTION WIDTH 19.9 % (11.5-14.5); WHITE BLOOD COUNT 8.6 K/uL (4.8-10.8)
[2018-01-18 21:43] LABS: MEAN CELL VOLUME 75.7 fL (81.0-99.0)
[2018-01-18 21:51] LABS: PROTHROMBIN TIME 11.1 SECONDS (9.7-12.2)
[2018-01-18 22:01] LABS: VENOUS BLOOD GAS BASE EXCESS -12.4 mmol/L (0.0-2.0); VENOUS BLOOD GAS PCO2 26 mmHg (40-60); VENOUS BLOOD GAS PO2 41 mm/Hg (30-55); VENOUS BLOOD PH 7.29 (7.32-7.43)
[2018-01-18 22:02] LABS: ALB/GLOB RATIO 1.6 (1.0-2.1); ALBUMIN 4.4 g/dL (3.5-5.0); ALT/SGPT 27 U/L (9-52); AST/SGOT 43 U/L (14-36); BLOOD UREA NITROGEN 6 mg/dL (7-17); CALCIUM 8.7 mg/dl (8.6-10.4); GFR NON-AFRICAN AMERICAN > 60; LIPASE 28 U/L (23-300)
[2018-01-18 22:05] VITALS: PULSE 110
[2018-01-18 22:40] LABS: SQUAMOUS EPITHIAL 1 /hpf (0-5); URINE BACTERIA RARE (<OCC); URINE BILIRUBIN NEGATIVE (NEGATIVE); URINE BLOOD 1+ (NEGATIVE); URINE CLARITY Clear (Clear); URINE COLOR Yellow (YELLOW); URINE GLUCOSE (UA) 3+ mg/dL (Normal); URINE LEUKOCYTE ESTERASE NEG Leu/uL (Negative); URINE PROTEIN 1+ mg/dL (NEGATIVE); URINE UROBILINOGEN NORMAL mg/dL (0.2-1.0)
[2018-01-18 22:43] LABS: HCG,QUALITATIVE URINE NEGATIVE (NEGATIVE)
== END 2018-01-18 22:39 | disposition left against medical advice (07) ==
LOC: C.ER 20:36
DX: F10.129 Alcohol abuse with intoxication, unspecified (principal); R10.84 Generalized abdominal pain; E11.9 Type 2 diabetes mellitus without complications; Z72.0 Tobacco use
CPT/HCPCS: 80053; 80320; 81001; 82140; 82803; 82948; 83690; 84703; 85025; 85610; 85730; 96374; 96375; 99284; J2405; J7030

== ENCOUNTER 2018-05-06 17:05 | Emergency (ER) | payer MEDICAID ==
[2018-05-06 17:20] VITALS: BMI 22.8
[2018-05-06 17:28] VITALS: TEMP 98
[2018-05-06] MEDS ORDERED: Sodium Chloride 0.9% 1,000 ML IV ONE ×3 (17:36→18:27)
--- NOTE | 2018-05-06 17:37 | C.PDOC ---
History Of Present Illness Patient presents to ED c/o generalized weakness, abdominal pain, nausea/vomiting x 3 days. She had near syncopal episode while being triaged, history is limited due to clinical condition. PMhx as per records - IDDM, pancreatitis, anxiety/depression, gastritis, PUD, seizure disorder, DKA Time Seen by Provider: 05/06/18 17:35 Chief Complaint (Nursing): Abdominal Pain History Per: Patient History/Exam Limitations: clinical condition Onset/Duration Of Symptoms: Days (3) Current Symptoms Are (Timing): Still Present Severity: Severe Past Medical History Reviewed: Historical Data, Nursing Documentation, Vital Signs Vital Signs: Last Vital Signs Temp 98.0 F 05/06/18 17:20 Pulse 134 H 05/06/18 17:20 Resp 28 H 05/06/18 17:20 BP 128/79 05/06/18 17:20 Pulse Ox 97 05/06/18 17:20 - Medical History PMH: Anemia, Anxiety, Arthritis, Asthma, Depression, Diabetes, Gastritis, Gastrointestinal Ulcer, Gall Bladder Disease, Pancreatitis, Seizures Surgical History: Cholecystectomy, Endoscopy - [facility] Procedures CLOSED ENDOSCOPIC BIOPSY OF LARGE INTESTINE (01/22/15) DETOXIFICATION SERVICES FOR SUBSTANCE ABUSE TREATMENT (09/09/17) ESOPHAGOGASTRODUODENOSCOPY [EGD] W/CLOSED BIOPSY (01/24/15) EXCISION OF STOMACH, ENDO, DIAGN (11/28/16) Family History: States: No Known Family Hx - Social History Hx Tobacco Use: Yes Hx Alcohol Use: Yes Hx Substance Use: No - Immunization History Hx Tetanus Toxoid Vaccination: Yes Hx Influenza Vaccination: No Hx Pneumococcal Vaccination: No Review Of Systems Constitutional: Positive for: Weakness. Negative for: Fever, Chills Cardiovascular: Negative for: Chest Pain, Palpitations Respiratory: Negative for: Cough, Shortness of Breath Gastrointestinal: Positive for: Nausea, Vomiting, Abdominal Pain. Negative for: Diarrhea Skin: Negative for: Rash Neurological: Negative for: Headache Physical Exam - Physical Exam Appears: In Acute Distress (weak appearing, actively vomiting) Skin: Normal Color, Warm, Dry Oral Mucosa: Dry Cardiovascular: Rhythm Regular (tachycardic ) Respiratory: Normal Breath Sounds (tachypnic), Accessory Muscle Use, No Rales, No Rhonchi, No Wheezing Gastrointestinal/Abdominal: Bowel Sounds, Soft, Tenderness (diffuse TTP), No Guarding, No Rebound Extremity: Normal ROM Neurological/Psych: Oriented x3 ED Course And Treatment - Laboratory Results Result Diagrams: 05/06/18 18:03 05/06/18 21:25 ECG: Interpreted By Me, Viewed By Me (sinus tachycardia 117 bpm, normal axis, T wave inversions III, V6, no acute ST changes) ECG Interpretation: Abnormal O2 Sat by Pulse Oximetry: 97 (ra) Pulse Ox Interpretation: Normal - Other Rad cxr X-Ray: Viewed By Me, Read By Radiologist Interpretation: Accession No. : [id number]. Patient Name / ID : DARIO KIRKLAND / [id number]. Exam Date : 05/06/2018 17:47:32 ( Approved ). Study Comment : Sex / Age : F / 38Y. Creator : Amalia Frazier. Dictator : Titus Soriano MD. Learning Consultant : Shank Maker : Titus Soriano MD. Approver2 : Report Date : 05/06/2018 17:50:16. My Comment : . Date of service: 05/06/2018. HISTORY: SOB. COMPARISON: Comparison made with prior chest radiograph 10/20/2017. FINDINGS: LUNGS: No active pulmonary disease. PLEURA: No significant pleural effusion identified, no pneumothorax apparent. CARDIOVASCULAR: No aortic atherosclerotic calcification present. Normal cardiac size. No pulmonary vascular congestion. OSSEOUS STRUCTURES: No significant abnormalities. VISUALIZED UPPER ABDOMEN: Normal. OTHER FINDINGS: None. IMPRESSION: No active disease. Progress Note: Blood wortk, EKG, CXR, UA, Upreg ordered and reviewed. Patient given IV NS bolus x3, IV pepcid, IV zofran. Blood work and clincial presentation consistent with diabetic ketoacidodid - IV insulin drip ordered. 7:45pm- Patient accepted by Dr. Hickey for ICU admission. 10:00pm- Patient is currently AAOx3, ambulating normally in the ED and clinically sober. She states she does not want to be admitted to the hospital, and wants to sign out against medical advice. Multiple attempts made by myself and nurse to get patient to change her mind. She understands she is currently in DKA, and her condition is serious. She states she is going to take a taxi to medical center. Patient has signed out against my medical advice, and understands that by doing so she risks worsening of her current condition and possible even . - Physician Consult Information Physician Contacted: Ismael Castro Outcome Of Conversation: Discussed patient with PMD, he agrees with admission for DKA to his service. Critical Care Time - Critical Care Note Total Time (in mins): 60 Documented critical care: time excludes all time spent performing seperately billable procedures. Disposition - Disposition Disposition: AGAINST MEDICAL ADVICE Disposition Time: 22:00 Condition: GUARDED Additional Instructions: GO TO [facility] IMMEDIATELY CALL AMBULANCE IF YOU FEEL ILL Instructions: Diabetic Ketoacidosis, Leaving Against Medical Advice Forms: [employer] (French) Print Language: CITIZEN OF [place] - Clinical Impression Clinical Impression: Diabetic ketoacidosis, Left against medical advice
--- NOTE | 2018-05-06 18:00 | RAD ---
Date of service: 05/06/2018 HISTORY: SOB COMPARISON: Comparison made with prior chest radiograph 10/20/2017. FINDINGS: LUNGS: No active pulmonary disease. PLEURA: No significant pleural effusion identified, no pneumothorax apparent. CARDIOVASCULAR: No aortic atherosclerotic calcification present. Normal cardiac size. No pulmonary vascular congestion. OSSEOUS STRUCTURES: No significant abnormalities. VISUALIZED UPPER ABDOMEN: Normal. OTHER FINDINGS: None. IMPRESSION: No active disease.
[2018-05-06 18:07] LABS: BASO # 0.1 K/uL (0.0-0.2); BASO % 1.3 % (0.0-2.0); LYMPH # 1.3 K/uL (1.0-4.3); LYMPH % 23.6 % (20.0-40.0); MEAN CORPUSCULAR HEMOGLOBIN 25.8 pg (27.0-31.0); MEAN CORPUSCULAR HGB CONC 31.8 g/dL (33.0-37.0); MEAN PLATELET VOLUME 8.6 fL (7.2-11.7); MONO # 0.3 K/uL (0.0-0.8); MONO % 4.8 % (0.0-10.0); NEUT % 70.3 % (50.0-75.0); NRBC % 0.3 % (0.0-2.0); RBC 5.08 Mil/uL (3.80-5.20); RED CELL DISTRIBUTION WIDTH 18.9 % (11.5-14.5); WHITE BLOOD COUNT 5.7 K/uL (4.8-10.8)
[2018-05-06 18:16] LABS: VENOUS BLOOD GAS BASE EXCESS -20.3 mmol/L (0.0-2.0); VENOUS BLOOD GAS PCO2 30 mmHg (40-60); VENOUS BLOOD GAS PO2 43 mm/Hg (30-55); VENOUS BLOOD PH 7.07 (7.32-7.43)
[2018-05-06 18:20] LABS: HEMOGLOBIN 13.1 g/dL (11.0-16.0); MEAN CELL VOLUME 81.3 fL (81.0-99.0)
[2018-05-06 18:30] LABS: CK-MB 2.23 ng/mL (0.0-3.38)
[2018-05-06 18:33] LABS: SQUAMOUS EPITHIAL 4 /hpf (0-5); URINE BACTERIA OCC (<OCC); URINE BILIRUBIN NEGATIVE (NEGATIVE); URINE BLOOD 2+ (NEGATIVE); URINE CLARITY Hazy (Clear); URINE COLOR Yellow (YELLOW); URINE GLUCOSE (UA) 3+ mg/dL (Normal); URINE LEUKOCYTE ESTERASE NEG Leu/uL (Negative); URINE PROTEIN 3+ mg/dL (NEGATIVE); URINE UROBILINOGEN NORMAL mg/dL (0.2-1.0)
[2018-05-06 18:34] LABS: HCG,QUALITATIVE URINE NEGATIVE (NEGATIVE)
[2018-05-06] MEDS ORDERED: Insulin Human Regular 100 UNIT in Sodium Chloride 0.9% 99 ML IV STA ×2 (18:52→19:35)
[2018-05-06 18:54] LABS: ALB/GLOB RATIO 1.7 (1.0-2.1); ALBUMIN 5.1 g/dL (3.5-5.0); ALT/SGPT 41 U/L (9-52); AST/SGOT 86 U/L (14-36); BLOOD UREA NITROGEN 11 mg/dL (7-17); CALCIUM 8.3 mg/dl (8.6-10.4); GFR NON-AFRICAN AMERICAN 50; LIPASE 38 U/L (23-300)
[2018-05-06 18:54] LABS: BARBITURATES, UR NEGATIVE (NEGATIVE); BENZODIAZEPINES, UR NEGATIVE (NEGATIVE); OPIATES, UR NEGATIVE (NEGATIVE); PHENCYCLIDINE, UR NEGATIVE (NEGATIVE)
[2018-05-06] MEDS ORDERED: Potassium Chl 20 mEq in NS 1,000 ML IV SCH (19:45)
[2018-05-06] MEDS ORDERED: Lactated Ringer's 1,000 ML IV ONE (20:30)
[2018-05-06] MEDS ORDERED: Morphine 4 MG/ML VIAL ONE (20:37)
[2018-05-06] MEDS ORDERED: Lactated Ringer's 1,000 ML ONE (20:52)
[2018-05-06 21:33] VITALS: BP 119/51; PULSE 126; RESP 16
[2018-05-06 21:48] LABS: BLOOD UREA NITROGEN 8 mg/dL (7-17); CALCIUM 5.5 mg/dl (8.6-10.4); GFR NON-AFRICAN AMERICAN > 60
[2018-05-06 22:00] LABS: VENOUS BLOOD GAS BASE EXCESS -21.7 mmol/L (0.0-2.0); VENOUS BLOOD GAS PCO2 29 mmHg (40-60); VENOUS BLOOD GAS PO2 34 mm/Hg (30-55); VENOUS BLOOD PH 7.04 (7.32-7.43)
[2018-05-06 22:03] VITALS: O2SAT 97
--- NOTE | 2018-05-09 09:30 | CARD ---
APPROVED REPORT Date of service: 05/06/2018 EKG Measurement Heart [id number] <Conclusion> Sinus tachycardia Possible Left atrial enlargement Possible Lateral infarct, age undetermined Abnormal ECG
== END 2018-05-06 21:53 | disposition left against medical advice (07) ==
LOC: C.ER 17:05 → UNDOADMIN 19:24 → C.9I 19:24 → C.ER 21:53 → C.9E 21:56 → C.9I 21:56
DX: E11.10 Type 2 diabetes mellitus with ketoacidosis without coma (principal); Z79.4 Long term (current) use of insulin; Z72.0 Tobacco use
CPT/HCPCS: 71045; 80053; 80320; 80324; 80345; 80346; 80349; 80353; 80358; 80361; 81001; 82009; 82550; 82553; 82803; 82948; 83690; 83930; 83992; 84484; 84703; 85025; 87040; 87149; 87181; 87205; 93005; 96361; 96374; 96375; 99285; J2270; J2405; J2765; J7030; J7120

== ENCOUNTER 2018-07-15 18:19 | Inpatient (IN) | payer MEDICAID ==
[2018-07-15 18:28] VITALS: BMI 23.6
[2018-07-15] MEDS ORDERED: Sodium Chloride 0.9% 1,000 ML IV ONE ×2 (18:40→20:52)
[2018-07-15] MEDS ORDERED: (Novolin R) Insulin Human Regular 100 units/ml vial IVP STA (19:21)
[2018-07-15 19:29] LABS: HEMOGLOBIN 10.4 g/dL (11.0-16.0); MEAN CORPUSCULAR HGB CONC 30.4 g/dL (33.0-37.0)
[2018-07-15] MEDS ORDERED: Sodium Chloride 0.9% 1,000 ML ONE (19:29)
[2018-07-15] MEDS ORDERED: (Novolin R) Insulin Human Regular 100 units/ml vial ONE (19:30)
[2018-07-15 19:39] LABS: MEAN CORPUSCULAR HEMOGLOBIN 25.5 pg (27.0-31.0); RBC 4.06 Mil/uL (3.80-5.20); RED CELL DISTRIBUTION WIDTH 21.9 % (11.5-14.5); WHITE BLOOD COUNT 7.8 K/uL (4.8-10.8)
[2018-07-15 19:42] LABS: MEAN CELL VOLUME 83.9 fL (81.0-99.0)
[2018-07-15 19:56] LABS: SQUAMOUS EPITHIAL 2 /hpf (0-5); URINE BACTERIA FEW (<OCC); URINE BILIRUBIN NEGATIVE (NEGATIVE); URINE BLOOD 3+ (NEGATIVE); URINE COLOR Yellow (YELLOW); URINE GLUCOSE (UA) 3+ mg/dL (Normal); URINE LEUKOCYTE ESTERASE NEG Leu/uL (Negative); URINE PROTEIN 2+ mg/dL (NEGATIVE); URINE UROBILINOGEN NORMAL mg/dL (0.2-1.0)
[2018-07-15 19:58] LABS: HCG,QUALITATIVE URINE NEGATIVE (NEGATIVE); URINE CLARITY Hazy (Clear)
[2018-07-15 20:09] LABS: BARBITURATES, UR NEGATIVE (NEGATIVE); BENZODIAZEPINES, UR NEGATIVE (NEGATIVE); OPIATES, UR NEGATIVE (NEGATIVE); PHENCYCLIDINE, UR NEGATIVE (NEGATIVE)
[2018-07-15 20:38] LABS: BASO % 0.6 % (0.0-2.0); EOS % 0.1 % (0.0-4.0); LYMPH # 2.1 K/uL (1.0-4.3); LYMPH % 27.3 % (20.0-40.0); MEAN PLATELET VOLUME 8.9 fL (7.2-11.7); MONO # 0.3 K/uL (0.0-0.8); MONO % 3.4 % (0.0-10.0); NEUT # 5.3 K/uL (1.8-7.0); NEUT % 68.6 % (50.0-75.0); NRBC % 0.5 % (0.0-2.0)
[2018-07-15 20:46] LABS: ALB/GLOB RATIO 2.1 (1.0-2.1); ALT/SGPT 40 U/L (9-52); AST/SGOT 104 U/L (14-36); BLOOD UREA NITROGEN 7 mg/dL (7-17); CALCIUM 8.5 mg/dl (8.6-10.4); GFR NON-AFRICAN AMERICAN > 60; LIPASE 28 U/L (23-300)
--- NOTE | 2018-07-15 21:27 | C.PDOC ---
History Of Present Illness 38 year old female presents to the emergency department, brought in by ambulance from home with complaints of abdominal pain. Patient reports recent high blood sugar due to not having insulin recently. Patient reports that she was kicked out of her own house. She admits to drinking alcohol, and has multiple presentations for alcohol abuse, chronic pain issues, and DKA. Time Seen by Provider: 07/15/18 18:35 Chief Complaint (Nursing): Abdominal Pain History Per: Patient History/Exam Limitations: no limitations Onset/Duration Of Symptoms: Days Current Symptoms Are (Timing): Still Present Current Diabetic Medications: Insulin Causative (Exacerbating) Factor(s): Missed Taking Medication Past Medical History Reviewed: Historical Data, Nursing Documentation, Vital Signs Vital Signs: Last Vital Signs Temp 99.2 F 07/15/18 18:23 Pulse 110 H 07/15/18 18:23 Resp 20 07/15/18 18:23 BP 162/94 H 07/15/18 18:23 Pulse Ox 100 07/15/18 18:23 - Medical History PMH: Anemia, Anxiety, Arthritis, Asthma, Depression, Diabetes, Gastritis, Gastrointestinal Ulcer, Gall Bladder Disease, Pancreatitis, Seizures Denies: Chronic Kidney Disease Surgical History: Cholecystectomy, Endoscopy - [facility] Procedures CLOSED ENDOSCOPIC BIOPSY OF LARGE INTESTINE (01/22/15) DETOXIFICATION SERVICES FOR SUBSTANCE ABUSE TREATMENT (09/09/17) ESOPHAGOGASTRODUODENOSCOPY [EGD] W/CLOSED BIOPSY (01/24/15) EXCISION OF STOMACH, ENDO, DIAGN (11/28/16) Family History: States: No Known Family Hx - Social History Hx Tobacco Use: Yes Hx Alcohol Use: Yes Hx Substance Use: No - Immunization History Hx Tetanus Toxoid Vaccination: Yes Hx Influenza Vaccination: No Hx Pneumococcal Vaccination: No Review Of Systems Except As Marked, All Systems Reviewed And Found Negative. Constitutional: Negative for: Fever, Chills Gastrointestinal: Positive for: Abdominal Pain Physical Exam - Physical Exam Appears: Non-toxic, In Acute Distress (moderate) Skin: Warm, Dry Head: Atraumatic, Normacephalic Eye(s): bilateral: Normal Inspection, PERRL, EOMI Nose: Normal Oral Mucosa: Dry, No Other (acetone smell to breath) Neck: Normal, Supple Chest: Symmetrical, No Tenderness Cardiovascular: Rhythm Regular, No Murmur Respiratory: Normal Breath Sounds, No Rales, No Rhonchi, No Wheezing, No Other (tachypnea) Gastrointestinal/Abdominal: Soft, Tenderness (vaguely, diffusely tender) Extremity: Normal ROM Neurological/Psych: Oriented x3, Normal Speech, Normal Cognition ED Course And Treatment - Laboratory Results Result Diagrams: 07/15/18 19:23 07/15/18 20:23 Lab Results: Total Bilirubin 0.9 mg/dL (0.2-1.3) 07/15/18 20:23 AST 104 U/L (14-36) H D 07/15/18 20:23 ALT 40 U/L (9-52) 07/15/18 20:23 Alkaline Phosphatase 137 U/L (38-126) H 07/15/18 20:23 Total Protein 7.4 g/dL (6.3-8.3) 07/15/18 20:23 Albumin 5.0 g/dL (3.5-5.0) 07/15/18 20:23 Globulin 2.4 gm/dL (2.2-3.9) 07/15/18 20:23 Albumin/Globulin Ratio 2.1 (1.0-2.1) 07/15/18 20:23 Lipase 28 U/L (23-300) 07/15/18 20:23 Urine Color Yellow (YELLOW) 07/15/18 19:48 Urine Clarity Hazy (Clear) 07/15/18 19:48 Urine pH 6.0 (5.0-8.0) 07/15/18 19:48 Ur Specific [place] 1.020 (1.003-1.030) 07/15/18 19:48 Urine Protein 2+ mg/dL (NEGATIVE) H 07/15/18 19:48 Urine Glucose (UA) 3+ mg/dL (Normal) H 07/15/18 19:48 Urine Ketones 2+ mg/dL (NEGATIVE) H 07/15/18 19:48 Urine Blood 3+ (NEGATIVE) H 07/15/18 19:48 Urine Nitrate Negative (NEGATIVE) 07/15/18 19:48 Urine Bilirubin Negative (NEGATIVE) 07/15/18 19:48 Urine Urobilinogen Normal mg/dL (0.2-1.0) 07/15/18 19:48 Ur Leukocyte Esterase Neg Mary/uL (Negative) 07/15/18 19:48 Urine WBC (Auto) 15 /hpf (0-5) H 07/15/18 19:48 Urine RBC (Auto) 51 /hpf (0-3) H 07/15/18 19:48 Ur Squamous Epith Cells 2 /hpf (0-5) 07/15/18 19:48 Urine Bacteria Few (<OCC) H 07/15/18 19:48 Urine HCG, Qual Negative (NEGATIVE) 07/15/18 19:48 Urine HCG, Qual Negative (NEGATIVE) 07/15/18 19:48 Lab Interpretation: Abnormal (ETOH 107 H, urine +2 ketones) Urine POC: Negative ECG: Interpreted By Me ECG Rhythm: Sinus Rhythm ECG Interpretation: Normal Rate From EC O2 Sat by Pulse Oximetry: 100 (RA) Pulse Ox Interpretation: Normal - Radiology CXR: Interpreted by Me CXR Interpretation: Yes: No Acute Disease Reevaluation Time: 21:25 Reassessment Condition: Unchanged - Physician Consult Information Outcome Of Conversation: 2099: d/w Dr Farias- ICU, ok to ICU. 2114: d/w Dr. Castro, PMD, ok to admit Medical Decision Making Medical Decision Making: hypergycemia, bicarb 10 c/w DKA belly pain improved with IVF's Alcohol abuse despite pain and vomiting pt's ETOH 109 consider CIWA protocol Avoid Narcotics for abd pain Plan: EKG CHEmistry CBC XR Obstructive Series Glucose POC Insulin NaCl IV Fluids Toradol 30mg IVP HCG Qualitative Urine Urinalysis Disposition Doctor Will See Patient In The: Hospital Counseled Patient/Family Regarding: Studies Performed, Diagnosis - Disposition Disposition: HOSPITALIZED Disposition Time: 21:27 Condition: GOOD - Clinical Impression Clinical Impression: Alcoholic ketoacidosis, Alcohol intoxication - Scribe Statement The provider has reviewed the documentation as recorded by the Scribe (Elijah Tramaine) Provider Attestation: All medical record entries made by the Scribe were at my direction and personally dictated by me. I have reviewed the chart and agree that the record accurately reflects my personal performance of the history, physical exam, medical decision making, and the department course for this patient. I have also personally directed, reviewed, and agree with the discharge instructions and disposition.
--- NOTE | 2018-07-15 23:52 | CP.PCM.CON ---
History of Present Illness - History of Present Illness History of Present Illness: Chief complaint: Abdominal pain, nausea vomiting HPI: Patient is a 38-year-old female with a history of alcoholism, alcoholic pancreat itis, diabetes noncompliance came to the emergency room with the complaining of abdominal pain, nausea and vomiting for 2 days duration. Patient complained of worsening vomiting since yesterday, mostly bilious, associated with occasional dark blood in the vomitus. Patient claims that she was not drinking alcohol but last drink she had a day before yesterday. But today her alcohol level was noted to be elevated. In the past the patient had multiple hospitalization with the alcoholism, pancreatitis. She is also diagnosed with diabetes but noncompliant with the medication Past medical history: Hypertension, diabetes, gastritis, pancreatitis, paralytic gastroparesis, neuropathy. Surgical history cholecystectomy Allergies no known drug allergy Family history noncontributory Patient is a smoker, she is also uses alcohol denies any drugs Review of system noted from the chart. Patient is currently complaining of some headache. Epigastric discomfort noted. Abdominal pain present. Nausea and vomiting noted. Patient pain usually improves with morphine and Dilaudid as per patient. No diarrhea noted. Denies any leg swelling On examination: Vital signs are stable. Mild elevated blood pressure noted. Chest good air entry Heart sounds are regular Abdomen soft, but tenderness mid epigastric area noted Bowel sounds are normal. No pedal edema noted. 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 Elevated alcohol level noted. Lipase level is normal. Chest x-ray nonspecific. Abdominal series of x-rays nonspecific. Assessment and recommendation: Patient is a 38-year-old female admitted with most likely alcoholic ketoacidosis. Diabetes uncontrolled. Most likely diabetic ketoacidosis also. Underlying pancreatitis cannot be ruled out. Sonogram of the abdomen recommended. We will continue the current treatment. IV fluid glucose monitoring insulin coverage pain management will be keep the patient n.p.o. and will follow the patient Past Patient History - Infectious Disease Hx of Infectious Diseases: None - Past Medical History & Family History Past Medical History?: Yes - Past Social History Smoking Status: Light Smoker < 10 Cigarettes Daily - CARDIAC Hx Cardiac Disorders: No - PULMONARY Hx Respiratory Disorders: Yes Hx Asthma: Yes - NEUROLOGICAL Hx Neurological Disorder: Yes Hx Seizures: Yes - HEENT Hx HEENT Problems: No - RENAL Hx Chronic Kidney Disease: No - ENDOCRINE/METABOLIC Hx Endocrine Disorders: Yes Hx Diabetes Mellitus Type 1: Yes Other/Comment: Diabetic Ketoacidosis - 08/2017 - HEMATOLOGICAL/ONCOLOGICAL Hx Blood Disorders: Yes Hx Anemia: Yes - INTEGUMENTARY Hx Dermatological Problems: No - MUSCULOSKELETAL/RHEUMATOLOGICAL Hx Musculoskeletal Disorders: Yes Hx Arthritis: Yes Hx Falls: No - GASTROINTESTINAL Hx Gastrointestinal Disorders: Yes Hx Gall Bladder Disease: Yes Hx Gastritis: Yes Hx Pancreatitis: Yes - GENITOURINARY/GYNECOLOGICAL Hx Genitourinary Disorders: No - PSYCHIATRIC Hx Psychophysiologic Disorder: Yes Hx Anxiety: Yes Hx Depression: Yes - SURGICAL HISTORY Hx Surgeries: Yes Hx Cholecystectomy: Yes - ANESTHESIA Hx Anesthesia: Yes Hx Anesthesia Reactions: No Hx Malignant Hyperthermia: No Has any member of the family had a problem w/ anesthesia?: No Meds Allergies/Adverse Reactions: Allergies Allergy/AdvReac Type Severity Reaction Status Date / Time shellfish derived Allergy ANAPHYLAXIS Verified 07/15/18 18:28 - Medications Medications: Current Medications Docusate Sodium (Colace) 100 mg PO DAILY [facility] Sodium Chloride (Sodium Chloride 0.9%) 1,000 mls @ 150 mls/hr IV .Q6H40M [facility] Insulin Human Regular (Novolin R) 0 unit SC Q4 ANUP; Protocol Morphine Sulfate (Morphine) 2 mg SC Q4 PRN PRN Reason: Pain, moderate (4-7) Pantoprazole Sodium (Protonix Inj) 40 mg IVP Q12H [facility]UP Sennosides (Senokot Tab) 8.6 mg PO DAILY [facility] Results - Vital Signs Recent Vital Signs: Last Vital Signs Temp 98.2 F 07/15/18 22:10 Pulse 84 07/15/18 22:10 Resp 13 07/15/18 22:10 BP 147/72 07/15/18 22:10 Pulse Ox 100 07/15/18 22:10 - Labs Result Diagrams: 07/15/18 19:23 07/15/18 20:23 Labs: Laboratory Results - last 24 hr 07/15/18 07/15/18 07/15/18 18:55 19:23 19:48 WBC 7.8 RBC 4.06 Hgb 10.4 L D Hct 34.1 MCV 83.9 D MCH 25.5 L MCHC 30.4 L RDW 21.9 H Plt Count 183 D MPV 8.9 Neut % (Auto) 68.6 Lymph % (Auto) 27.3 Tift % (Auto) 3.4 Eos % (Auto) 0.1 Baso % (Auto) 0.6 Neut # (Auto) 5.3 Lymph # (Auto) 2.1 Tift # (Auto) 0.3 Eos # (Auto) 0.0 Baso # (Auto) 0.0 Sodium Potassium Chloride Carbon Dioxide Anion Gap BUN Creatinine Est GFR ( Amer) Est GFR (Non-Af Amer) POC Glucose (mg/dL) 395 H Random Glucose Calcium Total Bilirubin AST ALT Alkaline Phosphatase Total Protein Albumin Globulin Albumin/Globulin Ratio Lipase Urine Color Yellow Urine Clarity Hazy Urine pH 6.0 Ur Specific [place] 1.020 Urine Protein 2+ H Urine Glucose (UA) 3+ H Urine Ketones 2+ H Urine Blood 3+ H Urine Nitrate Negative Urine Bilirubin Negative Urine Urobilinogen Normal Ur Leukocyte Esterase Neg Urine WBC (Auto) 15 H Urine RBC (Auto) 51 H Ur Squamous Epith Cells 2 Urine Bacteria Few H Urine HCG, Qual Negative Urine Opiates Screen Urine Methadone Screen Ur Barbiturates Screen Ur Phencyclidine Scrn Ur Amphetamines Screen U Benzodiazepines Scrn U Oth Cocaine Metabols U Cannabinoids Screen Alcohol, Quantitative B-Hydroxybutyrate 07/15/18 07/15/18 07/15/18 19:48 20:23 21:08 WBC RBC Hgb Hct MCV MCH MCHC RDW Plt Count MPV Neut % (Auto) Lymph % (Auto) Tift % (Auto) Eos % (Auto) Baso % (Auto) Neut # (Auto) Lymph # (Auto) Tift # (Auto) Eos # (Auto) Baso # (Auto) Sodium 133 Potassium 3.8 Chloride 98 Carbon Dioxide 10 L* D Anion Gap 29 H BUN 7 Creatinine 0.8 Est GFR ( Amer) > 60 Est GFR (Non-Af Amer) > 60 POC Glucose (mg/dL) Random Glucose 237 H Calcium 8.5 L Total Bilirubin 0.9 AST 104 H D ALT 40 Alkaline Phosphatase 137 H Total Protein 7.4 Albumin 5.0 Globulin 2.4 Albumin/Globulin Ratio 2.1 Lipase 28 Urine Color Urine Clarity Urine pH Ur Specific [place] Urine Protein Urine Glucose (UA) Urine Ketones Urine Blood Urine Nitrate Urine Bilirubin Urine Urobilinogen Ur Leukocyte Esterase Urine WBC (Auto) Urine RBC (Auto) Ur Squamous Epith Cells Urine Bacteria Urine HCG, Qual Urine Opiates Screen Negative Urine Methadone Screen Negative Ur Barbiturates Screen Negative Ur Phencyclidine Scrn Negative Ur Amphetamines Screen Negative U Benzodiazepines Scrn Negative U Oth Cocaine Metabols Negative U Cannabinoids Screen Negative Alcohol, Quantitative 107 H B-Hydroxybutyrate 7.42 H 07/15/18 21:18 WBC RBC Hgb Hct MCV MCH MCHC RDW Plt Count MPV Neut % (Auto) Lymph % (Auto) Tift % (Auto) Eos % (Auto) Baso % (Auto) Neut # (Auto) Lymph # (Auto) Tift # (Auto) Eos # (Auto) Baso # (Auto) Sodium Potassium Chloride Carbon Dioxide Anion Gap BUN Creatinine Est GFR ( Amer) Est GFR (Non-Af Amer) POC Glucose (mg/dL) 203 H Random Glucose Calcium Total Bilirubin AST ALT Alkaline Phosphatase Total Protein Albumin Globulin Albumin/Globulin Ratio Lipase Urine Color Urine Clarity Urine pH Ur Specific [place] Urine Protein Urine Glucose (UA) Urine Ketones Urine Blood Urine Nitrate Urine Bilirubin Urine Urobilinogen Ur Leukocyte Esterase Urine WBC (Auto) Urine RBC (Auto) Ur Squamous Epith Cells Urine Bacteria Urine HCG, Qual Urine Opiates Screen Urine Methadone Screen Ur Barbiturates Screen Ur Phencyclidine Scrn Ur Amphetamines Screen U Benzodiazepines Scrn U Oth Cocaine Metabols U Cannabinoids Screen Alcohol, Quantitative B-Hydroxybutyrate
[2018-07-16 00:55] LABS: ALB/GLOB RATIO 1.8 (1.0-2.1); ALBUMIN 4.2 g/dL (3.5-5.0); ALT/SGPT 30 U/L (9-52); AST/SGOT 112 U/L (14-36); BLOOD UREA NITROGEN 7 mg/dL (7-17); CALCIUM 8.7 mg/dl (8.6-10.4); GFR NON-AFRICAN AMERICAN > 60; LIPASE 24 U/L (23-300)
[2018-07-16 01:18] LABS: EOS # 0.1 K/uL (0.0-0.7); EOS % 1.5 % (0.0-4.0); HEMOGLOBIN 9.6 g/dL (11.0-16.0); MEAN CELL VOLUME 83.4 fL (81.0-99.0); MEAN CORPUSCULAR HEMOGLOBIN 25.5 pg (27.0-31.0); MEAN CORPUSCULAR HGB CONC 30.6 g/dL (33.0-37.0); MEAN PLATELET VOLUME 9.4 fL (7.2-11.7); MONO # 0.5 K/uL (0.0-0.8); MONO % 6.8 % (0.0-10.0); NEUT # 4.8 K/uL (1.8-7.0); NEUT % 68.3 % (50.0-75.0); NRBC % 0.3 % (0.0-2.0); RBC 3.76 Mil/uL (3.80-5.20); RED CELL DISTRIBUTION WIDTH 22.2 % (11.5-14.5)
[2018-07-16 01:29] LABS: BASO # 0.1 K/uL (0.0-0.2); BASO % 0.7 % (0.0-2.0); LYMPH % 23.6 % (20.0-40.0)
[2018-07-16 01:30] LABS: LYMPH # 1.6 K/uL (1.0-4.3)
[2018-07-16] MEDS: (Novolin R) Insulin Human Regular 100 units/ml vial SC SCH ×7 (04:02→21:32)
[2018-07-16 05:56] LABS: HEMOGLOBIN 9.3 g/dL (11.0-16.0); MEAN CELL VOLUME 81.7 fL (81.0-99.0); MEAN CORPUSCULAR HGB CONC 31.8 g/dL (33.0-37.0); RBC 3.57 Mil/uL (3.80-5.20); RED CELL DISTRIBUTION WIDTH 21.2 % (11.5-14.5); WHITE BLOOD COUNT 5.7 K/uL (4.8-10.8)
[2018-07-16 06:22] LABS: ALBUMIN 4.1 g/dL (3.5-5.0); ALT/SGPT 40 U/L (9-52); AST/SGOT 104 U/L (14-36); BLOOD UREA NITROGEN 8 mg/dL (7-17); CALCIUM 8.4 mg/dl (8.6-10.4); GFR NON-AFRICAN AMERICAN > 60
[2018-07-16] MEDS: Sodium Chloride 0.9% 1,000 ML IV SCH ×2 (06:25)
[2018-07-16] MEDS ORDERED: Dextrose 5%/0.9% NS 1,000 ML IV SCH (07:30)
[2018-07-16] MEDS: Magnesium Sulfate 1 gm in D5W 1 GM/100 ML BAG IVPB SCH ×2 (07:51→09:46)
[2018-07-16] MEDS ORDERED: Potassium Phosphate 15 MMOLE in Dextrose 5% In Water 250 ML IVPB ONE ×2 (08:00→14:00)
[2018-07-16] MEDS ORDERED: Mag&Al/Simet/Diphen/Lido 237 ML KIT PO ONE (09:29)
[2018-07-16] MEDS ORDERED: Alum-Mag Hydrox-Simethicone Susp (30 mL) PO PRN (09:29)
--- NOTE | 2018-07-16 09:36 | CP.PCM.PN ---
Subjective - Date & Time of Evaluation Date of Evaluation: 07/16/18 Time of Evaluation: 09:36 - Subjective Subjective: Patient presents to [facility] (formerly [facility]3] for abdominal pain and admitted to ICU Objective - Vital Signs/Intake and Output Vital Signs (last 24 hours): Temp Pulse Resp BP Pulse Ox 98.2 F 121 H 24 143/107 H 100 07/16/18 08:00 07/16/18 08:01 07/16/18 08:01 07/16/18 08:01 07/16/18 08:00 Intake and Output: 07/16/18 07/16/18 06:59 18:59 Intake Total 1050 292.5 Output Total 400 300 Balance 650 -7.5 - Medications Medications: Current Medications Al Hydrox/Mg Hydrox/Simethicone (Maalox Plus 30 Ml) 30 ml PO Q6H PRN PRN Reason: Indigestion / Heartburn Docusate Sodium (Colace) 100 mg PO DAILY [facility] Folic Acid (Folic Acid) 1 mg PO DAILY [facility] Potassium Phosphate 15 mmole/ (Dextrose) 255 mls @ 42.5 mls/hr IVPB ONCE ONE Stop: 07/16/18 13:59 Last Admin: 07/16/18 08:18 Dose: 42.5 mls/hr Potassium Phosphate 15 mmole/ (Dextrose) 255 mls @ 42.5 mls/hr IVPB ONCE ONE Stop: 07/16/18 19:59 Dextrose/Sodium Chloride (Dextrose 5%/0.9% Ns 1000 Ml) 1,000 mls @ 100 mls/hr IV .Q10H [facility] Last Admin: 07/16/18 07:35 Dose: 100 mls/hr Insulin Human Regular (Novolin R) 0 unit SC Q4 [facility]; Protocol Last Admin: 07/16/18 07:55 Dose: 2 u Morphine Sulfate (Morphine) 2 mg IVP Q4 PRN PRN Reason: Pain, severe (8-10) Last Admin: 07/16/18 08:42 Dose: 2 mg Multivitamins/Minerals (Therapeutic-M Tab) 1 tab PO 0800 [facility] Ondansetron HCl (Zofran Inj) 4 mg IVP Q6H PRN PRN Reason: Nausea/Vomiting Last Admin: 07/16/18 00:10 Dose: 4 mg Pantoprazole Sodium (Protonix Inj) 40 mg IVP Q12H [facility] Last Admin: 07/16/18 00:00 Dose: 40 mg Saliva Substitute (First Magic Mouthwash) 30 ml PO ONCE ONE Stop: 07/16/18 09:30 Sennosides (Senokot Tab) 8.6 mg PO DAILY [facility] Thiamine HCl (Vitamin B1 Tab) 100 mg PO BID [facility] - Labs Labs: 07/16/18 05:50 07/16/18 05:50 - Head Exam Head Exam: ATRAUMATIC, NORMAL INSPECTION, NORMOCEPHALIC - Eye Exam Eye Exam: EOMI Pupil Exam: NORMAL ACCOMODATION, PERRL - ENT Exam ENT Exam: Mucous Membranes Moist - Respiratory Exam Respiratory Exam: Clear to Ausculation Bilateral, NORMAL BREATHING PATTERN. absent: Rales, Rhonchi, Wheezes, Stridor - Cardiovascular Exam Cardiovascular Exam: REGULAR RHYTHM, +S1, +S2 - GI/Abdominal Exam GI & Abdominal Exam: Tenderness, Normal Bowel Sounds - Extremities Exam Extremities Exam: Full ROM, Normal Inspection - Neurological Exam Neurological Exam: Alert, Awake, Oriented x3 - Skin Skin Exam: Normal Color, Warm Assessment and Plan - Assessment and Plan (Free Text) Assessment: Abdominal PAin: possible DKA/alcoholic ketosis, repeat ketone and cmp -check HBa1c and TSH -Anion gamp metabolic acidosis: resolved with IV hydration abdominal pain-check CT abd/pelvis -continue dvt.pud ppx -no indication for insulin drip currently -possible opioid seeker Patient remains hemodynamically stable
[2018-07-16] MEDS: Multivitamin With Minerals Tab PO SCH (10:32)
[2018-07-16 10:43] LABS: ALB/GLOB RATIO 1.8 (1.0-2.1); ALBUMIN 3.9 g/dL (3.5-5.0); ALT/SGPT 35 U/L (9-52); AST/SGOT 104 U/L (14-36); BLOOD UREA NITROGEN 8 mg/dL (7-17); CALCIUM 8.4 mg/dl (8.6-10.4); GFR NON-AFRICAN AMERICAN > 60
--- NOTE | 2018-07-16 11:35 | RAD ---
Date of service: 05/06/2018 07/15/2018 PROCEDURE: Radiographs of the chest and abdomen (obstructive series) HISTORY: Abdominal pain and vomiting. COMPARISON: Comparison chest 05/06/2018. Comparison also made with CT scan abdomen pelvis 09/09/2017 TECHNIQUE: AP radiograph of the chest, with upright and supine radiographs of the abdomen. FINDINGS: CHEST: Lungs: Clear. Cardiovascular: Normal size heart. No pulmonary vascular congestion. No aortic atherosclerotic calcification present Pleura: No pleural fluid. No pneumothorax. Other findings: None. ABDOMEN AND PELVIS: Bowel: Unremarkable bowel gas pattern. No evidence of mechanical obstruction. Free air: None. Bones: Unremarkable. Other findings: There are small pancreatic calcifications again seen consistent with sequela of chronic pancreatitis.. Metallic clips right upper quadrant gliotic consistent prior cholecystectomy. IMPRESSION: Unremarkable radiographs of chest.. No evidence of mechanical bowel obstruction. Findings suggest mild constipation. Cholecystectomy. Pancreatic calcifications consistent with chronic pancreatitis.
[2018-07-16] MEDS ORDERED: Iohexol 240 (50 ml) PO ONE (12:00)
[2018-07-16] MEDS ORDERED: Lactated Ringer's 1,000 ML IV SCH (16:00)
--- NOTE | 2018-07-16 16:04 | CT ---
Date of service: 07/16/2018 PROCEDURE: CT Abdomen and Pelvis without intravenous contrast HISTORY: abdominal pain COMPARISON: CT scan of the abdomen and pelvis dated 09/09/2017. TECHNIQUE: Contiguous images were obtained from the domes of the diaphragms to the upper thighs without the administration of intravenous contrast. Oral contrast was administered. Radiation dose: Total exam DLP = 242.71 mGy-cm. This CT exam was performed using one or more of the following dose reduction techniques: Automated exposure control, adjustment of the mA and/or kV according to patient size, and/or use of iterative reconstruction technique. FINDINGS: LOWER THORAX: Unremarkable. LIVER: Diffuse hepatic steatosis. No gross lesion or ductal dilatation. GALLBLADDER AND BILE DUCTS: Pneumobilia redemonstrated. Prior cholecystectomy. PANCREAS: Extensive calcifications within the pancreas consistent chronic pancreatitis. No gross lesion or ductal dilatation. SPLEEN: Unremarkable. ADRENALS: Unremarkable. No mass. KIDNEYS AND URETERS: Unremarkable. No hydronephrosis. No solid mass. VASCULATURE: Unremarkable. No aortic aneurysm. No aortic atherosclerotic calcification or mural plaque present. BOWEL: Unremarkable. No obstruction. No gross mural thickening. APPENDIX: Unremarkable. Normal appendix. PERITONEUM: Unremarkable. No free fluid. No free air. LYMPH NODES: Unremarkable. No enlarged lymph nodes. BLADDER: Unremarkable. REPRODUCTIVE: Multi fibroid uterus. Tampon in place. BONES: No acute fracture. OTHER FINDINGS: None. IMPRESSION: No acute abdominal pelvic pathology. Chronic findings as above. No significant interval change.
--- NOTE | 2018-07-16 17:37 | US ---
Date of service: 07/16/2018 HISTORY: Ileus COMPARISON: None. TECHNIQUE: Sonographic evaluation of the abdomen. FINDINGS: LIVER: Measures 16.7 cm. Smooth contour however increased echotexture likely due to fatty infiltration however other infiltrative hepatocellular disease process not excluded. No mass. No intrahepatic bile duct dilatation. GALLBLADDER: Cholecystectomy COMMON BILE DUCT: Measures 4.0 mm. Apparent air in the common bile duct. No definitive choledocholithiasis.. PANCREAS: Pancreas appears to be echogenic; rule out pancreatic calcifications RIGHT KIDNEY: Measures 11.1 x 4.3 x 4.7 cm. Normal echogenicity. No calculus, mass, or hydronephrosis. LEFT KIDNEY: Measures 11.0 x 5.5 x 5.2cm. Normal echogenicity. No calculus, mass, or hydronephrosis. SPLEEN: Normal in size (approximately 8.1 cm) and contour. No mass. AORTA: No aneurysmal dilatation. IVC: Unremarkable. OTHER FINDINGS: None. IMPRESSION: Liver is echogenic likely due to fatty infiltration however other infiltrative hepatocellular disease process not excluded. Cholecystectomy. Apparent air in the common bile duct. Echogenic pancreas; findings could be secondary to pancreatic calcifications
[2018-07-16] MEDS: (Lantus) Insulin Glargine, Recombinant SC SCH (21:31)
[2018-07-16] MEDS ORDERED: (Lantus) Insulin Glargine, Recombinant SC SCH (22:00)
[2018-07-17] MEDS: Lactated Ringer's 1,000 ML IV SCH ×3 (00:15→16:17)
[2018-07-17 03:51] LABS: ALB/GLOB RATIO 1.7 (1.0-2.1); ALT/SGPT 36 U/L (9-52); AST/SGOT 64 U/L (14-36); BLOOD UREA NITROGEN 3 mg/dL (7-17); GFR NON-AFRICAN AMERICAN > 60; HDL CHOLESTEROL > 110 mg/dL (30-70); LIPASE 10 U/L (23-300)
[2018-07-17 04:00] LABS: LDL CHOLESTEROL 74 mg/dL (0-129)
[2018-07-17] MEDS: (Novolog) Insulin Aspart, Recombinant 100 u/ml 10 ml vial SC SCH ×7 (07:54→21:19)
[2018-07-17] MEDS: Multivitamin With Minerals Tab PO SCH (09:19)
--- NOTE | 2018-07-17 11:19 | CON ---
DATE: 07/17/2018 ENDOCRINOLOGY CONSULT LOCATION: ICU, room 4. HISTORY OF PRESENT ILLNESS: This is a 38-year-old female with known history of type 1 insulin-dependent diabetes, presenting here with nausea, dyspepsia, vomiting and diffuse abdominal pain and is now being referred to endocrine evaluation and management. PAST MEDICAL HISTORY: As mentioned above, history of type 1 inulin-dependent diabetes in a combination of Levemir given as 20 units twice a day and NovoLog given as 9 units t.i.d. before meals, history of hypertension and dyslipidemia, history of chronic asthmatic bronchitis, history of generalized anxiety and depression on psychotropic medications as given, history of chronic gastritis with GERD also previous admissions for alcoholic-induced pancreatitis. She also has history of seizure disorder as noted. FAMILY HISTORY: Positive for diabetes and hypertension. SOCIAL HISTORY: The patient admits to nicotine dependence and chronic alcoholism worse in the last few weeks prior to admission. REVIEW OF SYSTEMS: Admits with generalize body weakness with episodic bouts of dizziness and lightheadedness worse on the day of admission. Also admits to disrupted sleep patterns as noted. No chest pain or palpitations. Her oral intake has been variable with nausea, dyspepsia and vague upper abdominal pain with supervening vomiting as noted. PHYSICAL EXAMINATION: GENERAL: An average-build female in no apparent distress. VITAL SIGNS: Blood pressure 160/90, pulse of 100 beats per minute regular, temperature 98, respirations 20. Height is 5 feet 8 inches, weight 147 pounds. HEENT: Head normocephalic. Eyes anicteric with pink conjunctivae. Funduscopy not possible at this time. Ears, nose, and throat otherwise normal. NECK: Supple. Thyroid gland is normal in size. No carotid bruits. No cervical adenopathy. CARDIOPULMONARY: Adynamic precordium. S1, S2 is rapid. Regular. LUNGS: Clear to auscultation. ABDOMEN: Flat, soft with positive bowel sounds. EXTREMITIES: No peripheral edema. Pulses are +2 bilaterally. LABORATORY DATA: Chemistries initially showed a BUN of 7, sodium 133, potassium 3.8, chloride 98, CO2 is 10, glucose is 237 and creatinine is 0.8. ASSESSMENT: This is a 38-year-old female with uncontrolled and decompensated type 1 insulin-dependent diabetes presenting here with diabetic ketoacidosis and dehydration related to drug omission and poor tolerance to insulin regimen as noted. PLAN OF MANAGEMENT: We will modify once again her basal and bolus insulin regimen, and add NovoLog given as 6 units t.i.d. before meals to start today as ordered. We will also resume her basal insulin with Lantus given as 24 units subcu at bedtime daily as given. We will titrate incremental as indicated to optimize metabolic control. We will continue the IV hydration to fully replenish the loss of fluids and electrolytes as given. We will modify the coverage scale with hypoglycemia and detailed orders have been given and NovoLog given as 6 units t.i.d. before meals as ordered. We also continue the Lantus given as 20 units subcu at bedtime daily as given. We will obtain serial chemistries and supplement accordingly as needed. We will follow. Marie De La Rosa MD
[2018-07-17] MEDS: LIPASE/PROTEASE/AMYLASE 21,000 U ECC PO SCH ×2 (11:54→16:15)
[2018-07-17 12:30] VITALS: RESP 20
--- NOTE | 2018-07-17 20:03 | CP.PCM.HP ---
Present on Admission - Present on Admission Any Indicators Present on Admission: Yes History of Uncontrolled Diabetes: Yes Past Patient History - Infectious Disease Hx of Infectious Diseases: None - Past Medical History & Family History Past Medical History?: Yes - Past Social History Smoking Status: Light Smoker < 10 Cigarettes Daily - PULMONARY Hx Asthma: Yes - NEUROLOGICAL Hx Seizures: Yes - HEENT Hx HEENT Problems: No - RENAL Hx Chronic Kidney Disease: No - ENDOCRINE/METABOLIC Hx Endocrine Disorders: Yes Hx Diabetes Mellitus Type 1: Yes Other/Comment: Diabetic Ketoacidosis - 08/2017 - HEMATOLOGICAL/ONCOLOGICAL Hx Anemia: Yes - INTEGUMENTARY Hx Dermatological Problems: No - MUSCULOSKELETAL/RHEUMATOLOGICAL Hx Arthritis: Yes - GASTROINTESTINAL Hx Gall Bladder Disease: Yes Hx Gastritis: Yes Hx Pancreatitis: Yes - GENITOURINARY/GYNECOLOGICAL Hx Genitourinary Disorders: No - PSYCHIATRIC Hx Anxiety: Yes Hx Depression: Yes Hx Substance Use: No - SURGICAL HISTORY Hx Cholecystectomy: Yes - ANESTHESIA Hx Anesthesia: Yes Hx Anesthesia Reactions: No Hx Malignant Hyperthermia: No Has any member of the family had a problem w/ anesthesia?: No Meds Allergies/Adverse Reactions: Allergies Allergy/AdvReac Type Severity Reaction Status Date / Time shellfish derived Allergy ANAPHYLAXIS Verified 07/15/18 18:28 Results - Vital Signs Recent Vital Signs: Last Vital Signs Temp 99 F 07/17/18 16:00 Pulse 82 07/17/18 16:00 Resp 20 07/17/18 16:00 BP 139/83 07/17/18 16:00 Pulse Ox 100 07/17/18 16:00 - Labs Result Diagrams: 07/16/18 05:50 07/17/18 03:35 Labs: Laboratory Results - last 24 hr 07/16/18 07/17/18 07/17/18 10:09 03:35 17:04 Sodium 134 Potassium 3.8 Chloride 102 Carbon Dioxide 25 Anion Gap 11 BUN 3 L Creatinine 0.6 L Est GFR ( Amer) > 60 Est GFR (Non-Af Amer) > 60 POC Glucose (mg/dL) 385 H Random Glucose 114 H D Hemoglobin A1c 9.7 H Calcium 9.0 Magnesium 2.0 Total Bilirubin 0.6 AST 64 H D ALT 36 Alkaline Phosphatase 108 Total Protein 6.4 Albumin 4.0 Globulin 2.4 Albumin/Globulin Ratio 1.7 Triglycerides 108 Cholesterol 187 LDL Cholesterol Direct 74 HDL Cholesterol > 110 H Lipase 10 L
--- NOTE | 2018-07-17 20:37 | PN ---
DATE: 07/17/2018 SUBJECTIVE: The patient is experiencing cough and palpitation. PHYSICAL EXAMINATION: VITAL SIGNS: Blood pressure 153/91, heart rate 84, temperature 99, respirations 20. HEENT: Normocephalic. CHEST: Clear. HEART: S1 and S2 regular. EXTREMITIES: No edema. LABORATORY DATA: Alcohol level on admission was 107 and beta-hydroxybutyrate was elevated. Today's SMA-7 was within normal limits except for glucose 114, BUN and creatinine of 3 and 0.6. Today's hemoglobin and hematocrit 9.3 and 29.2, white count and platelet count are within normal limit. Admitting EKG revealed sinus rhythm at rate of 81 with marked sinus arrhythmia. Abdomen and pelvic CT scan, no acute abdominal pelvic pathology. Abdomen and pelvis ultrasound, liver echogenic, likely due to fatty infiltrate. Cholecystectomy, apparently in the common bile duct, echogenic pancreas, could be secondary to pancreatic calcification. ASSESSMENT: 1. Ethyl alcohol intoxication. 2. Abdominal pain. 3. Uncontrolled diabetes mellitus. PLAN: Continue current lactated Ringer's and the patient is to continue Neurontin 600 mg three times daily, Protonix 40 mg intravenously twice a day, thiamine 100 mg twice a day, Zofran 4 mg hours p.r.n. Eron Suazo MD cc: Ismael Castro MD
[2018-07-17] MEDS: (Lantus) Insulin Glargine, Recombinant SC SCH (21:19)
--- NOTE | 2018-07-17 21:23 | PN ---
DATE: 07/17/2018 ENDOCRINOLOGY FOLLOWUP NOTE LOCATION: Room 669. SUBJECTIVE: This is a 38-year-old female with recent uncontrolled type 1 insulin dependent diabetes, presenting here with marked hyperglycemic accelerations and super weaning diabetic ketoacidosis and dehydration and is now being followed closely for metabolic management. She received vigorous IV hydration and intensive insulin therapy overnight, and at this time, has been taken off insulin drip infusion and transferred now to telemetry as noted. Her oral intake, however, remains quite variable at this time. Her glycemic levels overnight were fluctuating, but much improved and have ranged from 114 to 257 mg/dL. LABORATORY DATA: Her chemistry showed a BUN of 3, sodium 134, potassium 3.8, chloride 102, CO2 of 25, glucose 114, and creatinine 0.6. Her hemoglobin A1C is 9.7% which is elevated and indicative of suboptimal metabolic control of her diabetic condition even prior to this admission. ASSESSMENT: This is a 38-year-old female with uncontrolled and decompensated type 1 insulin dependent diabetes, presenting here with marked hyperglycemic accelerations and super weaning diabetic ketoacidosis and dehydration, and since then, improved clinically and metabolically as noted thereof. PLAN OF MANAGEMENT: She will receive vigorous intravenous hydration with intensive insulin therapy as mentioned above. At this time, we will modify her basal and bolus insulin regimen and increase the NovoLog to 6 units t.i.d. before meals to start today as ordered. We will also increase the basal insulin of Lantus to be given as 20 units subcu at bedtime daily to start tonight. We will continue the low-dose correction scale using NovoLog insulin as given. We will also continue the IV hydration with lactated ringers as given to optimize her loss of fluids and electrolytes as noted and expected. We will obtain serial chemistries accordingly. We will follow. Marie De La Rosa MD
[2018-07-18] MEDS: Lactated Ringer's 1,000 ML IV SCH ×3 (00:38→10:17)
[2018-07-18 02:41] VITALS: PULSE 95
[2018-07-18] MEDS ORDERED: Albuterol-Ipratrop 3 mg / 0.5 (3 ml) UD INH STA (03:38)
--- NOTE | 2018-07-18 05:54 | HP ---
CHIEF COMPLAINT: Abdominal pain, nausea, vomiting. HISTORY OF PRESENT ILLNESS: This is a 38-year-old female, well known to me with history of insulin dependent diabetes. She also has history of noncompliance. She is on insulin. She has history of chronic recurrent pancreatitis. She has history of alcoholism. She is noncompliant with diet, medications, and followup. She came to emergency room because of generalized weakness, tiredness, anoxia, malaise, fatigue. She complained of polyuria, polydipsia, polyphagia. She has generalized weakness. She has nausea. She has vomiting. She has abdominal pain which is diffuse. Along with that, she is unable to tolerate food. She is persistently vomiting, vomiting consist of projectile yellow liquidity stuff. Initially, there were food particles and now it is only yellow liquid. No blood. She has bowel movements. She has no melena. No hematochezia. She denies any fever. She has generalized weakness. She denies any shortness of breath, cough, congestion. She denies any sneezing, itchy eyes, itchy nose. She has frequency of urination. She denies any hematuria, pyuria. She has polyuria, polydipsia, polyphagia. The patient is not taking insulin persistently. She denies any hip pain, leg pain. She has tingling and numbness in the feet. PAST MEDICAL HISTORY: 1. Type 1 insulin dependent diabetes. 2. Pancreatitis, pancreatic insufficiency. 3. Alcoholism. SOCIAL HISTORY: She smokes. She drinks. CURRENT MEDICATIONS: She is on hydroxyzine, Levemir insulin. She is also on insulin aspart. She is on gabapentin, pantoprazole, ferrous sulfate, albuterol sulfate inhaler. PHYSICAL EXAMINATION: GENERAL: Young female, in no acute distress with frequency of urination, dehydrated. VITAL SIGNS: Blood pressure is 120/80, pulse 100, respiratory rate 20, temperature 99. SKIN: Dry. No bruises. No purpura. No ecchymosis. HEENT: Atraumatic, normocephalic. Negative pallor. Negative jaundice. Extraocular movements are intact. NECK: Supple. No JVD. No lymph node. No thyromegaly. CHEST WALL: Bilateral symmetrical expansion. LUNGS: Clear. No rales. No rhonchi. CARDIOVASCULAR SYSTEM: No heave. No thrills. ABDOMEN: There is diffuse tenderness. Hyperactive bowel sounds. No rigidity. Bowel sounds are hyperactive. No masses. RECTAL: Refused. PELVIC: Refused. EXTREMITIES: No clubbing, cyanosis, or edema. CENTRAL NERVOUS SYSTEM: The patient is awake, alert, and oriented x3. ASSESSMENT: 1. Acute diabetic ketoacidosis. 2. Dehydration. 3. Acute on chronic pancreatitis. 4. Alcoholism. PLAN: Admit. Detailed orders written. Seen and examined. Ismael Castro MD
[2018-07-18] MEDS: LIPASE/PROTEASE/AMYLASE 21,000 U ECC PO SCH (08:12)
[2018-07-18] MEDS: Multivitamin With Minerals Tab PO SCH (08:12)
[2018-07-18] MEDS: (Novolog) Insulin Aspart, Recombinant 100 u/ml 10 ml vial SC SCH ×4 (08:12→13:05)
[2018-07-18 09:02] VITALS: BP 127/80; TEMP 98.5; O2SAT 100
--- NOTE | 2018-07-18 12:57 | CARD ---
APPROVED REPORT Date of service: 07/15/2018 EKG Measurement Heart [id number] <Conclusion> Sinus rhythm with marked sinus arrhythmia Otherwise normal ECG
--- NOTE | 2018-07-18 14:48 | CP.PCM.PN ---
Subjective - Date & Time of Evaluation Date of Evaluation: 07/18/18 Time of Evaluation: 14:48 - Subjective Subjective: PATIENT SEEN AND EXAMINED AT THE BEDSIDE Objective - Vital Signs/Intake and Output Vital Signs (last 24 hours): Temp Pulse Resp BP Pulse Ox 98.5 F 95 H 20 127/80 100 07/18/18 09:01 07/18/18 09:01 07/18/18 09:01 07/18/18 09:01 07/18/18 09:01 Intake and Output: 07/18/18 07/18/18 06:59 18:59 Intake Total 1000 Balance 1000 - Medications Medications: Current Medications Al Hydrox/Mg Hydrox/Simethicone (Maalox Plus 30 Ml) 30 ml PO Q6H PRN PRN Reason: Indigestion / Heartburn Last Admin: 07/16/18 11:03 Dose: 30 ml Docusate Sodium (Colace) 100 mg PO DAILY [facility] Last Admin: 07/18/18 10:15 Dose: 100 mg Folic Acid (Folic Acid) 1 mg PO DAILY [facility] Last Admin: 07/18/18 10:15 Dose: 1 mg Gabapentin (Neurontin) 600 mg PO TID [facility] Last Admin: 07/18/18 13:05 Dose: 600 mg Hydroxyzine HCl (Atarax) 25 mg PO Q6H PRN PRN Reason: Allergy symptoms Last Admin: 07/18/18 10:15 Dose: 25 mg Lactated Ringer's (Lactated Ringer's) 1,000 mls @ 125 mls/hr IV .Q8H [facility] Last Admin: 07/18/18 10:17 Dose: Not Given Insulin Aspart (Novolog) 6 unit SC AC [facility] Last Admin: 07/18/18 13:05 Dose: 6 units Insulin Aspart (Novolog) 0 unit SC ACHS [facility] Last Admin: 07/18/18 13:01 Dose: Not Given Insulin Glargine (Lantus) 20 unit SC HS [facility] Last Admin: 07/17/18 21:19 Dose: 20 units Morphine Sulfate (Morphine) 2 mg IVP Q4 PRN PRN Reason: Pain, severe (8-10) Last Admin: 07/18/18 12:14 Dose: 2 mg Multivitamins/Minerals (Therapeutic-M Tab) 1 tab PO 0800 [facility] Last Admin: 07/18/18 08:12 Dose: 1 tab Ondansetron HCl (Zofran Inj) 4 mg IVP Q6H PRN PRN Reason: Nausea/Vomiting Last Admin: 07/16/18 00:10 Dose: 4 mg Pantoprazole Sodium (Protonix Inj) 40 mg IVP Q12H [facility] Last Admin: 07/17/18 21:19 Dose: 40 mg Sennosides (Senokot Tab) 8.6 mg PO DAILY [facility] Last Admin: 07/18/18 10:15 Dose: 8.6 mg Thiamine HCl (Vitamin B1 Tab) 100 mg PO BID [facility] Last Admin: 07/18/18 10:15 Dose: 100 mg - Labs Labs: 07/16/18 05:50 07/17/18 03:35 Assessment and Plan - Assessment and Plan (Free Text) Assessment: follow up with dr zaldivar in his office continue home medication new med colace 100 mg po daily activity as tolerated call dr zaldivar or go to the emergency room if symptom return or worsening
[2018-07-18] MEDS ORDERED: (Novolog) Insulin Aspart, Recombinant 100 u/ml 10 ml vial SC SCH (16:30)
--- NOTE | 2018-07-18 19:14 | PN ---
DATE: 07/18/2018 ENDOCRINOLOGY FOLLOWUP NOTE LOCATION: Room 669. SUBJECTIVE: This is a 38-year-old female with recent uncontrolled type 1 insulin-dependent diabetes, presenting here with diabetic ketoacidosis and dehydration and is now being followed closely for metabolic management. Her glycemic levels are fluctuating but improved and the glucose values have ranged from 256 to 333 mg/dL. LABORATORY DATA: Her chemistry showed a BUN of 3, sodium 134, potassium 3.8, chloride 102, CO2 of 25, glucose 114, and creatinine 0.6. ASSESSMENT AND PLAN: So at this time, we will modify once again her basal and bolus insulin regimen and increase the NovoLog to 12 units t.i.d. before meals to start today as ordered. We will continue the low-dose correction scale using NovoLog insulin as given. We will also modify her basal insulin with Lantus given as 24 units subcutaneously at bedtime daily to start tonight as ordered. We will obtain serial chemistries and supplement accordingly as needed. Moreover as she is scheduled for discharge today, would recommend that she resumes her home insulin drug combination of Levemir given as 20 units subcutaneously every 12 hours as ordered. She also has taken NovoLog given as 9 units t.i.d before meals as given. 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 We will follow. Marie De La Rosa MD
[2018-07-18] MEDS ORDERED: (Lantus) Insulin Glargine, Recombinant SC SCH (22:00)
--- NOTE | 2018-07-19 07:43 | CP.PCM.DIS ---
Provider - Provider Date of Admission: 07/15/18 21:08 Attending physician: Ismael Castro MD Consults: 07/15/18 22:26 Social Work Referral Routine Comment: silvia is 7 Physician Instructions: Reason For Exam: silvia is 7 07/16/18 16:17 Endocrinology Consult Routine Comment: Consulting Provider: Marie De La Rosa Consulting Physician: Marie De La Rosa Reason for Consult: h/o diabetes Time Spent in preparation of Discharge (in minutes): 30 Hospital Course - Lab Results Lab Results: Micro Results 07/17/18 12:38 Naris MRSA Culture - Final MRSA NOT DETECTED 07/16/18 00:37 Nose MRSA Culture (Admit) - Final MRSA NOT DETECTED Most Recent Lab Values WBC 5.7 K/uL (4.8-10.8) 07/16/18 05:50 RBC 3.57 Mil/uL (3.80-5.20) L 07/16/18 05:50 Hgb 9.3 g/dL (11.0-16.0) L 07/16/18 05:50 Hct 29.2 % (34.0-47.0) L 07/16/18 05:50 MCV 81.7 fL (81.0-99.0) 07/16/18 05:50 MCH 26.0 pg (27.0-31.0) L 07/16/18 05:50 MCHC 31.8 g/dL (33.0-37.0) L 07/16/18 05:50 RDW 21.2 % (11.5-14.5) H 07/16/18 05:50 Plt Count 153 K/uL (130-400) 07/16/18 05:50 MPV 9.0 fL (7.2-11.7) 07/16/18 05:50 Neut % (Auto) 68.3 % (50.0-75.0) 07/16/18 00:36 Lymph % (Auto) 23.6 % (20.0-40.0) 07/16/18 00:36 [place] % (Auto) 6.8 % (0.0-10.0) 07/16/18 00:36 Eos % (Auto) 1.5 % (0.0-4.0) 07/16/18 00:36 Baso % (Auto) 0.7 % (0.0-2.0) 07/16/18 00:36 Neut # (Auto) 4.8 K/uL (1.8-7.0) 07/16/18 00:36 Lymph # (Auto) 1.6 K/uL (1.0-4.3) 07/16/18 00:36 [place] # (Auto) 0.5 K/uL (0.0-0.8) 07/16/18 00:36 Eos # (Auto) 0.1 K/uL (0.0-0.7) 07/16/18 00:36 Baso # (Auto) 0.1 K/uL (0.0-0.2) 07/16/18 00:36 Sodium 134 mmol/L (132-148) 07/17/18 03:35 Potassium 3.8 mmol/L (3.6-5.2) 07/17/18 03:35 Chloride 102 mmol/L (98-107) 07/17/18 03:35 Carbon Dioxide 25 mmol/L (22-30) 07/17/18 03:35 Anion Gap 11 (10-20) 07/17/18 03:35 BUN 3 mg/dL (7-17) L 07/17/18 03:35 Creatinine 0.6 mg/dL (0.7-1.2) L 07/17/18 03:35 Est GFR ( Amer) > 60 07/17/18 03:35 Est GFR (Non-Af Amer) > 60 07/17/18 03:35 POC Glucose (mg/dL) 256 mg/dL (65-110) H 07/18/18 01:49 Random Glucose 114 mg/dL (65-105) H D 07/17/18 03:35 Hemoglobin A1c 9.7 % (4.2-6.5) H 07/16/18 10:09 Lactic Acid 0.7 mmol/L (0.7-2.1) 07/16/18 10:09 Calcium 9.0 mg/dl (8.6-10.4) 07/17/18 03:35 Phosphorus 1.7 mg/dL (2.5-4.5) L 07/16/18 10:09 Magnesium 2.0 mg/dL (1.6-2.3) 07/17/18 03:35 Total Bilirubin 0.6 mg/dL (0.2-1.3) 07/17/18 03:35 AST 64 U/L (14-36) H D 07/17/18 03:35 ALT 36 U/L (9-52) 07/17/18 03:35 Alkaline Phosphatase 108 U/L (38-126) 07/17/18 03:35 Total Protein 6.4 g/dL (6.3-8.3) 07/17/18 03:35 Albumin 4.0 g/dL (3.5-5.0) 07/17/18 03:35 Globulin 2.4 gm/dL (2.2-3.9) 07/17/18 03:35 Albumin/Globulin Ratio 1.7 (1.0-2.1) 07/17/18 03:35 Triglycerides 108 mg/dL (0-149) 07/17/18 03:35 Cholesterol 187 mg/dL (0-199) 07/17/18 03:35 LDL Cholesterol Direct 74 mg/dL (0-129) 07/17/18 03:35 HDL Cholesterol > 110 mg/dL (30-70) H 07/17/18 03:35 Amylase 62 U/L (30-110) 07/16/18 01:05 Lipase 10 U/L (23-300) L 07/17/18 03:35 TSH 3rd Generation 1.31 mIU/L (0.46-4.68) 07/16/18 10:09 Beta HCG, Quant < 2.39 mIU/ML 07/16/18 10:09 Urine Color Yellow (YELLOW) 07/15/18 19:48 Urine Clarity Hazy (Clear) 07/15/18 19:48 Urine pH 6.0 (5.0-8.0) 07/15/18 19:48 Ur Specific [place] 1.020 (1.003-1.030) 07/15/18 19:48 Urine Protein 2+ mg/dL (NEGATIVE) H 07/15/18 19:48 Urine Glucose (UA) 3+ mg/dL (Normal) H 07/15/18 19:48 Urine Ketones 2+ mg/dL (NEGATIVE) H 07/15/18 19:48 Urine Blood 3+ (NEGATIVE) H 07/15/18 19:48 Urine Nitrate Negative (NEGATIVE) 07/15/18 19:48 Urine Bilirubin Negative (NEGATIVE) 07/15/18 19:48 Urine Urobilinogen Normal mg/dL (0.2-1.0) 07/15/18 19:48 Ur Leukocyte Esterase Neg Mary/uL (Negative) 07/15/18 19:48 Urine WBC (Auto) 15 /hpf (0-5) H 07/15/18 19:48 Urine RBC (Auto) 51 /hpf (0-3) H 07/15/18 19:48 Ur Squamous Epith Cells 2 /hpf (0-5) 07/15/18 19:48 Urine Bacteria Few (<OCC) H 07/15/18 19:48 Urine HCG, Qual Negative (NEGATIVE) 07/15/18 19:48 Urine Opiates Screen Negative (NEGATIVE) 07/15/18 19:48 Urine Methadone Screen Negative (NEGATIVE) 07/15/18 19:48 Ur Barbiturates Screen Negative (NEGATIVE) 07/15/18 19:48 Ur Phencyclidine Scrn Negative (NEGATIVE) 07/15/18 19:48 Ur Amphetamines Screen Negative (NEGATIVE) 07/15/18 19:48 U Benzodiazepines Scrn Negative (NEGATIVE) 07/15/18 19:48 U Oth Cocaine Metabols Negative (NEGATIVE) 07/15/18 19:48 U Cannabinoids Screen Negative (NEGATIVE) 07/15/18 19:48 Alcohol, Quantitative 107 mg/dl (0-10) H 07/15/18 20:23 B-Hydroxybutyrate 4.02 mM (0.02-0.27) H 07/16/18 10:09 Discharge Exam - Head Exam Head Exam: ATRAUMATIC, NORMAL INSPECTION, NORMOCEPHALIC Discharge Plan - Discharge Medications Prescriptions: Docusate [Colace] 100 mg PO DAILY 30 Days cap - Follow Up Plan Condition: GOOD Disposition: HOME/ ROUTINE Instructions: Alcohol Withdrawal (DC), Ketoacidosis That Is Not Caused by Diabetes (DC), Docusate, Effects of Alcohol on Your Health, Diabetic Ketoacidosis (DC) Additional Instructions: follow up with dr castro in his office continue home medication new med colace 100 mg po daily activity as tolerated call dr castro or go to the emergency room if symptom return or worsening Referrals: Marie De La Rosa MD [Medical Doctor] - Ismael Castro MD [Staff Provider] -
--- NOTE | 2018-07-19 22:36 | DS ---
DISCHARGE DIAGNOSES: Poorly controlled diabetes with diabetic ketoacidosis, dehydration, pancreatic insufficiency, and alcoholism. HOSPITAL COURSE: This is a 38-year-old female, well known to me with history of type 1 diabetes, pancreatic insufficiency, who came in because of generalized weakness, polyuria, polydipsia, and polyphagia. The patient was admitted to the floor. She was admitted to ICU, started on IV fluid resuscitation, insulin, AccuChek sliding scale. Diabetic ketoacidosis was reversed, and the patient is feeling better. Her blood sugars are under better control. She is mainly noncompliant. If she comply, she will not get sick. CONDITION UPON DISCHARGE: Stable. DISCHARGE DIAGNOSIS: Diabetic ketoacidosis. The patient is for discharge. Ismael Castro MD
== END 2018-07-18 16:38 | disposition home or self-care (01) | DRG 566 ==
LOC: C.ER 18:19 → C.9E 21:08 → C.9I 21:34 → C.6T 07-17 12:52
PROVIDERS: ADMIT Internal Medicine; ATTEND Internal Medicine
DX: E10.10 Type 1 diabetes mellitus with ketoacidosis without coma (principal); K85.90 Acute pancreatitis without necrosis or infection, unspecified; E86.0 Dehydration; E10.43 Type 1 diabetes mellitus with diabetic autonomic (poly)neuropathy; Y90.5 Blood alcohol level of 100-119 mg/100 ml; F17.210 Nicotine dependence, cigarettes, uncomplicated; F10.220 Alcohol dependence with intoxication, uncomplicated; F41.1 Generalized anxiety disorder; E78.5 Hyperlipidemia, unspecified; I10 Essential (primary) hypertension; K31.84 Gastroparesis; K21.9 Gastro-esophageal reflux disease without esophagitis; G40.909 Epilepsy, unspecified, not intractable, without status epilepticus; K86.1 Other chronic pancreatitis; Z91.14 Patient's other noncompliance with medication regimen; Z91.11 Patient's noncompliance with dietary regimen; J45.909 Unspecified asthma, uncomplicated; F32.9 Major depressive disorder, single episode, unspecified